=== PATIENT | female | born 1965 | race Caucasian/White ===

== ENCOUNTER 2016-11-04 09:56 | Emergency (ER) | payer OTHER ==
[~2016-11-04] VITALS: Ht 165.1 cm; Wt 68.2 kg
[~2016-11-04 09:56] MED LIST: Acetaminophen PO; DOCU-41 PO; HYDROcodone-APAP 5-325 PO; NICO1PAT6 TOPICAL; SERT20OR PO
[2016-11-04 10:01] VITALS: BP 137/84; PULSE 100; RESP 16; O2SAT 100
--- NOTE | 2016-11-04 10:54 | ED.REPORT ---
HPI-Extremity Problem Lower Date of Service Nov 04, 2016 ED Provider: Joe Castillo MD Pt is a 50 y/o female w/ a hx of MS, chronic lower extremity edema, psoriasis, presenting to the ED from Urgent Care due to left leg wound. 6 months ago, the patient scraped the back of her left leg on a step stool which caused an abrasion that never seemed to heal. 2 weeks ago, the abrasion began to expand towards her ankle. She is able to bear weight on the leg without pain. She decided to be seen today because of white torres appearing and increased weeping. She c/o associated left leg weakness which she states is attributed to her MS. She denies fever, chills, extremity pain, numbness of the leg, nausea, vomiting. She has no recent antibiotic use and her psoriasis is untreated. She has no diagnosis of diabetes although she has a family history of diabetes. Nursing Notes Stated Complaint: LEFT LEG WOUND/ SENT FROM URGENT CARE Chief Complaint: Extremity Trauma Nursing Notes Reviewed: Yes Allergies: Coded Allergies: sulfamethoxazole (Verified Allergy, Severe, Rash, 10/22/15) trimethoprim (Verified Allergy, Severe, 10/22/15) Scheduled Docusate Sodium (Colace) 100 Mg Capsule 200 MG PO DAILY Nicotine 21 mg/24 hr Patch (Nicotine 21 mg/24 hr Patch) 1 Patch Patch 1 PATCH TOPICAL DAILY Sertraline HCl (Zoloft) 20 Mg/1 Ml Oral.conc 50 MG PO DAILY Scheduled PRN ([Acetaminophen]) 325 MG TABLET 650 MG PO Q4H PRN PRN For Pain ([HYDROcodone-APAP 5-325]) 1 TABLET TABLET 1 TABLET PO Q6H PRN PRN For Moderate Pain General Time Seen by MD: 10:09 Chief Complaint Other (leg wound left) Hx Obtained From: Patient Arrived By: Walk-in, Wheelchair Onset Occurred: More than a week ago... (2 weeks) Symptom Duration: Since onset Severity: Current: No pain currently Severity: Maximum: No pain Recent Healthcare: Previous diagnosis Similar Sx Previous: Yes Past Medical History Past Medical History Notes: Followed by Dr. Alvarado, Neurologist Past Medical History Multiple Sclerosis Chronic LLE wound Degenerative Disc Disease Psoriasis Past Surgical History none reported Smoking History Current Every Day Smoker, Unknown if Ever Smoker Social History Alcohol Use: "Social" Other Social History: Good social support, , Local resident Ambulatory Status Independent Review of Systems Constitutional: Denies: Chills, Fever Musculoskeletal: Reports: Extremity swelling, Denies: Extremity pain Skin: Reports Rash, Reports Swelling Neurologic: Reports: Weakness, Denies: Numbness Complete sys rev & neg: except as marked. GI: Denies: Nausea, Vomiting Hematologic: Denies Bleeding Physical Exam Initial Vital Signs Vital Signs (First) Date Time Temp Pulse Resp B/P Pulse Ox O2 Delivery O2 Flow Rate FiO2 11/04/16 10:01 36.3 100 16 137/84 100 Room Air Initial VS: Reviewed Head / Eyes: Atraumatic, Normocephalic, PERRL ENT: Mucous membranes moist, Conjunctiva normal, No scleral icterus Neck: Supple, Full range of motion Respiratory: Breath sounds normal, Clear to auscultation, No respiratory distress Cardiovascular: Regular rate & rhythm, Heart sounds normal, Intact distal pulses Abdomen / GI: Soft, No distention Neurologic: Alert, Oriented, Nonfocal Psychiatric: Mood/affect normal, Behavior normal, Normal thought content Lower Extremity / Pelvis / MS: Atraumatic, Full range of motion, No deformity, Neurologic intact, Vascular intact, No compartment syndrome Bilateral lower extremity pitting edema to the knees. Pretibial erythema bilaterally. Large psoriatic plaques about the LLE with weeping clear fluid present. No induration or signs of infection. No purulence. Ankle / Foot: No deformity, Neurologic intact, Vascular intact Skin: Atraumatic Color / Condition: Positive: Rash present Re-Eval/Medical Decision Med Decision/Clinical Course In summary, the patient is a 50-year-old female with a history of multiple sclerosis, chronic lower extremity edema/stasis dermatitis as well as psoriasis who presents to the emergency department from urgent care due to swelling and weeping of clear fluid from her left lower extremity. Upon arrival she is borderline tachycardic with a heart rate of 100 though otherwise afebrile with stable vital signs in no apparent distress. Examination of her leg is consistent with stasis dermatitis and overlying psoriatic plaques with associated cracking and weeping of clear fluid. There is no evidence of cellulitis, abscess in the drainage is not purulent. Moreover, she is afebrile. The lower extremity swelling is bilateral and chronic my suspicion given the overall clinical picture is very low for DVT. I do not feel that workup for DVT is indicated. I do not feel that antibiotics are indicated. Without any respiratory complaints suggestive of PE or cardiogenic etiology of her lower extremity swelling. I feel that at this time she requires wound care and lower extremity elevation. Due to the extent of her psoriasis she has not tolerated compression stockings in the past. Therefore I applied a nonadherent dressings and petroleum jelly. I applied an Ozzy bandage and advised her to elevate her legs daily basis. She was provided with follow-up and return precautions and verbalized understanding and agreement with the plan. She was discharged in good condition. Re-Evaluation/Progress : Time of Eval: 11:21 Patient Status: Condition improved Re-Evaluation/Progress Note: Pt rechecked. Informed pt of plan for treatment. Pt understands and agrees with plan for treatment. F/U instructions and RTER warnings given. All questions addressed. Counseled Regarding: Diagnosis, Need for follow-up, When/why to return to ED Discharge & Departure Impression: Primary Impression: Stasis dermatitis Laterality: bilateral Qualified Code: I83.11 - Varicose veins of right lower extremity with inflammation Additional Impressions: Psoriasis History of multiple sclerosis Disposition: Home Discharge Condition All VS Reviewed: Yes Condition: Stable Patient Instructions: Psoriasis (ED), Stasis Dermatitis (ED), Acute Wound Care (ED) Additional Instructions: Thank you for seeking care at emergency room. It is difficult for us to make definitive diagnoses in the ED but we believe that you are experiencing stasis dermatitis and psoriasis. Our primary goal today in the ED was to evaluate you for any life-threatening conditions. Your evaluation was reassuring. Generously apply petroleum jelly followed by a nonadhering dressing to your legs by gentle pressure with ozzy bandages. Perform this daily. Elevate your legs above your body multiple times per day. You should follow-up with your primary doctor in the next week. You should return to the ED immediately if you develop drastic spreading of the rash, discolored discharge from the wound, fevers, vomiting, cough, shortness of breath, chest pain, lightheadedness, weakness or any other concerning signs or symptoms. Thank you for letting us partake in your care today. Referrals: [facility] Res[facility] (PCP) Scribe Attestation Portions of this note were transcribed by Michael Stringer. I, Dr. Castillo personally performed the history, physical exam and medical decision-making; I reviewed and confirmed the accuracy of the information in the transcribed note. Signed by Yana Trammell, 11/04/16 - 2300 copies to: [facility] Joe Castillo MD Nov 04, 2016 10:54 MICHAEL STRINGER Nov 04, 2016 11:05
[2017-03-12] MEDS ORDERED: TRAM-14 PO (07:57)
[2017-03-12] MEDS ORDERED: GABA100C PO (07:57)
[2017-03-12] MEDS ORDERED: METR500T PO (07:57)
== END 2016-11-04 12:06 | disposition home or self-care (01) ==
LOC: SED 09:56
DX: I83.12 Varicose veins of left lower extremity with inflammation (principal); L40.0 Psoriasis vulgaris; G35 Multiple sclerosis; S80.812A Abrasion, left lower leg, initial encounter; X58.XXXA Exposure to other specified factors, initial encounter; Y92.9 Unspecified place or not applicable; Y93.89 Activity, other specified; Y99.8 Other external cause status; F17.200 Nicotine dependence, unspecified, uncomplicated; Z88.2 Allergy status to sulfonamides; Z88.1 Allergy status to other antibiotic agents
CPT/HCPCS: 99283; G0463

== ENCOUNTER 2016-11-09 23:41 | Inpatient (IN) | payer OTHER, MEDICAID ==
[~2016-11-09] VITALS: Ht 165.1 cm; Wt 65.9 kg
[2016-11-09 23:52] VITALS: BP 134/83; PULSE 111; RESP 20; O2SAT 98
[2016-11-10] VITALS (9 sets, daily range): BP systolic 99–124; BP diastolic 48–78; PULSE 102–118; RESP 18–22; O2SAT 92–100
--- NOTE | 2016-11-10 00:36 | ED.REPORT ---
HPI-Extremity Problem Lower Date of Service Nov 10, 2016 ED Provider: Dr. Orlando Engel D.O. A 50 year old female with a history of multiple sclerosis, psoriasis, chronic lymphedema, and a chronic left leg wound presents to the ED with left leg pain onset today. The leg is red and swollen, with foul-smelling discharge. Associated symptoms include fever and chills. The patient was seen in the ED five days ago with similar symptoms, which have worsened since then. Nursing Notes Stated Complaint: LEFT LEG PAIN Chief Complaint: General Complaint Nursing Notes Reviewed: Yes Allergies: Coded Allergies: sulfamethoxazole (Verified Allergy, Severe, Rash, 11/09/16) trimethoprim (Verified Allergy, Severe, 11/09/16) Scheduled Aspirin (Aspirin) 81 Mg Tablet 81 MG PO DAILY Scheduled PRN Ibuprofen (Ibuprofen) 100 Mg Tablet 100 MG PO QID PRN PRN For Pain General Time Seen by MD: 00:36 Chief Complaint Other (Left leg pain) Hx Obtained From: Patient Arrived By: Walk-in Onset Occurred: 5 - 8 hours ago Symptom Duration: Since onset Location: : Leg left Quality: Painful Severity: Current: Moderate Severity: Maximum: Moderate Associated with: Reports: Fever (Subjective), Swelling (Left leg) Pertinent Negative: Relieved by nothing Immunizations: Unknown Recent Healthcare: Recent doctor visit Similar Sx Previous: Yes Past Medical History Past Medical History Notes: Followed by Dr. Alvarado, Neurologist Past Medical History Multiple Sclerosis Chronic LLE wound Degenerative Disc Disease Psoriasis Stasis Dermatitis Past Surgical History none reported Smoking History Current Every Day Smoker, Unknown if Ever Smoker Social History Alcohol Use: "Social" Other Social History: Good social support, , Local resident Ambulatory Status Independent Review of Systems Review of Systems Note: + left leg redness, foul-smelling discharge Constitutional: Reports: Chills, Fever (Subjective) Musculoskeletal: Reports: Extremity pain (Left leg), Extremity swelling (Left leg) Complete sys rev & neg: except as marked. Respiratory: Denies: Non-productive cough, Shortness of breath GI: Denies: Vomiting Physical Exam Initial Vital Signs Vital Signs (First) Date Time Temp Pulse Resp B/P Pulse Ox O2 Delivery O2 Flow Rate FiO2 11/09/16 23:52 36.8 111 20 134/83 98 Room Air Initial VS: Reviewed Head / Eyes: Atraumatic, Normocephalic Respiratory: Breath sounds normal, Clear to auscultation, No respiratory distress Abdomen / GI: Soft, Non-tender Neurologic: Alert, Oriented, Nonfocal Psychiatric: Mood/affect normal, Behavior normal, Normal thought content Lower Extremity / Pelvis / MS: Vascular intact Right Leg / Calf: Positive: Swelling present... Left Leg / Calf: Positive: Erythema present, Swelling present... Scrapes present on left leg Foul-smelling discharge from left leg General/Constitutional: Awake, Alert Distress / Hydration: Positive: Distress moderate (writhing in pain) Cardiovascular: Regular rhythm, Heart sounds NL, Cap refill not delayed Heart Rate / Rhythm: Positive: Tachycardia ENT: Airway patent Mouth: Positive: Mucous membranes dry Interpretation & Diagnostics Lab Results Interpretation Result Diagram: 11/11/16 0555 11/11/16 0555 Test 11/10/16 01:40 Hold Purple Top Tube Received (Received) D-Dimer 0.7mg/L (<0.50) Lactic Acid Level 1.3mmol/L (0.4-2.0) Hold Red Top Tube Received (Received) Hold [place] Top Tube Received (Received) Hold Becerra Top Tube Received (Received) Re-Eval/Medical Decision Med Decision/Clinical Course 50-year-old female presents complaining of severe left leg pain and redness. This was a very difficult historian. Most the time she seemed to writhe about in pain. She would come around with prompting answers questions. Her family was present for a while as well. Evidently they were recently seen in the emergency department. They are not exactly sure when but I can certainly check these records. She was told that she has some sort of dermatitis and discharged home with dressings. I do not believe that the dressings have been changed. Either way she presents now complaining of fever and increasing pain and foul smell from the dressings. The actual chronicity of her symptomatology is uncertain to me. It would seem to get different answers from family members. On examination she was somnolent but at times she will wake up and talk to me. Initially when she came in she was far more conversant. She then received some IV opiates it was very difficult to get a accurate history after that. She does have poor dentition without evidence of an oral pharyngeal infection. Her neck was supple without evidence of meningitis. Her lungs were clear. She was tachycardic about 120 initially. Her belly was soft without tenderness. She has edema of both legs but there certainly is some erythema of the left leg. We took the dressings off and there was some sort of dressing material/ointment on her legs. It all had a foul smell to it. Her feet were dirty. We washed all of this up and I was able to compare her legs [id number]. Her left leg is definitely brighter red than her right leg. She does have Doppler pulses. Laboratory work showed a 16,000 white blood cell count. Due to her waxing and waning mental status a CT was performed. This showed changes consistent with MS. She also had pain with range of motion of her left shoulders were x-rayed this. I do not see anything beyond arthritic changes. It is difficult to say exactly what is going on with her. She certainly could have a sepsis syndrome from cellulitis and this could be leading to encephalopathy. No signs of meningitis. I doubt highly she has pneumonia. Urine is pending at time of this dictation. I am going to start her on anti- staph and strep antibiotics. We will admit her to the hospitalist service. Hopefully her mental status clears after the opiates have run their course and that she is adequately fluid resuscitated. Consider ultrasound if the swelling persists and her d-dimer is elevated. Re-Evaluation/Progress : Time of Eval: 02:40 Patient Status: Condition improved Re-Evaluation/Progress Note: Discussed with patient lab results, diagnosis, and plan for admit. Patient agrees with plan for care and all questions were addressed. Consultation : Referral / Consult Name: Wilton Cabrera MD Consulted With: Hospitalist Call Returned at: 02:48 Pr Manager: Agrees with eval, Agrees with plan, Accepts admit Counseled Regarding: Diagnosis, Lab results, Need for admission Discharge & Departure Impression: Primary Impression: Cellulitis Site of cellulitis: extremity Site of cellulitis of extremity: lower extremity Laterality: left Qualified Code: L03.116 - Cellulitis of left lower limb Additional Impression: Lymphedema of both lower extremities Disposition: ADMITTED TO HOSPITAL Discharge Condition All VS Reviewed: Yes Condition: Improved Referrals: [facility] Residency Clinic (PCP) Scribe Attestation Portions of this note were transcribed by Valeria Alegria. I, Dr. Engel, personally performed the history, physical exam, and medical decision-making; I reviewed and confirmed the accuracy of the information in the transcribed note. Signed by: Yana Campos, 11/10/2016, 02:50 copies to: [facility] Orlando Engel DO Nov 10, 2016 00:36 VALERIA ALEGRIA Nov 10, 2016 02:20 Alkaline Phosphatase 92U/L (25-150) C-Reactive Protein 0.8mg/dL (0.0-0.5) Total Protein 7.8g/dL (6.4-8.4) Albumin 3.6g/dL (3.4-5.0) Procalcitonin 0.05ng/mL (0.00-0.08) Hold Red Top Tube Received (Received) Hold [place] Top Tube Received (Received) Hold Becerra Top Tube Received (Received) Re-Eval/Medical Decision Re-Evaluation/Progress : Time of Eval: 02:40 Patient Status: Condition improved Re-Evaluation/Progress Note: Discussed with patient lab results, diagnosis, and plan for admit. Patient agrees with plan for care and all questions were addressed. Consultation : Referral / Consult Name: Wilton Cabrera MD Consulted With: Hospitalist Call Returned at: 02:48 Pr Manager: Agrees with eval, Agrees with plan, Accepts admit Counseled Regarding: Diagnosis, Lab results, Need for admission Discharge & Departure Impression: Primary Impression: Cellulitis Site of cellulitis: extremity Site of cellulitis of extremity: lower extremity Laterality: left Qualified Code: L03.116 - Cellulitis of left lower limb Additional Impression: Lymphedema of both lower extremities Disposition: ADMITTED TO HOSPITAL Discharge Condition All VS Reviewed: Yes Condition: Improved Referrals: [facility] Res[facility] (PCP) Yana Attestation Portions of this note were transcribed by Valeria Alegria. I, Dr. Engel, personally performed the history, physical exam, and medical decision-making; I reviewed and confirmed the accuracy of the information in the transcribed note. Signed by: Yana Campos, 11/10/2016, 02:50 copies to: [facility] Orlando Engel DO Nov 10, 2016 00:36 VALERIA ALEGRIA Nov 10, 2016 02:20
[2016-11-10] MEDS ORDERED: Piperacillin-Tazo 3.375 Gm Inj 3.375 GM in Dextrose 5% Minibag Plus 50 ML IV ONE (01:05)
[2016-11-10] MEDS: HYDROmorphone 0.5 mg/0.5 mL iSecure Syringe IVPUSH PRN ×4 (01:39→05:55)
[2016-11-10 02:28] LABS: BASOPHILS % (AUTO) 0.1 % (0-3); EOSINOPHILS % (AUTO) 2.1 % (0-5); MONOCYTES % (AUTO) 6.5 % (4-12); Mean Corpuscular Hemoglobin 27.7 pg (27.0-35.0); Mean Corpuscular Volume 89.1 fL (81-100); NEUTROPHILS % (AUTO) 84.6 % (40-74); Platelet Count 476 bil/L (150-400)
[2016-11-10] MEDS: 0.9% Sodium Chloride 1,000 ML IV SCH ×3 (02:48→21:56)
[2016-11-10] MEDS ORDERED: Polyethylene Glycol (PEG) 17 Gm Powder PO PRN (02:50)
[2016-11-10] MEDS ORDERED: Ondansetron 2 mg/mL 2 mL Inj IVPUSH PRN (02:50)
[2016-11-10] MEDS ORDERED: Alum-Mag Hydrox-Simeth 30 mL Suspension PO PRN (02:50)
[2016-11-10] MEDS ORDERED: 0.9% Sodium Chloride 1,000 ML IV SCH (04:00)
--- NOTE | 2016-11-10 04:15 | PCM.CONPHA ---
Assessment/Plan Assessment/Plan Pharmacy Kinetic Dosing Vancomycin Indication: CELLULITIS Vanc goal trough: 10-15 mcg/mL Pt wt: 65.9 kg Other ABX: ZOSYN Cultures: Blood PENDING SCr: 0.60 mg/dL Assessment/Plan: - Loading dose of Vancomycin 1250 mg given in ED for (20 mg/kg dosing) -Will continue Vancomycin 1000 mg Q12H (15 mg/kg dosing) with trough scheduled prior to 4th dose on -NOV @1500 Pharmacy appreciates consult and will continue to monitor. Renetta Garcia PharmD Nov 10, 2016 04:15
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
--- NOTE | 2016-11-10 06:27 | NUR ---
ADMIT/PAIN Pt arrived to [facility] @ 0530, non-verbal and groaning with movement and repositioning. Pt vitals stable, 0.5mg Diladid given, with good results. Pt has a 20 gauge left AC with NS @ 100. Pt has LLE wrapped and tender to touch. Left hip has wound/burn covered, CDI, with wound consult. Pt on tele, SR. Admit limited on information due to patient being non-verbal at the time of arrival. No other issues noted at this time. Addendum: 11/10/16 at 0707 by ALANNA FOWLER RN LEFT HIP WOUND Pt had left hip wound covered on arrival, but dressing removed for assessment. Dressing left off for shift repot. Wound/burn shown to oncoming RN with wound evaluation ordered. Wound tender to touch, slight drainage after dressing removal. Center of wound is dark in color with redness surrounding. Wound covers large portion of the trochanter area.
[2016-11-10] MEDS ORDERED: Vancomycin Dose per Pharmacist XX SCH (08:30)
[2016-11-10] MEDS: Piperacillin-Tazo 3.375 Gm Inj 3.375 GM in Dextrose 5% Minibag Plus 50 ML IV SCH ×2 (09:25→18:51)
[2016-11-10] MEDS: Heparin 5,000 Unit/mL Inj SUBQ SCH ×2 (09:26→16:48)
--- NOTE | 2016-11-10 09:50 | DRSVH ---
PROCEDURE: CT BRAIN WITHOUT CONTRAST ([id number]) INDICATIONS: Altered mental status. Additional history obtained from chart review reveals history of multiple sclerosis. TECHNIQUE: Noncontrast 4.5 mm thick angled axial sections acquired from the foramen magnum to the vertex, with c oronal reformats. COMPARISON: [facility], MR, BRAIN W&W/O CONTRAST, 03/22/2013, 14:44. FINDINGS: Image quality: Excellent. CSF spaces: Basal cisterns are patent. No extra-axial fluid collections. Ventricles are normal in size and shape. Brain: No midline shift. Low density foci are seen within the bilateral periventricular and subcorti [place] white matter, as before, largest of which is in the right parietal periventricular white matter m easuring 14 mm, consistent with the patient's history of multiple sclerosis. No intracranial masses o r hemorrhage. Cade-white matter interface is normal. Skull and face: Calvarium and visualized facial bones are intact, without suspicious lesions. Sinuses: Visualized sinuses and mastoids are clear. IMPRESSION: 1. No acute intracranial abnormality. 2. Low density white matter lesions bilaterally, consistent with multiple sclerosis. Dictated by: Noble Ramires M.D. on 11/10/2016 at 9:45 Approved by: Noble Ramires M.D. on 11/10/2016 at 9:48
--- NOTE | 2016-11-10 09:57 | DRSVH ---
PROCEDURE: X-RAY LEFT SHOULDER, MINIMUM TWO VIEWS ([id number]) INDICATIONS: left shoulder pain TECHNIQUE: 3 views of the shoulder were acquired. COMPARISON: None. FINDINGS: Bones: No fractures or dislocations. No suspicious bony lesions. Visualized ribs appear intact. M ild joint narrowing with periarticular osteophyte formation. Superior migration of the humeral head. Soft tissues: No suspicious soft tissue calcifications. IMPRESSION: Mild acromioclavicular and glenohumeral joint degeneration. Superior migration of the humeral head consistent with rotator cuff pathology and/or muscle atrophy. If indicated MRI could be performed to further evaluate the soft tissues. Dictated by: Hao CUENCA Interpreted: Caryn Galindo MD on 11/10/2016 at 9:56 Transcribed by: MOHAN on 11/10/2016 at 9:57 Approved by: Caryn Galindo MD, PhD on 11/10/2016 at 15:50
[2016-11-10] MEDS ORDERED: HYDROmorphone 1 mg/mL Inj IVPUSH ONE (10:05)
--- NOTE | 2016-11-10 10:30 | NUR ---
Wound Care Wound evaluation order received, pt seen at bedside for assessment of left hip ulcer and left leg ulcer. Dunia Jerez is a 50 year old female with Multiple sclerosis, psoriasis, chronic lymphedema, and a chronic left leg wound presents to [facility] emergency department with left leg pain. Reportedly her left thigh wound is secondary to falling on a heater vent in her RV. This could be plausible, the other cause would be possible pressure injury phenomena, unsure of patients baseline mobility at this time. At any rate there is a 6 cm L x 3.5 cm W ulcer at her left hip that is covered with a leathery chawla eschar, this was removed to assess underlying tissue which appears to be necrotic fat, wound is not infected at this time. Wound does not tunnel either. After debriding this wound it was cleaned with hydrogen peroxide and betadine then redressed with hydrogel and a adhesive foam dressing. Attention was then turned to her left lower leg which has all the markings of venous hypertension and lymphedema with chawla staining and edema, the lower leg is circumferentially covered with a stasis dermatitis and the skin is excoriated, this area too was treated with hydrogen peroxide and betadine and was then covered with a Xeroform dressing and abd pad and kerlix wrapped. Pt will be best served treating the left hip wound as if it is a pressure injury so will need positioning off of the wound and a low airloss mattress. Wound care will reassess these wounds in 24 hours. Addendum: 11/17/16 at 1117 by CYNTHIA ALEX NonExcisional debridement of necrotic tissue using a #10 blade down to subcutaneous tissue. Left hip wound measures 6 cm L x 3.5 cm W x 0.2 cm D after debridement.
[2016-11-10 11:52] LABS: APPEARANCE,URINE HAZY (CLEAR,HAZY); COLOR,URINE YELLOW (YELLOW); OCCULT BLOOD,URINE TRACE (NEGATIVE); UROBILINOGEN,URINE NORMAL (NORMAL)
--- NOTE | 2016-11-10 12:04 | CONS ---
[address] [address] CONSULTATION REPORT PATIENT: DARLENE DIAZ : 1965 MR#: [id number] ADMIT: 11/10/2016 JOB ID: [id number] DATE OF SERVICE: 11/10/2016 INFECTIOUS DISEASE CONSULTATION: I thank Dr. Tucker for this consultation. REASON FOR CONSULT: Possible left lower extremity infection. HISTORY OF THE PRESENT ILLNESS: The patient is a woman who lives in an in the [place] area with her . She has a 15-year history of multiple sclerosis with progressive difficulties apparently with speech locomotion and especially left lower extremity weakness. She has been followed intermittently by Dr. Alvarado of neurology and states she has not seen a primary care doctor for a while. She was brought to the emergency department last night and admitted. It was stated at that time that the patient is basically unresponsive at her normal baseline and that she had progressive swelling and tenderness of the left lower extremity. This had apparently been going on for some weeks. It may been exacerbated by a fall and striking her chronically weak and swollen left lower extremity on a part of the RV which may have made all of this worse over a week or two. This history was largely obtained apparently in the ED from her , who also stated that at baseline she is almost unresponsive. This morning when I initially started to examine the patient, she did not really appear to be able to answer any questions as the history provided in the ED might suggest. However, with some coaxing we actually were able to get the patient completely awake. Though a bit lethargic, she was able to tell us her exact location, as well as the year, and answer many of the questions related to her current presentation. This is at variance with what was provided in the ED and that, in and of itself, is quite odd. The patient tells us this morning that for three months or so her left lower extremity has been bothering her. She states it has been injured multiple times by falls, and it has been red, swollen and, to some degree, weeping lately. She also tells us that her ambulation is very poor because of her multiple sclerosis and she needs help to get around. She notes that she is incontinent of urine and that the chart notes from 2014, when she was last admitted, confirmed that she has urinary incontinence, so it sounds like she has been sitting with wet diapers or in her own urine for a considerable period. Despite this worsening of the left lower leg pain and swelling, she denies significant fevers or chills. She notes that she has a chronic lesion on her left hip but has not been especially problematic lately. PAST MEDICAL HISTORY: 1. Multiple sclerosis. 2. Chronic venous stasis changes of both lower extremities. 3. Urinary incontinence. Presumably due to multiple sclerosis. 4. Inability to safely ambulate. The patient tells us she uses a wheelchair to get around. SOCIAL HISTORY: The patient is a 50-year-old woman who lives with her in an . She states her is retired and usually with her, and he will have people check in on her when he is not available. That said, she does have a lot of trouble getting up and with toileting and other functions. She states she is a cigarette smoker, though it is unclear how much of that has been recent. She also tells us she does not drink alcohol, and she does smoke marijuana. She does not use heroin or amphetamines by her report. She tells us a recent accident with her daughter's dog left her with a severe injury to her teeth. She also tells us she has three children. FAMILY HISTORY: The patient states no one in her immediate family including parents, children, or siblings have had tuberculosis. REVIEW OF SYSTEMS: Done to the extent it was possible given the patient's weakness and lethargy. She tells us today she has no headache, no acute visual change, no double vision. No sore throat. She does note her teeth are in poor repair. She states no cough. No shortness of breath. No chest pain. No nausea, no vomiting and no diarrhea. She states she is able to eat and has a fair appetite. She says she is usually or always, it is hard to tell, incontinent of urine but not stool. She notes she has chronic left lower extremity pain and cannot ambulate without a great deal of assistance. She notes that she has had a chronic lesion on her left hip and three months of increasing pain around her left lower extremity. Remainder of the review of systems is negative. PHYSICAL EXAMINATION: Reveals a chronically ill woman lying on her side in a hospital bed. We examined her with the wound rn disease management, as well as with the Nursing team and the Primary Hospitalist team as well. The patient initially appeared to be unresponsive and was just occasionally moaning as her left hip wound was being debrided but with some effort, it became clear that she is actually oriented x3 and has some insight into her condition. She does appear to be emotionally labile, however. Her current temperature is 37 degrees, and she has been afebrile during her brief hospital stay. Her pulse is 100, respiratory rate 20, blood pressure 124/78, saturating 97% on room air. Her eyes have conjugate gaze. There is no conjunctival change or scleral icterus. The nose is normal appearing. The teeth are largely chipped or broken, and they appear almost desiccated and in very poor maintenance. The throat is without pharyngitis. Neck is supple this morning, without adenopathy. Lungs quite clear posteriorly. Cardiac tones: Regular rate and rhythm without murmurs. No notable abnormalities of the breasts. The patient's abdomen is soft and nontender, without organomegaly or ascites. She does not have a Cordero catheter. She does not have suprapubic fullness. Her upper extremities appear essentially benign. Her lower extremities, both have some venous stasis type change and mild edema. The left leg is much worse, however, below the knee in that there are areas of confluent bright erythema with some shallow bullae present over the top which has the appearance of a cellulitis. This area is warm and somewhat tender and was cultured today. The patient's hips were examined, and the left hip had a 6 x 3 cm eschar over the trochanteric area. This was sharply debrided by the wound rn disease management while we were in the room and underneath was of fairly unimpressive stage 3 ulcer, which did not appear to be infected. There was also a confluent erythroderma around her buttocks and genitals which could be due to just irritation from urine or conceivably could be fungal. The feet are without evidence of skin breakdown or infection bilaterally. The patient's neurologic status is difficult to evaluate. She is oriented x3 and she can clearly move her upper extremities but we saw little evidence of motion of the lower extremities, which appear to be suffering from some degree of disuse, though a formal neuro exam could not be done due to the patient's discomfort and positioning. It would be worthwhile to have Physical Therapy formally evaluate her motor functions. Remainder of the physical exam was noncontributory. LABORATORIES: Include white count 16,000, hematocrit 36, platelet count 476,000. Creatinine 0.62. LFT basically normal. CRP 0.8, very slightly increased. Procalcitonin 0. Blood cultures are pending. DIAGNOSTIC STUDIES: Venous study of the left lower extremity has been done but not read. A brain CT shows multiple sclerosis type lesions bilaterally with low density white matter lesions. An x-ray of her shoulder shows AC and glenohumeral degeneration on the left shoulder which she has been complaining about intermittently. IMPRESSION: This is a very unfortunate woman with multiple sclerosis for 15 years. It would appear that she is not getting out of bed or out of a chair very often and spending a great deal of time sitting giving the hip lesion, which I failed to mention in my physical but which measures 6 x 3 cm and has an eschar over it on the left hip, as well as the generalized erythroderma around her buttocks and the venous stasis in both legs with superimposed cellulitis on the left side, the combination of urinary incontinence and immobility, which seem to be contributing to a great deal of her current issues. With respect to infection, the only really impressive thing here is her white count of 16,000 with minimal left shift. Her procalcitonin, CRP and other studies argue against a life-threatening infection, certainly. At this point, I think we will need to cover the patient for common skin type organisms such as staphylococcus, streptococcus and perhaps even anaerobes briefly. I see no particular reason to think this patient would have methicillin-resistant Staphylococcus aureus and absolutely would not give her a methicillin-resistant Staphylococcus aureus drug such as vancomycin. RECOMMENDATIONS: 1. MRSA screen of the nares has been ordered. 2. We cultured the left lower extremity. 3. ASO titer was added to her labs. 4. We await the cultures which have been sent. 5. She is currently on vancomycin and Zosyn, and I think at a minimum we could stop the vancomycin immediately and will reconsider the Zosyn tomorrow. 6. This patient should be evaluated both by Social Work for her home situation, as well as by Physical Therapy to see how much she can do. 7. The duration and type of the antibiotic she should receive will depend on our studies. 8. This patient may be candidate for a SNF, at least for a brief period to recover.
[2016-11-10] MEDS ORDERED: ASPI-973 PO (12:12)
[2016-11-10] MEDS ORDERED: IBUP100T7 PO (12:13)
--- NOTE | 2016-11-10 12:30 | NUR ---
Evaluation completed. Please go to "Notes" then click on "Assessments and Notes" (bottom left corner of screen). Then select appropriate discipline tab on top of screen.
--- NOTE | 2016-11-10 12:40 | DRSVH ---
PROCEDURE: US VEINOUS LEG DUPLEX UNILATERAL, LEFT INDICATIONS: swelling pain r/o dvt TECHNIQUE: Real-time imaging, as well as color and pulse Doppler interrogation, were performed of the lower extr emity deep veins from the inguinal ligament to the popliteal fossa. COMPARISON: None. FINDINGS: The deep veins are normally compressible, and free of intraluminal thrombus. Color and pu lse Doppler demonstrate normal phasic intraluminal flow. There is normal augmentation response to di stal compression maneuver. A large multiple groin lymph nodes. IMPRESSION: 1. No deep venous thrombosis identified within the left lower extremity. 2. Enlarged morphologically normal appearing groin lymph nodes measuring up to 1.2 cm. Recommend cli nical management and followup. Dictated by: Hao Rene [facility] Interpreted: Caryn Galindo MD on 11/10/2016 at 12:39 Transcribed by: MOHAN on 11/10/2016 at 12:39 Approved by: Caryn Galindo MD, PhD on 11/10/2016 at 16:29
--- NOTE | 2016-11-10 13:29 | PCM.PNMED ---
Subjective Date of Service Nov 10, 2016 Subjective Dunia Jerez is a 50 year old female with Multiple sclerosis, psoriasis, chronic lymphedema, and a chronic left leg wound presents to [facility] emergency department with left leg pain. Admitted for cellulitis. Hospital day 1. Overnight: Patient was admitted and started on emperic antibiotics including vancomycin and zosyn. Today: Patient is lethargic but able to answer questions appropriately. She is alert and oriented 3. She states that she is being treated by Dr. Alvarado for her multiple sclerosis. She said she is able to walk with a walker and assistance. Otherwise uses her wheelchair. She states her left lower extremity is painful and has been for greater than 3 months. She denies any pain associated with left hip pressure ulcer. She denies any fever, chills, night sweats, chest pain, shortness of breath, nausea, vomiting, diarrhea. She is an every day smoker but denies any alcohol or illicit drug use. Remaining review of systems negative. Exam Vital Signs Vital Sign - Last Date Time Temp Pulse Resp B/P Pulse Ox O2 Delivery O2 Flow Rate FiO2 11/10/16 07:06 102 11/10/16 05:30 37.0 20 124/78 97 Room Air Intake and Output 11/09/16 11/09/16 11/10/16 Cumulative From/Thru 15:00 23:00 07:00 11/09/16 23:52 - 11/10/16 06:25 Intake Total 1100 ml 1100 ml Balance 1100 ml 1100 ml Intake IV Total 1100 ml 1100 ml Exam General: Alert, Oriented X3, Cooperative, No acute distress Eyes: PERRLA, Scleral Anicteric Mouth: Poor dentition, mucous membranes dry. Neck: Supple, no Thyromegaly, trachea central. Chest & Lungs: Clear to auscultation & percussion, No adventitious breath sounds, no crackles, no wheeze Cardiovascular: Normal S1, Normal S2, No Murmurs/Rubs/Gallops, Regular Rate/ Rhythm Pulses: Radial (present and equal), Dorsalis Pedi (present and equal) Abdomen: Soft, Non-tender, Non-distended, Normoactive bowel tones. Musculoskeletal: Unremarkable. Normal range of motion, no swollen or erythematous joints. Tenderness with range of motion of left shoulder. Extremities: Chronic venous stasis of bilateral lower extremities. Left lower extremity below the knee was warm and erythematous with shallow bullae present. Skin: Left hip pressure ulcer measuring 6 x 3 cm with eschar over top that was removed by wound care today. Confluent erythematous region on her buttocks likely due to irritation from urine. Neurological: Grossly neurologically intact. Weakness of upper extremities. Lab and Diagnostics Result Diagram: 11/10/1613911/10/16139 X-Rays, CTs and MRIs CT BRAIN WITHOUT CONTRAST IMPRESSION: 1. No acute intracranial abnormality. 2. Low density white matter lesions bilaterally, consistent with multiple sclerosis. Dictated by: Noble Ramires M.D. on 11/10/2016 at 9:45 Approved by: Noble Ramires M.D. on 11/10/2016 at 9:48 Assessment & Plan Dunia Jerez is a 50 year old female with Multiple sclerosis, psoriasis, chronic lymphedema, and a chronic left leg wound presents to [facility] emergency department with left leg pain. Admitted for cellulitis. Hospital day 1. 1. Acute left leg cellulitis. Present on admission. Active. - Patient has psoriasis and dermatitis which may cause break in the skin to allow portal of entry. Patient may also be immunocompromised. It is unclear if there are any underlying abscess at this time - Vancomycin and Zosyn IV for empiric antibiotics initially started. Vancomycin discontinued 11/10. - Wound cultured and sent. Results pending. - ASO and MRSA sent. Results pending. - Ultrasound of the left lower extremity completed awaiting results. - Wound care consulted. Appreciate time and expertise. - Infectious disease consulted. Appreciate time and expertise. 2. Leukocytosis. Present on admission. Active. - secondary to cellulitis. - Antibiotics as above. - Procalcitonin pending. - Repeat labs in the morning. 3. Acute Encephalopathy. Present on admission. Improving. - Unknown baseline. Patient alert and oriented this morning and able to answer questions appropriately. She does appear lethargic. - Have not been able to contact family at this time. We will continue to try. - CT head without contrast negative for any acute process. - Urine tox screen sent. Awaiting results. - IV Dilaudid stops switched to Percocet when necessary. 4. Unstageable pressure ulcer of left hip. Present on admission. Active. - Patient is unsure of when she developed ulcer. - Eschar removed this morning and new dressing applied. - Wound care consulted. Appreciate time and expertise. 5. Multiple Sclerosis. Present on admission. Chronic. - Patient states she is not currently on any treatment and has failed multiple in the past. Dr. Alvarado is her neurologist. - Patient lives in an and states it is difficult to get around with her walker. Living situation not ideal possibly contributing to her wounds. - Continue Baclofen for spasticity. - tnt powder worker consulted to address any needs at home. 6. Psoriasis. Present on admission. Chronic. - Consider dermatology and rheumatology as outpatient. 7. Likely yeast infection of buttock and groin. Present on admission. Active. - Likely secondary to bowel and bladder incontinence. - Cordero catheter placed to help decrease irritation. - Fluconazole started /. - Acetaminophen as needed for mild pain/fever/headache - Bowel regimen as needed - Antiemetic as needed Disposition: The patient currently being treated for cellulitis with attempts being made to ascertain her mental baseline. Patient admitted under inpatient status with expected length of stay > 2 midnights for severity of present symptoms, complexities of treatment plan and risk for adverse event. Pain Evaluation: Adequate Pain Control VTE Prophylaxis: Sub-Q Heparin (Unfractionated) Resuscitation Status: CPR: Attempt Resuscitation Attending Statement patient seen and examined with Dr Lua ,I agree with history,exam ,assessment and plan as outlined above . ARPITA LUA DO Nov 10, 2016 07:51 David Spears MD Nov 10, 2016 16:48
--- NOTE | 2016-11-10 14:10 | NUR ---
Social Work: Screen D: Per EMR review, pt is a 50 year old female admitted for cellulitis L Leg. Pt is [employer] with [facility] supplement. PCP is through [facility]. NOK is Aguilar Massey, significant other. Readmit score is not entered at this time. Pt discussed in am rounds. Pt continues to have AMS and is a poor historian. Family has not been present and is unreachable. SPINNING MACHINE TENDER, bedside RN and admit RN have reviewed all of pt's admissions and attempted contact with pt's s/o at all of the listed numbers- none of which are working. SPINNING MACHINE TENDER wrote case management contact information on pt's white board and requested call from family. t/c to [facility] to inquire if pt has any [facility] caregiving; pt is not open for BRIANA services and only receives financial assistance through [facility]. Per H&P pt reports that she lives with her spouse in an RV. Pt has very significant wounds on her Left Leg. Wound care and ID are following and making recommendations. A: Pt who's history is relatively unknown. P: SPINNING MACHINE TENDER to continue to follow closely and continue attempts to contact family; ASHELY Cyr
[2016-11-10] MEDS ORDERED: Vancomycin Inj 1,000 MG in IV Premix 1 EACH IV SCH (15:30)
[2016-11-10] MEDS ORDERED: Acetaminophen IV 1,000 MG in IV Premix 1 EACH IV PRN (16:50)
--- NOTE | 2016-11-10 17:49 | NUR ---
Transfer to 3019 Patient somnolent most of the day, responds to repeated touch/verbal stimuli. Moans in pain with care, gives one word answer to questions. Seen by aba tutor for LLL cellulitis and L hip sore. Dressings C/D/I. Cordero catheter placed by this RN for incontinence/skin breakdown. VSS. Report given to SHRUTI Cruz
--- NOTE | 2016-11-10 17:53 | NUR ---
Transfer Patient arrived to [facility] floor from [facility]. Report recieved from Osvaldo Rondon RN. Patient not responding to questions. Does moan and open eyes occasionally. Not following commands verbally. Dressing C/D/I to L hip as well as LLE. IVF running as ordered. Per nuclear monitoring technician HR low 100's tachy. Bed alarm on for safety. Continue frequent rounding.
[2016-11-11] VITALS (10 sets, daily range): BP systolic 101–130; BP diastolic 63–75; PULSE 88–120; RESP 16–20; O2SAT 91–96
[2016-11-11] MEDS: Heparin 5,000 Unit/mL Inj SUBQ SCH ×3 (00:36→16:17)
[2016-11-11] MEDS: Piperacillin-Tazo 3.375 Gm Inj 3.375 GM in Dextrose 5% Minibag Plus 50 ML IV SCH ×3 (01:41→17:43)
--- NOTE | 2016-11-11 03:01 | NUR ---
Fever/Mucus Pt was very lethargic at beginning of shift and would only wake briefly before falling back to sleep. Pt woke suddenly and began calling out and crying out. This RN found Pt writhing in bed with mucus covering mouth and Pt gasping for air. Mucus plug was removed from pts mouths, HOB raised, and Pt was encouraged to spit out any excess mucus as well as cough. Pts vitals were taken and found to be WNL. Pt was placed on CPOx and Md notified of incident. Sputum and Viral PCR sent at this time per MD order. Pt presented with a fever and received IV APAP as well as periodic cool wash cloth bathing. Pts temperature has returned to normal limits.
[2016-11-11 07:07] LABS: BASOPHILS % (AUTO) 0.4 % (0-3); EOSINOPHILS % (AUTO) 2.2 % (0-5); MONOCYTES % (AUTO) 8.3 % (4-12); Mean Corpuscular Hemoglobin 28.1 pg (27.0-35.0); Mean Corpuscular Volume 89.4 fL (81-100); NEUTROPHILS % (AUTO) 73.9 % (40-74); Platelet Count 335 bil/L (150-400)
[2016-11-11] MEDS: oxyCODONE-Acetamin 5-325 mg Tablet PO PRN ×2 (11:06→22:30)
[2016-11-11] MEDS: 0.9% Sodium Chloride 1,000 ML IV SCH ×2 (11:15→19:49)
--- NOTE | 2016-11-11 14:19 | PROG NOTE ---
[address] [address] PROGRESS NOTE PATIENT: DARLENE DIAZ : 1965 MR#: [id number] ADMIT: 11/10/2016 JOB ID: [id number] DATE: 11/11/2016 INFECTIOUS DISEASE FOLLOWUP NOTE: REASON FOR FOLLOWUP: Streptococcal cellulitis left lower extremity. INTERVAL HISTORY: The patient tells us today that she is feeling okay. She denies fevers, chills, or cough. No chest pain. No GI symptoms. She says she has absolutely no dysuria. She notes that her left lower extremity pain continues but perhaps is better though it is difficult to quantitate. PHYSICAL EXAMINATION: Reveals an afebrile woman. Recall that she was febrile to 38.9 on admission. She is currently 37.1 degrees, pulse about 110, respiratory rate 20, blood pressure 115/68. She is saturating well on room air. She still has slow speech, but she clearly is oriented and able, if given enough time, to tell a history. The lungs are relatively clear. Cardiac tones without murmur, though she is tachycardic. Abdomen is soft and nontender. The patient's left hip wound was sharply debrided yesterday and has a dressing applied today I did not remove. The erythematous exanthem over her buttocks and flank has subsided quite a bed, and recall this was an area that was chronically wet with urine, which maybe had a candidal infection yesterday, which we provided some fluconazole for. The left lower extremity, which was the main site of potential infection, continues to be erythematous but there is now some wrinkling and improvement. LABORATORIES: Include a white count which has dropped from 16,000 to 8000. Procalcitonin basically zero. Creatinine 0.66. LFTs are normal. CRP is 8.6, a bit elevated. Urinalysis without any white cells. Urine tox screen interestingly positive for amphetamines and cannabinoids. Streptozyme grossly elevated at 763 which confirms recent or current group A strep infection. Nasopharyngeal respiratory viral PCR panel negative. MRSA screen is pending. Culture of the leg is growing a light growth of Pseudomonas, but that was not seen on the Gram stain, and I do not think that is the primary pathogen. Culture of the urine is growing Pseudomonas greater than 10 to 5th but the urinalysis itself had no white cells and the patient has no urinary symptoms. The sputum Gram stain and culture has moderate normal jennifer. IMAGING: No new imaging has been done. IMPRESSION: This is an unfortunate 50-year-old woman with multiple sclerosis who may also be using cannabinoids. She presented with a significant left lower extremity cellulitis as well as a diffuse erythematous rash around her buttocks and genital area which appeared to be a diaper type rash due to being wet and perhaps some candidal superinfection. It did not seem yesterday, nor does it seem today, that she has much of urinary tract infection. We have cultures growing Pseudomonas from the skin, which is likely just a colonizer, and from the urine which is probably not a pathogen as she does not have pyuria or symptoms. On the other hand, we have a umu high ASO titer which strongly indicates group A strep as the cause of her left lower extremity cellulitis. RECOMMENDATIONS: 1. I would continue with Zosyn through the weekend to treat both the group A strep infection of the leg, which we have proven, as well as the less likely contribution of Pseudomonas to the skin infection on the leg and the urinary tract. 2. I would continue with the fluconazole for three days or so and then stop. 3. The patient can probably discharge on Monday or so, assuming things continue to progress on oral amoxicillin as her sole antibiotic to treat the group A strep for a bit longer.u
--- NOTE | 2016-11-11 14:48 | PCM.PNMED ---
Subjective Date of Service Nov 11, 2016 Subjective Dunia Jerez is a 50 year old female with Multiple sclerosis, psoriasis, chronic lymphedema, and a chronic left leg wound who presents to [facility] emergency department with left leg pain. Admitted for cellulitis. Overnight: Vancomycin was discontinued. Streptozyme returned positive Today: This morning patient was still somewhat somnolent but appropriately answering questions. She reports she has not had medical care in the last few years. She has not been taking any medications either. Discussed with patient the positive Amphetamine blood test and she reports she used Meth in the past, but not recently. She denies any other drug usage except occasional marijuana. She currently only reports some mild left leg pain and shoulder pain, but denies any CP or SOB. She also reports some abdominal pain and reports she hasn' t had a BM in a few days. Exam Vital Signs Vital Sign - Last Date Time Temp Pulse Resp B/P Pulse Ox O2 Delivery O2 Flow Rate FiO2 11/11/16 04:49 94 11/11/16 04:31 36.6 16 115/75 96 Room Air Intake and Output 11/10/16 11/10/16 11/11/16 Cumulative From/Thru 15:00 23:00 07:00 11/09/16 23:52 - 11/11/16 06:08 Intake Total 0 ml 2123 ml 3223 ml Output Total 800 ml 550 ml 1350 ml Balance -800 ml 1573 ml 1873 ml Intake Oral 0 ml 0 ml 0 ml IV Total 2123 ml 3223 ml Output Urine Total 800 ml 550 ml 1350 ml # Bowel Movements 0 0 Exam General: Alert but mildly somnolent, Oriented X3, Cooperative, No acute distress Eyes: PERRLA, Scleral Anicteric Mouth: Poor dentition, mucous membranes dry. Neck: Supple, mildly tender to palpation on right side Chest & Lungs: Clear to auscultation & percussion, No adventitious breath sounds, no crackles, no wheeze Cardiovascular: Normal S1, Normal S2, No Murmurs/Rubs/Gallops, Regular Rate/ Rhythm Pulses: Radial (present and equal), Dorsalis Pedi (present and equal) Abdomen: Soft, Non-tender, Non-distended, Normoactive bowel tones. Musculoskeletal: Unremarkable. Normal range of motion, no swollen or erythematous joints. Tenderness with range of motion of left shoulder. Extremities: Chronic venous stasis of bilateral lower extremities. Left lower extremity below the knee was warm and erythematous with shallow bullae present. Skin: Left hip pressure ulcer covered in dressing. Confluent erythematous region on her buttocks likely due to irritation from urine. Neurological: Grossly neurologically intact. Weakness of upper extremities. IVs and Medications Medications Reviewed: Medications were reviewed in detail Lab and Diagnostics Result Diagram: 11/10/1613911/10/16139 X-Rays, CTs and MRIs CT BRAIN WITHOUT CONTRAST IMPRESSION: 1. No acute intracranial abnormality. 2. Low density white matter lesions bilaterally, consistent with multiple sclerosis. Dictated by: Noble Ramires M.D. on 11/10/2016 at 9:45 Approved by: Noble Ramires M.D. on 11/10/2016 at 9:48 Assessment & Plan Dunia Jerez is a 50 year old female with Multiple sclerosis, psoriasis, chronic lymphedema, and a chronic left leg wound presents to [facility] emergency department with left leg pain. Admitted for cellulitis. Hospital day 1. 1. Acute left leg cellulitis. Present on admission. Active. - Patient has psoriasis and dermatitis which may cause break in the skin to allow portal of entry. Patient may also be immunocompromised. It is unclear if there are any underlying abscess at this time - Vancomycin and Zosyn IV for empiric antibiotics initially started. Vancomycin discontinued 11/10. - Wound cultured and sent. Results pending. - Streptozyme positive - 763 - Ultrasound of the left lower extremity - no DVT, although enlarged groin lymph node noted - Wound care consulted. Appreciate time and expertise. - Infectious disease consulted. Appreciate time and expertise. - ID recommends IV Zosyn until Monday then d/c on Amoxicillin. Continue oral Fluzonazole for 3 days total 2. Leukocytosis. Present on admission. Active. - secondary to cellulitis. - Antibiotics as above. - Procalcitonin 0.06 but crp is 8.6 3. Acute Encephalopathy. Present on admission. Resolving - Unknown baseline. Patient alert and oriented this morning and able to answer questions appropriately. She does appear lethargic still - Have not been able to contact family at this time. We will continue to try. - CT head without contrast negative for any acute process. - Urine tox screen positive for amphetamine and patient reports history of Meth usage. - PO Percocet for pain control. 4. Pressure ulcer of left hip. Present on admission. Active. - Patient is unsure of when she developed ulcer. - Eschar removed and new dressing applied. - Wound care consulted. Appreciate time and expertise. 5. Multiple Sclerosis. Present on admission. Chronic. - Patient states she is not currently on any treatment and has failed multiple in the past. Dr. Alvarado is her neurologist. - Patient lives in an and states it is difficult to get around with her walker. Living situation not ideal possibly contributing to her wounds. - Continue Baclofen for spasticity. - bin worker consulted to address any needs at home. Patient denies any conflicts at home and reports she feels safe. - Dr. Calvert's office called and note patient has not been seen in 2 years and is not on any DMARDs currently. 6. Psoriasis. Present on admission. Chronic. - Continue to monitor. 7. Likely yeast infection of buttock and groin. Present on admission. Active. - Likely secondary to bowel and bladder incontinence. - Cordero catheter placed to help decrease irritation 2/ - Fluconazole started 11/10. - Acetaminophen as needed for mild pain/fever/headache - Bowel regimen as needed - Antiemetic as needed Disposition: Plan for discharge on Monday if medically stable. Pain Evaluation: Adequate Pain Control VTE Prophylaxis: Sub-Q Heparin (Unfractionated) VTE Mechanical Devices: Intermittant Pneumatic CD Resuscitation Status: CPR: Attempt Resuscitation Time spent 30 minutes Attending Statement I have seen and evaluated patient at bedside, in addition to directly supervising care provided by resident physician. I agree with above documentation. Eligio Matthews DO Nov 11, 2016 06:51 Andrew Soto DO Nov 11, 2016 15:28
[2016-11-11] MEDS ORDERED: Vancomycin Serum Trough XX ONE (15:00)
--- NOTE | 2016-11-11 19:15 | NUR ---
Wound Seen at bedside, debridement of left hip wound, redressed with hydrogel and adhesive foam dressing, nursing to change daily. leg leg, improved, redressed with mepilex foam, kerlix and fallon wrap, nursing to change q 48 hrs. Addendum: 11/17/16 at 1118 by CYNTHIA ALCAZAR NonExcisional debridement of devitalized tissue using a #10 blade down to subcutaneous tissue. Left hip wound measures 6 cm L x 3.5 cm W x 0.3 cm D after debridement.
[2016-11-12] VITALS (7 sets, daily range): BP systolic 122–144; BP diastolic 70–88; PULSE 88–119; RESP 16–20; O2SAT 90–94
[2016-11-12] MEDS: Heparin 5,000 Unit/mL Inj SUBQ SCH ×3 (00:56→16:52)
[2016-11-12] MEDS: Piperacillin-Tazo 3.375 Gm Inj 3.375 GM in Dextrose 5% Minibag Plus 50 ML IV SCH ×3 (00:56→17:06)
--- NOTE | 2016-11-12 02:17 | NUR ---
turn and reposition patient turned and repositioned every two hours for optimal healing of left hip wound and optimal skin care. patient prefers her right side and back only. does not tolerate left side. patient medicated for pain as documented with tylenol and percocet. resting comfortably. plan to cont. repositioning every 2 hours. p500 Low air loss bed ordered and received. plan to transferr patient to bed early this am.
[2016-11-12] MEDS: oxyCODONE-Acetamin 5-325 mg Tablet PO PRN ×4 (04:14→20:41)
[2016-11-12] MEDS: 0.9% Sodium Chloride 1,000 ML IV SCH ×2 (04:19→22:20)
[2016-11-12 07:49] LABS: BASOPHILS % (AUTO) 0.1 % (0-3); MONOCYTES % (AUTO) 7.1 % (4-12); Mean Corpuscular Hemoglobin 27.7 pg (27.0-35.0); Mean Corpuscular Volume 87.8 fL (81-100); NEUTROPHILS % (AUTO) 71.5 % (40-74); Platelet Count 369 bil/L (150-400)
--- NOTE | 2016-11-12 09:51 | NUR ---
Evaluation completed. Please go to "Notes" then click on "Assessments and Notes" (bottom left corner of screen). Then select appropriate discipline tab on top of screen.
[2016-11-12] MEDS ORDERED: LORazepam 0.5 mg Tablet PO PRN (11:40)
--- NOTE | 2016-11-12 11:49 | PCM.PNMED ---
Subjective Date of Service Nov 12, 2016 Subjective Overnight she had a fever Tmax of 38.2 again. She continues to be mildly tachycardic. This morning, she reports she feels about the same. Her leg and hip is still somewhat painful, but well controlled with Percocets. She has been tolerating some PO intake last night. Denies any CP, SOB, or diarrhea. She relays that she hasn't had a BM in a few days. I have not seen her significant other or any visitors yet. Exam Vital Signs Vital Sign - Last Date Time Temp Pulse Resp B/P Pulse Ox O2 Delivery O2 Flow Rate FiO2 11/12/16 10:41 36.5 101 18 144/88 94 Room Air Intake and Output 11/11/16 11/11/16 11/12/16 Cumulative From/Thru 15:00 23:00 07:00 11/09/16 23:52 - 11/12/16 06:18 Intake Total 708 ml 0 ml 3931 ml Output Total 640 ml 850 ml 2840 ml Balance 68 ml -850 ml 1091 ml Intake Oral 708 ml 0 ml 708 ml IV Total 3223 ml Output Urine Total 640 ml 850 ml 2840 ml # Bowel Movements 0 0 0 Exam General: Alert but mildly somnolent, Oriented X3, Cooperative, No acute distress Eyes: PERRLA, Scleral Anicteric Mouth: Poor dentition, mucous membranes dry. Neck: Supple, mildly tender to palpation on right side Chest & Lungs: Clear to auscultation & percussion, No adventitious breath sounds, no crackles, no wheeze Cardiovascular: Normal S1, Normal S2, No Murmurs/Rubs/Gallops, Regular Rate/ Rhythm Pulses: Radial (present and equal), Dorsalis Pedi (present and equal) Abdomen: Soft, Non-tender, Non-distended, Normoactive bowel tones. Musculoskeletal: Unremarkable. Normal range of motion, no swollen or erythematous joints. Tenderness with range of motion of left shoulder. Mild tenderness of right neck. Extremities: Chronic venous stasis changes of bilateral lower extremities. Left lower extremity below the knee warm and erythematous, covered in compressive bandaging. Skin: Left hip pressure ulcer covered in dressing. Confluent erythematous region on her buttocks likely due to irritation from urine - improving. Neurological: Grossly neurologically intact. No focal weakness IVs and Medications IV Fluids 50 mls/hr NS Medications Reviewed: Medications were reviewed in detail Lab and Diagnostics Result Diagram: 11/12/16 0734 11/12/16 0734 X-Rays, CTs and MRIs CT BRAIN WITHOUT CONTRAST IMPRESSION: 1. No acute intracranial abnormality. 2. Low density white matter lesions bilaterally, consistent with multiple sclerosis. Dictated by: Noble Ramires M.D. on 11/10/2016 at 9:45 Approved by: Noble Ramires M.D. on 11/10/2016 at 9:48 Assessment & Plan Dunia Jerez is a 50 year old female with Multiple sclerosis, psoriasis, chronic lymphedema, and a chronic left leg wound presents to [facility] emergency department with left leg pain. Admitted for cellulitis. 1. Acute left leg Strep cellulitis. Present on admission. Active. - Patient has psoriasis and dermatitis which may cause break in the skin to allow portal of entry. Patient may also be immunocompromised. It is unclear if there are any underlying abscess at this time - Vancomycin and Zosyn IV for empiric antibiotics initially started. Vancomycin discontinued 11/10. - Wound cultured positive on 11/12 for Pseudomonas and MRSA. This is likely a polymicrobial cellulitis. IV Zosyn effective. - Streptozyme positive - 763 - Ultrasound of the left lower extremity - no DVT, although enlarged groin lymph node noted - Wound care consulted. Appreciate time and expertise. - Infectious disease consulted. Appreciate time and expertise. - ID recommends IV Zosyn until Monday then d/c on Amoxicillin. Continue oral Fluzonazole for 3 days total, plan to d/c it on 11/13 - PO Percocet for pain control. -CRP improving -IVF decreased to 50mls/hr due to some PO intake tolerated. D/c when adequate PO intake. 2. Acute Pseudomonas UTI, poa -As demonstrated on UA culture -Luckily sensitive to IV zosyn also. 3. Acute Encephalopathy. Present on admission. Resolving - Unknown baseline. Patient alert and oriented this morning and able to answer questions appropriately. She does appear lethargic still - Have not been able to contact family at this time. We will continue to try. - CT head without contrast negative for any acute process. - Urine tox screen positive for amphetamine and patient reports history of Meth usage. - PT recommends SNF placement. 4. Pressure ulcer of left hip. Present on admission. Active. - Patient is unsure of when she developed ulcer. - Eschar removed and new dressing applied. - Wound care consulted. Appreciate time and expertise. 5. Multiple Sclerosis. Present on admission. Chronic. - Patient states she is not currently on any treatment and has failed multiple in the past. Dr. Alvarado is her neurologist. - Patient lives in an and states it is difficult to get around with her walker. Living situation not ideal possibly contributing to her wounds. - Continue Baclofen for spasticity. - meat counter worker consulted to address any needs at home. Patient denies any conflicts at home and reports she feels safe. - Dr. Calvert's office called and note patient has not been seen in 2 years and is not on any DMARDs currently. - PO Ativan prn anxiety or muscle spasms. 6. Psoriasis. Present on admission. Chronic. - Continue to monitor. 7. Likely yeast infection of buttock and groin. Present on admission. Active. - Likely secondary to bowel and bladder incontinence. - Cordero catheter placed to help decrease irritation 2/ - Fluconazole started 11/10. - Acetaminophen as needed for mild pain/fever/headache - Bowel regimen as needed - Antiemetic as needed Disposition: Plan for discharge on Monday if medically stable. Pain Evaluation: Adequate Pain Control VTE Prophylaxis: Sub-Q Heparin (Unfractionated) VTE Mechanical Devices: Intermittant Pneumatic CD Resuscitation Status: CPR: Attempt Resuscitation Attending Statement I have seen and evaluated Mrs. Jerez at her bedside, in addition to directly supervising the care provided by the resident physician. I agree with the above documentation which matches my exam findings, plans and assessment. Eligio Camilo M.D., DO Nov 12, 2016 11:49 Brenda Huitron MD Nov 12, 2016 12:02
--- NOTE | 2016-11-12 12:23 | NUR ---
NUTRITION ASSESSMENT: ASSESS:50 YO female admitted with left leg pain related to acute on chronic left leg cellulitis. Per Senior Specialist, there is a 6 cm L x 3.5 cm W ulcer at her left hip that is covered with a leathery chawla eschar, removed to assess underlying tissue which appears to be necrotic fat, not infected at this time and does not tunnel. Wound debrided 11/10 and 11/11. left lower leg appears related to venous hypertension and lymphedema with chawla staining and edema, circumferentially covered with a stasis dermatitis and excoriation. Speech Therapy has downgraded her diet to pureed with thin liquids, related to lethargy and weakness. There has been no recent weight loss, per admit history. PMHx:Psoriasis, multiple sclerosis diagnosed in 2003, followed by Dr Calvert at [facility] clinic, lymphedema, chronic wounds, nicotine dependency. DIET:Pureed, thin liquids. PO intake 100% trays. LABS: Reviewed. Cr 0.56, Glu 103, A1c 6.0, ca 7.8, CRP 6.8, Alb 2.4. MEDICATIONS: Reviewed. NUTRITION FOCUSED PHYSICAL ASSESSMENT: GI symptoms / stool: No stool reported.John: 16. Skin Integrity: See assessment above. ANTHROPOMETRICS: Current Wt: 65.91 kgBMI: 24.0 kg/m2.Admit weight: 65.91 kg. IBW: 56.8 kg (116.0% IBW) ESTIMATED NEEDS (CHRONIC WOUNDS): Calories: 1977 - 2307 kcal (30 - 35 kcal / kg BW) Protein: 119 - 132 g protein (1.8 - 2.0 g/ kg BW) NUTRITION DIAGNOSIS: 1)Increased nutrient needs related to acute on chronic wound issues, as evidenced by regular follow-up at the [facility] on an outpatient basis. INTERVENTION: 1) Will add Ensure breakfast and lunch trays, Magic Cup at dinner. MONITOR/EVALUATE: Diet / supplement tolerance, PO intake, labs, GI/nutrition status. Follow up per moderate nutrition risk guidelines.
[2016-11-12] MEDS: Senna-Docusate 8.6-50 mg Tablet PO SCH ×2 (12:30→20:44)
--- NOTE | 2016-11-12 15:50 | NUR ---
Disregard AD intervention. Documented on wrong person. ASHELY Toro Addendum: 11/12/16 at 1551 by DERREK SANCHEZ Amended: Links added.
--- NOTE | 2016-11-12 16:26 | NUR ---
Social Work: Continued d/c planning Data: ENROLLMENT NURSE met with pt and discussed d/c planning. Pt was very tearful when talking about going to a SNF but states she will talk with her about their choice and ENROLLMENT NURSE will check in tomorrow regarding decision. ENROLLMENT NURSE Will continue to follow. ASHELY Toro
--- NOTE | 2016-11-12 17:40 | PROG NOTE ---
[address] [address] PROGRESS NOTE PATIENT: DARLENE DIAZ : 1965 MR#: [id number] ADMIT: 11/10/2016 JOB ID: [id number] DATE: 11/12/2016 INFECTIOUS DISEASE FOLLOWUP NOTE: REASON FOR FOLLOWUP: Severe left lower extremity cellulitis which is primarily streptococcal. INTERVAL HISTORY: The patient reports there has been some slow improvement in the left lower extremity swelling redness and pain. She denies additional fevers or chills. She states she is in no discomfort at this afternoon and denies cough, shortness of breath, or abdominal pain. PHYSICAL EXAMINATION: The patient is afebrile now, though she was febrile to 38.2 around midnight; temp now 36.5. Pulse 101, respiratory rate 18, blood pressure 144/88, saturating 94% on room air. Examination of the oral cavity is unremarkable. Lungs fairly clear bilaterally. Abdomen soft and nontender. The patient's left lower extremity was unwrapped from the extensive dressing that was present. There is some skin loss along the posterior medial and lateral calf with some denuded skin, but the extremely cellulitic area around that left lower extremity is much improved. There is no significant warmth and no additional bullae or skin breakdown have developed. LABORATORIES: Include white count which has dropped from 16,000 to 9000, normal diff. Creatinine 0.56. LFTs normal. CRP has dropped to 6.8 from 8.6. Procalcitonin is 0.6. Streptozyme strongly positive 763. Additional micro data includes the leg now growing a light growth of Pseudomonas and a light growth of Staph aureus. Urine also grew this Pseudomonas. The sensitivities on the staph are not available yet, but the Pseudomonas was quite sensitive to all standard agents. IMPRESSION: This is a woman admitted with severe left lower extremity cellulitis which is primarily group a strep as indicated by the very high streptozyme level. It may, in fact, be entirely a streptococcal infection but a swab taken is growing a light growth of both Staph aureus and Pseudomonas. Urine also grew Pseudomonas but the patient had no urinary symptoms and no pyuria, so I doubt that is of much significance. RECOMMENDATIONS: 1. I would continue with Zosyn on through the weekend, as it is actually a pretty good drug for the group A strep which we know is in the leg, though will also cover what is probably an MSSA in the leg as well as the Pseudomonas. Whether the Staph aureus and Pseudomonas are colonizers or infecting organisms is difficult to tell but we are seeing improvement. 2. I would continue with the fluconazole for a few days to treat what was a very severe candidal processes involving the buttocks and groin. This rash is seen to be improving. 3. Will continue to watch closely, but it is likely the patient can go home in a day or two on oral antibiotics if this good progress continues.
[2016-11-13] MEDS: Piperacillin-Tazo 3.375 Gm Inj 3.375 GM in Dextrose 5% Minibag Plus 50 ML IV SCH ×3 (00:59→18:26)
[2016-11-13] MEDS: Heparin 5,000 Unit/mL Inj SUBQ SCH ×3 (01:00→18:24)
[2016-11-13] MEDS: oxyCODONE-Acetamin 5-325 mg Tablet PO PRN ×5 (01:02→22:50)
[2016-11-13 05:10] VITALS: BP 113/64; PULSE 113; RESP 20; O2SAT 94
[2016-11-13 06:33] LABS: BASOPHILS % (AUTO) 0.2 % (0-3); EOSINOPHILS % (AUTO) 3.2 % (0-5); Mean Corpuscular Hemoglobin 27.5 pg (27.0-35.0); Mean Corpuscular Volume 86.4 fL (81-100); NEUTROPHILS % (AUTO) 74.3 % (40-74); Platelet Count 369 bil/L (150-400)
--- NOTE | 2016-11-13 06:35 | NUR ---
O2/Pain Patient getting q4 Percocet 2 tabs for back/left shoulder pain. Takes meds whole with applesauce well. She had c/o pain 04/17 this shift. Patient running temp around 101 this shift. She was desaturating to mid 80's - low 90's on RA so placed her on 1L NC to maintain oxygen sats.
[2016-11-13 06:58] LABS: Magnesium 1.8 mg/dL (1.6-2.6)
[2016-11-13] MEDS: Senna-Docusate 8.6-50 mg Tablet PO SCH ×2 (08:29→22:49)
--- NOTE | 2016-11-13 14:32 | NUR ---
GI No BM noted since prior to admit, pt confirmed that she would like to have a BM today. Stool softeners and prune juice admin. Activity limited to turning Q2. PO intake adequate. Bowel regemine in place at this time and awaiting BM at this time. Addendum: 11/13/16 at 1935 by YUSUF WHYTE RN No BM produced this shift despite oral attempts. Small amount of pink mucus expelled from rectum. Provider notified.
[2016-11-13 18:07] VITALS: BP 144/79; PULSE 105; RESP 18; O2SAT 93
[2016-11-13] MEDS: 0.9% Sodium Chloride 1,000 ML IV SCH (18:18)
--- NOTE | 2016-11-13 19:47 | PCM.PNMED ---
Subjective Date of Service Nov 13, 2016 Subjective Overnight, patient mild fever, continues to be tachycardic Patient with teary eyes today, in pain. Note patient has not received pain medication for over 7 hour. Patient states that "it hurts everywhere" Exam Vital Signs Vital Sign - Last Date Time Temp Pulse Resp B/P Pulse Ox O2 Delivery O2 Flow Rate FiO2 11/13/16 18:07 37.2 105 18 144/79 93 Room Air Intake and Output 11/12/16 11/12/16 11/13/16 Cumulative From/Thru 15:00 23:00 07:00 11/09/16 23:52 - 11/12/16 18:58 Intake Total 708 ml 4639 ml Output Total 850 ml 3690 ml Balance -142 ml 949 ml Intake Oral 708 ml 1416 ml IV Total 3223 ml Output Urine Total 850 ml 3690 ml # Bowel Movements 0 0 Exam General: Alert but mildly somnolent, Oriented X3, Cooperative, No acute distress Eyes: PERRLA, Scleral Anicteric Mouth: Poor dentition, mucous membranes dry. Neck: Supple, mildly tender to palpation on right side Chest & Lungs: Clear to auscultation & percussion, No adventitious breath sounds, no crackles, no wheeze Cardiovascular: Normal S1, Normal S2, No Murmurs/Rubs/Gallops, Regular Rate/ Rhythm Pulses: Radial (present and equal), Dorsalis Pedi (present and equal) Abdomen: Soft, Non-tender, Non-distended, Normoactive bowel tones. Musculoskeletal: Unremarkable. Normal range of motion, no swollen or erythematous joints. Tenderness with range of motion of left shoulder. Mild tenderness of right neck. Extremities: Bilateral Hemosiderin deposited of the lower leg, left lower leg with wounds, however nonerythematous, no pus expression. Normal temperature Skin: Left hip pressure ulcer covered in dressing. Confluent erythematous region on her buttocks likely due to irritation from urine - improving. Neurological: Grossly neurologically intact. No focal weakness Lab and Diagnostics Result Diagram: 11/13/1615 11/13/16614 X-Rays, CTs and MRIs CT BRAIN WITHOUT CONTRAST IMPRESSION: 1. No acute intracranial abnormality. 2. Low density white matter lesions bilaterally, consistent with multiple sclerosis. Dictated by: Noble Ramires M.D. on 11/10/2016 at 9:45 Approved by: Noble Ramires M.D. on 11/10/2016 at 9:48 Assessment & Plan Dunia Jerez is a 50 year old female with Multiple sclerosis, psoriasis, chronic lymphedema, and a chronic left leg wound presents to [facility] emergency department with left leg pain. Admitted for cellulitis. 1. Acute left leg Strep cellulitis. Present on admission. Active. - Patient has psoriasis and dermatitis which may cause break in the skin to allow portal of entry. Patient may also be immunocompromised. It is unclear if there are any underlying abscess at this time - Vancomycin and Zosyn IV for empiric antibiotics initially started. Vancomycin discontinued 11/10. - Wound cultured positive on 11/12 for Pseudomonas and MRSA. This is likely a polymicrobial cellulitis. IV Zosyn effective. - Streptozyme positive - 763 - Ultrasound of the left lower extremity - no DVT, although enlarged groin lymph node noted - Wound care consulted. Appreciate time and expertise. - Infectious disease consulted. Appreciate time and expertise. - ID recommends IV Zosyn until Monday then d/c on Amoxicillin. Continue oral Fluzonazole for 3 days total, plan to d/c it on 11/13 - PO Percocet for pain control. -CRP improving -IVF decreased to 50mls/hr due to some PO intake tolerated. D/c when adequate PO intake. 2. Acute Pseudomonas UTI, poa -As demonstrated on UA culture -Luckily sensitive to IV zosyn also. 3. Acute Encephalopathy. Present on admission. Resolving - Unknown baseline. Patient alert and oriented this morning and able to answer questions appropriately. She does appear lethargic still - Have not been able to contact family at this time. We will continue to try. - CT head without contrast negative for any acute process. - Urine tox screen positive for amphetamine and patient reports history of Meth usage. - PT recommends SNF placement. 4. Pressure ulcer of left hip. Present on admission. Active. - Patient is unsure of when she developed ulcer. - Eschar removed and new dressing applied. - Wound care consulted. Appreciate time and expertise. 5. Multiple Sclerosis. Present on admission. Chronic. - Patient states she is not currently on any treatment and has failed multiple in the past. Dr. Alvarado is her neurologist. - Patient lives in an RV and states it is difficult to get around with her walker. Living situation not ideal possibly contributing to her wounds. - Continue Baclofen for spasticity. - ostrich farm worker consulted to address any needs at home. Patient denies any conflicts at home and reports she feels safe. - Dr. Calvert's office called and note patient has not been seen in 2 years and is not on any DMARDs currently. - PO Ativan prn anxiety or muscle spasms. 6. Psoriasis. Present on admission. Chronic. - Continue to monitor. 7. Likely yeast infection of buttock and groin. Present on admission. Active. - Likely secondary to bowel and bladder incontinence. - Cordero catheter placed to help decrease irritation 11/10 - Fluconazole started 11/10. - Acetaminophen as needed for mild pain/fever/headache - Bowel regimen as needed - Antiemetic as needed Disposition: Plan for discharge on Monday if medically stable. VTE Prophylaxis: Sub-Q Heparin (Unfractionated) VTE Mechanical Devices: Intermittant Pneumatic CD Resuscitation Status: CPR: Attempt Resuscitation Attending Statement I saw and examined Mrs. Jerez with Dr. Hernandez. My exam and plans are as described above. Sebastián Huitron MD [place],Miguel H DO Nov 13, 2016 19:47 Brenda Huitron MD Nov 13, 2016 20:49
[2016-11-13 21:56] VITALS: BP 129/75; PULSE 116; RESP 18; O2SAT 94
[2016-11-14] MEDS: Heparin 5,000 Unit/mL Inj SUBQ SCH ×3 (01:37→18:08)
[2016-11-14] MEDS: Piperacillin-Tazo 3.375 Gm Inj 3.375 GM in Dextrose 5% Minibag Plus 50 ML IV SCH ×3 (01:38→18:08)
[2016-11-14] MEDS: oxyCODONE-Acetamin 5-325 mg Tablet PO PRN ×4 (05:44→20:04)
[2016-11-14 06:09] VITALS: BP 145/91; PULSE 108; RESP 18; O2SAT 93
[2016-11-14 07:15] LABS: BASOPHILS % (AUTO) 0.3 % (0-3); EOSINOPHILS % (AUTO) 4.8 % (0-5); MONOCYTES % (AUTO) 10.2 % (4-12); Mean Corpuscular Hemoglobin 27.8 pg (27.0-35.0); Mean Corpuscular Volume 86.2 fL (81-100); NEUTROPHILS % (AUTO) 67.5 % (40-74); Platelet Count 340 bil/L (150-400)
[2016-11-14 07:33] LABS: Magnesium 1.9 mg/dL (1.6-2.6)
[2016-11-14] MEDS: Senna-Docusate 8.6-50 mg Tablet PO SCH ×2 (10:22→20:05)
[2016-11-14 11:16] VITALS: BP 119/73; PULSE 99; RESP 18; O2SAT 95
[2016-11-14] MEDS: 0.9% Sodium Chloride 1,000 ML IV SCH (12:50)
--- NOTE | 2016-11-14 16:08 | NUR ---
Wound Patient seen for wound care at bed side with nursing and MD present. Ulceration at left hip is unchanged dimensionally but continues to improve in terms of granulation tissue formation, this was redressed with hydrogel and adhesive foam dressing. Attention was then turned to patients left leg which continues to be erythematous and excoriated at the posterior calf region, decision made to apply Unna wrap to this leg today to help with edema control, adaptic over sensitive skin then abd pad and then unna wrap followed by fallon wrap loosely. Will recheck on this patient in 48 hours, will need wound center follow up on discharge from hospital.
--- NOTE | 2016-11-14 16:30 | NUR ---
Social Work-continued d/c planning: Data:EMR Reviewed. Pt is on day 4 of hospitalization for cellulitis per H&P. Pt is not medically stable. PT continues to recommend SNF, pt mod-max assist and recommending SNF. SW followed up with pt to discuss. Pt states she and her SO discussed and are agreeable. SW explained that due to pt's insurance, SNF placement may be challenging and if she progresses pt will have to return home. SW also explained SNF's in [place] will have to be explored, pt is agreeable. SW attempted to contact SO, no answer. SW asked UR specialist to send out referrals. SW will continue to follow. Assessment:PT who will need SNF> Plan:SNF's in [place] have been faxed. Due to pt's insurance, SNF placement may be challenging and pt may progress to return home. SW will continue to follow. ASHELY Ordonez
--- NOTE | 2016-11-14 17:05 | PROG NOTE ---
[address] [address] PROGRESS NOTE PATIENT: DARLENE DIAZ : 1965 MR#: [id number] ADMIT: 11/10/2016 JOB ID: [id number] DATE: 11/14/2016 REASON FOR FOLLOWUP: Left lower extremity streptococcal cellulitis with possible superinfection from MSSA and Pseudomonas aeruginosa as well as bacteriuria with Pseudomonas aeruginosa. INTERVAL HISTORY: Over the weekend, the patient's mood and affect have brightened considerably. This afternoon, she is laughing and joking. She tells me she is scarfing down all the food that is available. She denies fevers, chills, cough, shortness of breath, nausea, vomiting, or diarrhea. She notes that her left leg is steadily improving and that the rash around her bottom and genitals has also improved. PHYSICAL EXAMINATION: Reveals an afebrile woman who has had temperatures as high as 37.7 in last 24 hours, now 36.8. Her pulse is 99, respiratory rate 18, blood pressure 119/73, she is saturating well on room air. Patient's mental status is much improved. She is now bright and alert, oriented x3. Oral cavity negative. Lungs clear bilaterally. Cardiac tones regular rate and rhythm. Abdomen is soft, nontender. Her left hip wound that was sharply debrided by Wound Management has a dressing over it. The erythematous diffuse rash over her buttocks and her thighs and genitals has resolved with good hygiene and a short course of fluconazole. The left lower extremity cellulitis below the below the knee is also much improved. LABORATORIES: Include a white count which has dropped to 8700 with a normal diff, creatinine 0.59. LFTs normal. CRP is still high at 9.6, albumin 2.4. Urinalysis without white cells. Urine tox screen came back positive for amphetamines. ASO titer was extremely high at 763. The cultures of the blood turned out to be negative. The urine grew Pseudomonas aeruginosa which was sensitive to Cipro along with all other agents, but it is worth noting that the urinalysis itself had no white cells. A swab of the leg wound grew MSSA as well as the same Pseudomonas as was seen in the urine. No new imaging has been performed. IMPRESSION: This is an unfortunate woman with advanced multitude sclerosis who was admitted with severe left lower extremity cellulitis which I believe to be primarily due to group A strep as evidenced by its appearance as well as her very high ASO titer. There also may be some degree of superficial infection with Pseudomonas and/or MSSA but these could represent colonization as well. The urine had Pseudomonas in it, but the diagnosis here would be asymptomatic bacteriuria rather than urinary tract infection. She denies having any symptoms before admission and had no pyuria. RECOMMENDATIONS: 1. I would continue with Zosyn as long as she is here which will probably be a day or so. This drug has excellent coverage for group A strep, MSSA and Pseudomonas. 2. Once the patient is ready to go, which could be as early as tomorrow, I would switch her to oral amoxicillin in a dose of 1 g p.o. t.i.d. to be taken for about one more week for treatment of the severe left lower extremity cellulitis. 3. I would continue the fluconazole as long as she is here in the hospital, but I think it could be stopped at that time. 4. The patient's Cordero will probably need to be removed at some point, but there will have to be good mechanisms in place for her to be able to urinate without wetting herself and causing a recurrence of the rash that was so extensive around her buttocks and thighs when she came in.
[2016-11-14 17:38] VITALS: BP 124/77; PULSE 96; RESP 19; O2SAT 95
--- NOTE | 2016-11-14 18:38 | NUR ---
Activity Using 1-2 PA to BSC. Up to chair for meals, diet updated for assistive devices in AM. Used shower chair and provided full shower for pt. Pain is drastically reduced visibly with movement this shift compared to yesterday and pt reports the same. Dressings changed at that time prior to visit by wound care. Pt making needs know using soft touch call light and is anticipating a return to home at discharge.
--- NOTE | 2016-11-14 19:36 | PCM.PNMED ---
Subjective Date of Service Nov 14, 2016 Subjective 50-year-old female with multiple sclerosis psoriasis chronic lymphedema and chronic left leg venous stasis wound is being treated for cellulitis today is day 5 of Zosyn day 3 of fluconazole. She reports having joint pain this morning and is due for her pain medicine. She has no headache, fever, chills, abdominal pain. Exam Vital Signs Vital Sign - Last Date Time Temp Pulse Resp B/P Pulse Ox O2 Delivery O2 Flow Rate FiO2 11/14/16 06:09 37.7 108 18 145/91 93 Room Air Intake and Output 11/13/16 11/13/16 11/14/16 Cumulative From/Thru 15:00 23:00 07:00 11/09/16 23:52 - 11/14/16 05:52 Intake Total 1683 ml 1437 ml 983 ml 8742 ml Output Total 1750 ml 2700 ml 2100 ml 64792 ml Balance -67 ml -1263 ml -1117 ml -1498 ml Intake Oral 0 ml 820 ml 300 ml 2536 ml IV Total 1683 ml 617 ml 683 ml 6206 ml Output Urine Total 1750 ml 2700 ml 2100 ml 52160 ml # Bowel Movements 0 1 0 1 Exam General: No acute distress, well-developed, well-nourished HEENT: Normocephalic, atraumatic. External ears without defect. Pupils equal, round, and reactive to light and accommodation. Anicteric sclerae, moist conjunctivae, and no lid lag. Oropharynx with mildly dry mucosa. Neck: Supple with full range of motion. No jugular venous distension. Cardiovascular: Regular rate and rhythm with no murmurs, rubs, or gallops appreciated Pulmonary: Clear to auscultation bilaterally with no crackles, wheezes, or rhonchi. Normal respiratory effort with no use of accessory muscles. Abdomen: Bowel tones present, nontender. No hepatosplenomegaly or masses appreciated. Extremities: Left leg wrapped, right leg with scaling on distal half of lower leg. No clubbing, cyanosis, edema, or lymphadenopathy appreciated. Left leg was unwrapped with wound care, venous stasis primarily on posterior and lateral aspects of the left lower extremity, ample flaking of dried exudate over foot and ankle. Left hip wound covered with Mepilex dressing upon removal of dressing there is ulceration with hydrogel in wound bed surrounded by granulation tissue. Skin: Normal temperature, turgor, no ulcers or subcutaneous nodules appreciated on upper extremities and torso. Neurological: Cranial nerves grossly intact. Normal muscle strength, tone, and bulk. Psychiatric: Alert and oriented to person, place, and time. Lab and Diagnostics Result Diagram: 11/14/16 0618 11/13/16 0615 X-Rays, CTs and MRIs CT BRAIN WITHOUT CONTRAST IMPRESSION: 1. No acute intracranial abnormality. 2. Low density white matter lesions bilaterally, consistent with multiple sclerosis. Dictated by: Noble Ramires M.D. on 11/10/2016 at 9:45 Approved by: Noble Ramires M.D. on 11/10/2016 at 9:48 Assessment & Plan Dunia Jerez is a 50 year old female with Multiple sclerosis, psoriasis, chronic lymphedema, and a chronic left leg wound presents to [facility] emergency department with left leg pain. Admitted for cellulitis. 1. Acute left leg Strep cellulitis. Present on admission. Active. - Patient has psoriasis and dermatitis which may cause break in the skin to allow portal of entry. Patient may also be immunocompromised. - Vancomycin and Zosyn IV for empiric antibiotics initially started, continue Zosyn while inpatient. Vancomycin discontinued 11/10. - Wound cultured positive on 11/12 for Pseudomonas and MRSA. This is likely a polymicrobial cellulitis. IV Zosyn effective. - Streptozyme positive - 763 - Ultrasound of the left lower extremity - no DVT, although enlarged groin lymph node noted - Wound care consulted. Appreciate time and expertise. - Infectious disease consulted. Appreciate time and expertise. - ID recommends IV Zosyn while inpatient then d/c on Amoxicillin. Continue oral Fluzonazole while inpatient and discontinue upon discharge - PO Percocet for pain control. - CRP improving - IVF decreased to 50mls/hr due to some PO intake tolerated. D/c when adequate PO intake. 2. Acute Pseudomonas UTI, POA -As demonstrated on UA culture -Luckily sensitive to IV zosyn also. 3. Acute Encephalopathy. Present on admission. Resolving - Unknown baseline. Patient alert and oriented this morning and able to answer questions appropriately. She does appear slow to react however more reactive in afternoon - Have not been able to contact family at this time. Pt stated would come in this afternoon however he was not present upon revisit. - CT head without contrast negative for any acute process. - Urine tox screen positive for amphetamine and patient reports history of Meth usage. - PT recommends SNF placement. 4. Pressure ulcer of left hip. Present on admission. Active. - Patient is unsure of when she developed ulcer. - Eschar removed and new dressing applied. - Wound care consulted. Appreciate time and expertise. 5. Multiple Sclerosis. Present on admission. Chronic. - Patient states she is not currently on any treatment and has failed multiple in the past. Dr. Alvarado is her neurologist. - Patient lives in an and states it is difficult to get around with her walker. Living situation not ideal possibly contributing to her wounds. - Continue Baclofen for spasticity. - blade worker consulted to address any needs at home. Patient denies any conflicts at home and reports she feels safe. - Dr. Calvert's office called and note patient has not been seen in 2 years and is not on any DMARDs currently. - PO Ativan prn anxiety or muscle spasms. 6. Psoriasis. Present on admission. Chronic. - Continue to monitor. 7. Likely yeast infection of buttock and groin. Present on admission. Active. - Likely secondary to bowel and bladder incontinence. - Cordero catheter placed to help decrease irritation 2/2 - Fluconazole started 2/2. - Acetaminophen as needed for mild pain/fever/headache - Bowel regimen as needed - Antiemetic as needed Disposition: Plan for discharge tomorrow if medically stable. Pain Evaluation: Adequate Pain Control VTE Prophylaxis: Sub-Q Heparin (Unfractionated) VTE Mechanical Devices: Intermittant Pneumatic CD Resuscitation Status: CPR: Attempt Resuscitation Time spent 25 minutes Attending Statement I have seen and evaluated patient at bedside in addition to directly supervising care provided by resident physician. I agree with above documentation. PT medical condition is improving, but she remains significantly impaired in regard to physical mobility. Pt finally warming it idea of SNF, which seems ideal disposition DC pending placement. TONY JOSHI DO Nov 14, 2016 07:38 Andrew Soto DO Nov 14, 2016 22:33
[2016-11-14 20:25] VITALS: BP 120/75; PULSE 97; RESP 18; O2SAT 97
--- NOTE | 2016-11-15 | NUR ---
No BM: Pt did sit up on the BSC for quite a while at bedtime, no results. Did pass a lot of flatus. Has had prune juice, miralax and senna.
[2016-11-15] MEDS: Heparin 5,000 Unit/mL Inj SUBQ SCH ×3 (01:52→17:22)
[2016-11-15] MEDS: Piperacillin-Tazo 3.375 Gm Inj 3.375 GM in Dextrose 5% Minibag Plus 50 ML IV SCH ×3 (01:57→17:22)
[2016-11-15] MEDS: oxyCODONE-Acetamin 5-325 mg Tablet PO PRN ×2 (03:22→22:30)
--- NOTE | 2016-11-15 04:00 | NUR ---
Transfer: Pt transferred to [facility] room 1030. Belongings sent with pt. Prior to transfer, pt was able to sleep for a good portion of the night. Report given to [facility] RN.
--- NOTE | 2016-11-15 04:55 | NUR ---
[place] [facility] [place] phone report from Georgina BAHENA at 0313, pt arrived to floor at 0336 am via hosp.bed, accompanied by 2 RN's, drowsy easily arousable to verbal stimulation, vitals taken, stable, oriented pt inclusion internship light use, noted IV on L arm running IVF and IV ABO, patent, skin check done with Rosemarie BAHENA, noted mepilex dressing on L outer buttocks, L Leg with bandage wrap wound dressings by wound care team per hand off report, noted F16 sands draining copious amounts of nuha urine, pt on special p500 bed, q2 turns, will continue to monitor. Addendum: 11/15/16 at 0640 by AYDIN IGNACIO RN Transfer from [facility] received phone report from Georgina BAHENA at 0313, pt arrived to floor at 0336 am via hosp.bed, accompanied by 2 RN's, drowsy easily arousable to verbal stimulation, vitals taken, stable, oriented pt inclusion internship light use, noted IV on L arm running IVF and IV ABO, patent, skin check done with Paulina BAHENA, noted mepilex dressing on L outer buttocks, L Leg with bandage wrap wound dressings by wound care team per hand off report, noted F16 sands draining copious amounts of nuha urine, pt on special p500 bed, q2 turns, will continue to monitor.
[2016-11-15 05:29] VITALS: BP 122/72; PULSE 67; RESP 18; O2SAT 94
[2016-11-15 05:51] VITALS: BP 139/74; PULSE 107; RESP 15; O2SAT 98
[2016-11-15 09:06] LABS: BASOPHILS % (AUTO) 0.3 % (0-3); EOSINOPHILS % (AUTO) 5.2 % (0-5); MONOCYTES % (AUTO) 9.6 % (4-12); Mean Corpuscular Hemoglobin 27.7 pg (27.0-35.0); Mean Corpuscular Volume 86.6 fL (81-100); NEUTROPHILS % (AUTO) 67.4 % (40-74); Platelet Count 385 bil/L (150-400)
[2016-11-15] MEDS: Senna-Docusate 8.6-50 mg Tablet PO SCH ×2 (09:17→21:43)
--- NOTE | 2016-11-15 11:38 | NUR ---
Faxed referral to [facility], [facility], [facility], [facility] all of these are listed on the contract sheet from [email or web address]. Updated [employer] Addendum: 11/15/16 at 1603 by JOSSIE TANNER All facilities have declined patient or have no bed/ no contract. Patient is slowly progressing per PT and patient is [place]. Also patient does have for 01/05 care at base as well. Updated [employer] and recommended expedited [facility]ANA referral along with Home Health services. Also discussed this case with [employer] supervisor assembly room. Updated [employer]
[2016-11-15] MEDS: 0.9% Sodium Chloride 1,000 ML IV SCH (12:23)
--- NOTE | 2016-11-15 12:56 | NUR ---
Social Work readiness for Discharge: Plan is SNF placement pending accepting facility and insurance auth. [facility] and [facility]. [facility] who states that he to review referral to determine if insurance accepted. SW to follow. PLAN: SNF, pending acceptance Harjit LUND
[2016-11-15 14:37] VITALS: BP 126/78; PULSE 100; RESP 18; O2SAT 99
--- NOTE | 2016-11-15 15:19 | PROG NOTE ---
[address] [address] PROGRESS NOTE PATIENT: DARLENE DIAZ : 1965 MR#: [id number] ADMIT: 11/10/2016 JOB ID: [id number] DATE: 11/15/2016 INFECTIOUS DISEASE FOLLOWUP NOTE: REASON FOR FOLLOWUP: Severe left lower extremity cellulitis. INTERVAL HISTORY: Overnight the patient reports she has been fairly stable. She denies fevers or chills. No shortness of breath or GI symptoms. She notes that her leg is gradually improving and less painful. OBJECTIVE: Temperature max the past 24 hours 37.7, pulse 100, respiratory rate 18, blood pressure 126/70. She is saturating well on room air. Examination of the mental status reveals she is mentally clear today and oriented x3. Oral cavity negative. Lungs clear. Abdomen soft and nontender. The erythematous rash around the buttocks and genitals has almost completely resolved at this point with the fluconazole and keeping the area dry through the use of a Cordero catheter. The left lower extremity was carefully unwrapped and examined with the aid of the nurse. The circumferential cellulitis and erythema around the left lower extremity below the knee has improved considerably and it is not nearly as angry as well, though there is still clearly a great deal of involved soft tissue there. The area is much less tender and there is no weeping, bullae, purulence, or smell. LABORATORIES: Include white blood count of 10,300, platelet count 385, creatinine 0.54. ALT has bumped from 15 to 39 and alk phos has bumped in the past few ays. From 71 to 174. CRP was last done two days ago and was 9.6. Streptozyme was strongly positive at over 700. Culture of the leg from a superficial swab grew Pseudomonas aeruginosa and MSSA, both of which were likely primarily colonizing organisms. IMAGING: None new has been done. IMPRESSION: This patient is much improved over when she was admitted with severe left lower extremity cellulitis. I believe that cellulitis was primarily group A strep based on the very high ASO titer and the classic streptococcal appearance. There may also be some superficial infection with either Pseudomonas or MSSA, but I think these are likely colonizers. Urine had some Pseudomonas in it but the patient was asymptomatic and did not have significant pyuria. RECOMMENDATIONS: 1. Continue with Zosyn while the patient is here in the hospital. 2. Upon discharge, I would switch to amoxicillin 1 g t.i.d. for about one more week. 3. The fluconazole she is receiving here in the hospital will be an adequate course and can be stopped when she goes home. 4. The Cordero will need to come out at some point, but there needs to be a plan to keep the patient dry after she urinates, either with frequent changes of diapers or some other plan, but will need to keep her buttock and genital area dry or she will develop more of the painful erythema, diaper rash, and lesions which we saw earlier.
[2016-11-15] MEDS ORDERED: Magnesium Hydroxide 355 mL Oral Suspension PO PRN (17:05)
--- NOTE | 2016-11-15 18:38 | PCM.PNMED ---
Subjective Date of Service Nov 15, 2016 Subjective Patient denied any complaints of chest pain, dyspnea, nausea or vomiting to me. However nursing staff tell me that she has serious issues with Very hard stools that essentially need to be dug out, and that this is causing her a great deal of discomfort. Exam Vital Signs Vital Sign - Last Date Time Temp Pulse Resp B/P Pulse Ox O2 Delivery O2 Flow Rate FiO2 11/15/16 14:37 36.7 100 18 126/78 99 Room Air Intake and Output 11/14/16 11/14/16 11/15/16 Cumulative From/Thru 15:00 23:00 07:00 11/09/16 23:52 - 11/15/16 05:51 Intake Total 2270 ml 0 ml 52887 ml Output Total 2850 ml 2350 ml 11036 ml Balance -580 ml -2350 ml -4428 ml Intake Oral 1970 ml 0 ml 4506 ml IV Total 300 ml 6506 ml Output Urine Total 2850 ml 2350 ml 83933 ml # Bowel Movements 0 1 Exam Gen.- A+ O 3 no apparent distress. Eyes- open conjunctiva clear, pupils equal nonicteric Mouth- oral mucosa moist, no exudate ENT- ears normal, nose normal Neck- supple/trach midline CVS-normal rate Lungs-normal rate no evidence of respiratory distress GI-generous Musc- moving 4 no obvious deformity Neuro- cranial nerves II through XII intact to gross examination, nonfocal Skin- warm and dry, Psych- pleasant and appropriate, Both patient's legs have circumferential stasis dermatitis and there is also erythema is much worse on the left than the right. This is reportedly improved over the last couple days. It is up to at least the mid calf. And there is edema. Lab and Diagnostics Result Diagram: 11/15/16 0855 11/15/16 0855 X-Rays, CTs and MRIs CT BRAIN 1. No acute intracranial abnormality. 2. Low density white matter lesions bilaterally, consistent with multiple sclerosis. Approved by: Noble Ramires M.D. on 11/10/2016 at 9:48 Assessment & Plan Dunia Jerez is a 50 year old female admit 11/10 for cellulitis. [place] [facility] [place] 5 days in the hospital. She has pretty much stable for discharge back to her living environment which is probably suboptimal for her. Recommendation from ID/Dr. Cuevas (thank you) amoxicillin 1 g TID -11/25. 11/15 patie nt being discharged 11/16. Constipation-patient receiving mineral oil enemas and Dulcolax suppositories will try to disimpact her prior to discharge 11/16. Acute left leg Strep cellulitis. Present on admission. Active. - Patient has psoriasis and dermatitis which may cause break in the skin to allow portal of entry. Patient may also be immunocompromised. - Vancomycin and Zosyn IV for empiric antibiotics initially started, continue Zosyn while inpatient. Vancomycin discontinued 11/10. - Wound cultured positive on 11/12 for Pseudomonas and MRSA. This is likely a polymicrobial cellulitis. IV Zosyn effective. - Streptozyme positive - 763 - Ultrasound of the left lower extremity - no DVT, although enlarged groin lymph node noted - Wound care consulted. Appreciate time and expertise. - Infectious disease consulted. Appreciate time and expertise. - ID recommends IV Zosyn while inpatient then d/c on Amoxicillin. Continue oral Fluzonazole while inpatient and discontinue upon discharge - PO Percocet for pain control. - CRP improving - IVF decreased to 50mls/hr due to some PO intake tolerated. D/c when adequate PO intake. Acute Pseudomonas UTI, POA -As demonstrated on UA culture -Luckily sensitive to IV zosyn also. Acute Encephalopathy. Present on admission. Resolving - Unknown baseline. Patient alert and oriented this morning and able to answer questions appropriately. She does appear slow to react however more reactive in afternoon - Have not been able to contact family at this time. Pt stated would come in this afternoon however he was not present upon revisit. - CT head without contrast negative for any acute process. - Urine tox screen positive for amphetamine and patient reports history of Meth usage. - PT recommends SNF placement. Pressure ulcer of left hip. Present on admission. Active. - Patient is unsure of when she developed ulcer. - Eschar removed and new dressing applied. - Wound care consulted. Appreciate time and expertise. Multiple Sclerosis. Present on admission. Chronic. - Patient states she is not currently on any treatment and has failed multiple in the past. Dr. Alvarado is her neurologist. - Patient lives in an and states it is difficult to get around with her walker. Living situation not ideal possibly contributing to her wounds. - Continue Baclofen for spasticity. - clothing worker consulted to address any needs at home. Patient denies any conflicts at home and reports she feels safe. - Dr. Calvert's office called and note patient has not been seen in 2 years and is not on any DMARDs currently. - PO Ativan prn anxiety or muscle spasms. Psoriasis. Present on admission. Chronic. - Continue to monitor. Likely yeast infection of buttock and groin. Present on admission. Active. - Likely secondary to bowel and bladder incontinence. - Cordero catheter placed to help decrease irritation / - Fluconazole started 11/10. Acetaminophen as needed for mild pain/fever/headache - Bowel regimen as needed - Antiemetic as needed Disposition: Plan for discharge tomorrow if medically stable. First time meeting medically complex patient. 11/15. VTE Prophylaxis: Sub-Q Heparin (Unfractionated) VTE Mechanical Devices: Intermittant Pneumatic CD Resuscitation Status: CPR: Attempt Resuscitation Dez Moreno MD Nov 15, 2016 18:38
--- NOTE | 2016-11-15 19:30 | NUR ---
BM Patient had BM this shift. BM compacted. Suppository given. Mineral enema may be given to help relive compaction. Call light and tray table within reach. Will continue to monitor patient hourly.
[2016-11-15 20:37] VITALS: BP 117/66; PULSE 107; RESP 16; O2SAT 93
[2016-11-16] MEDS: Piperacillin-Tazo 3.375 Gm Inj 3.375 GM in Dextrose 5% Minibag Plus 50 ML IV SCH ×2 (01:03→08:52)
[2016-11-16] MEDS: Heparin 5,000 Unit/mL Inj SUBQ SCH ×2 (01:03→08:53)
--- NOTE | 2016-11-16 04:29 | NUR ---
Dressing/BM New dressing applied with ABD, kerlix and fallon wrap to left leg, as it was open to air upon assessment. Pt complaining of pain to legs, given 2 tab of Percocet, no further complaints from pt. Pt incontinent of medium, hard stool x1. Repositioning pt q2 hrs, pt very resistant to turns. Pt using soft call light. Continue to monitor.
[2016-11-16 05:54] VITALS: BP 118/66; PULSE 96; RESP 18; O2SAT 95
[2016-11-16] MEDS: Senna-Docusate 8.6-50 mg Tablet PO SCH (08:52)
[2016-11-16] MEDS: 0.9% Sodium Chloride 1,000 ML IV SCH (09:09)
--- NOTE | 2016-11-16 09:30 | PCM.DIMED ---
Discharge Instructions Date of Service Nov 16, 2016 Dates of Hospitalization Nov 10, 2016 at 03:08 Discharge Diagnosis Discharge Diagnosis Strep cellulitis Diet No restrictions Activity No restrictions Call your provider Fever or Chills, Excessive diarrhea Patient Instructions Follow-up Provider: [facility] Follow-up with PCP in: Other (need follow-up for wound care staying dry she might need a Cordero catheter however feeling compliance is an issue) Attending's Statement You need to take better care of her skin around your private parts so that does not break down. You cannot be wet like you are. You also need to have regular bowel movements this will also help with urinary issues. Dez Moreno MD Nov 16, 2016 09:30
--- NOTE | 2016-11-16 10:23 | NUR ---
Social Work Discharge: YUMIKO conducted discharge planning update. SW attempted to obtain SNF placement under payer source, but no accepting facility obtained at this time. Plan at this time is home with support and care and [facility] services. SW discussed discharge options with patient Kartik, . Per patient , patient accepted he care and assist with patient needs. Patient states being in agreement to [facility] services via any HHC provider. [facility]. SW completed face to face and provided to [facility] rep Hunter. Access provided. Patient aware of [facility] referral initiated on patient behalf. SW faxed referral to [facility]. Patient uses wheelchair at baseline. Patient states having no other identified discharge needs at this time and states that being able to care and manage patient needs PLAN: Home with and [facility] and new [facility] referral. No other anticipated discharge needs identified at this time. Harjit LUND
[2016-11-16] MEDS ORDERED: MINE133E RECTAL (10:30)
[2016-11-16] MEDS ORDERED: Bisacodyl RECTAL (10:30)
[2016-11-16] MEDS ORDERED: OXYC1TAB24 PO (10:30)
[2016-11-16] MEDS ORDERED: POLY17PO6 PO (10:30)
[2016-11-16] MEDS ORDERED: SENN-133 PO (10:30)
[2016-11-16] MEDS: oxyCODONE-Acetamin 5-325 mg Tablet PO PRN (11:54)
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
--- NOTE | 2016-11-16 14:53 | NUR ---
Faxed [facility] transport sheet to [facility] requested a 1530 sisal picker for patient to return home. Updated [employer] Addendum: 11/16/16 at 1504 by JOSSIE TANNER Canceled this transport due to no EMS transport into the ED and patient has not updated her address with [facility] and they will not transport her to the address we have here in our chart. Updated [employer]
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
--- NOTE | 2016-11-16 17:34 | NUR ---
Discharge Patient discharged home. IV DC'd and intact. Dressing CDI. Discharge instruction given to patient and patient's with no question. Oxycodone w/acetaminophen, Senna, MiraLAX, suppository RX sent with patient. gathered up all belongings. Patient has a Wound therapy appointment on Monday, November 23 at 1330. TRUCK GREASER escorted patient out via W/C.
[2017-03-12] MEDS ORDERED: METR500T PO (07:57)
[2017-03-12] MEDS ORDERED: GABA100C PO (07:57)
[2017-03-12] MEDS ORDERED: TRAM-14 PO (07:57)
== END 2016-11-16 17:30 | disposition home health service (06) | DRG 871 ==
LOC: SED 23:41 → MPC 11-10 03:08 → PCC 11-10 04:18 → MPC 11-10 16:56 → OSC 11-15 03:53
PROVIDERS: ADMIT Hospitalist; ATTEND Hospitalist
PROC: 0HDJXZZ Extraction of Left Upper Leg Skin, External Approach (ICD-10-PCS; principal; 2016-11-10)
DX: A41.9 Sepsis, unspecified organism (principal); G93.40 Encephalopathy, unspecified; B37.89 Other sites of candidiasis; L89.223 Pressure ulcer of left hip, stage 3; L03.116 Cellulitis of left lower limb; N39.0 Urinary tract infection, site not specified; L03.317 Cellulitis of buttock; B96.5 Pseudomonas (aeruginosa) (mallei) (pseudomallei) as the cause of diseases classified elsewhere; G35 Multiple sclerosis; F17.200 Nicotine dependence, unspecified, uncomplicated; L40.9 Psoriasis, unspecified; L22 Diaper dermatitis; K59.00 Constipation, unspecified; R32 Unspecified urinary incontinence; Z99.3 Dependence on wheelchair; Z79.82 Long term (current) use of aspirin

== ENCOUNTER 2016-12-07 21:55 | Emergency (ER) | payer OTHER ==
[~2016-12-07 21:55] MED LIST changes: +ASPI-973 PO; -Acetaminophen PO; +Bisacodyl RECTAL; -DOCU-41 PO; -HYDROcodone-APAP 5-325 PO; +IBUP100T7 PO; +MINE133E RECTAL; -NICO1PAT6 TOPICAL; +OXYC1TAB24 PO; +POLY17PO6 PO; +SENN-133 PO; -SERT20OR PO
[2016-12-07 22:07] VITALS: BP 113/73; PULSE 116; RESP 16; O2SAT 99
--- NOTE | 2016-12-07 22:38 | ED.REPORT ---
HPI-Rash / Abscess Date of Service Dec 07, 2016 ED Provider: Dr. Orlando Engel D.O. A 51 year old female with a medical history including MS, chronic left lower extremity wounds, degenerative disc disease, psoriasis, stasis dermatitis, and chronic lymphedema presents to the ED with bilateral leg pain onset four months ago, worsening three days ago. The patient also reports an ulcer to her left thigh, right eye discharge, and sore throat. She denies nausea, vomiting, fever , cough, or other symptoms. The patient was admitted to the hospital for six days on 11/10/16 for lower extremity Strep cellulitis. Her skin condition has improved since then. Nursing Notes Stated Complaint: PAIN IN JOINTS/LEGS Chief Complaint: General Complaint Nursing Notes Reviewed: Yes Allergies: Coded Allergies: sulfamethoxazole (Verified Allergy, Severe, Rash, 11/09/16) trimethoprim (Verified Allergy, Severe, 11/09/16) Scheduled Aspirin (Aspirin) 81 Mg Tablet 81 MG PO DAILY Scheduled PRN ([Bisacodyl]) 10 MG SUPP 10 MG RECTAL DAILY PRN PRN For Constipation Ibuprofen (Ibuprofen) 100 Mg Tablet 100 MG PO QID PRN PRN For Pain Mineral Oil (Mineral Oil Enema) 133 Ml Enema 133 ML RECTAL DAILY PRN PRN For Constipation Polyethylene Glycol 3350 (Miralax) 17 Gm Powd.pack 17-34 GM PO DAILY PRN PRN For Constipation Sennosides (Senna) 8.6 Mg Tablet 17.2-34.4 MG PO BID PRN PRN For Constipation oxyCODONE-Acetaminophen 5-325 mg (oxyCODONE-Acetaminophen 5-325 mg) 1 Each Tablet 1-2 TAB PO Q4H PRN PRN For Pain General Time Seen by MD: 22:37 Chief Complaint Other (Bilateral Leg pain ) Hx Obtained From: Patient Arrived By: Walk-in Onset Occurred: More than a week ago... (4 months) Symptom Duration: Since onset Location: : Lower extremity (Bilateral) Quality: Painful Severity: Current: Moderate Severity: Maximum: Moderate Associated with: Denies Fever, Denies Vomiting Pertinent Negative: Relieved by nothing Recent Healthcare: Recent doctor visit, Recent hospitalization Similar Sx Previous: Yes Past Medical History Past Medical History Notes: Followed by Dr. Alvarado, Neurologist Past Medical History Multiple Sclerosis diagnosed in 2003 Chronic LLE wound Degenerative Disc Disease Psoriasis Stasis Dermatitis Chronic lymphedema Past Surgical History Tubal ligation Family History Father had Pancreatic cancer, Diabetes Mother had Stroke, Lupus Smoking History Current Every Day Smoker, Unknown if Ever Smoker Social History Alcohol Use: "Social" Other Social History: Good social support, , Local resident Ambulatory Status Independent Review of Systems Review of Systems Note: + Left thigh ulcer Constitutional: Denies: Fever Eyes: Reports: Discharge right Ears / Nose / Throat: Reports: Sore throat Respiratory: Denies: Non-productive cough, Shortness of breath GI: Denies: Nausea, Vomiting Musculoskeletal: Reports: Extremity pain (Bilateral lower extremities) Complete sys rev & neg: except as marked. Physical Exam Initial Vital Signs Vital Signs (First) Date Time Temp Pulse Resp B/P Pulse Ox O2 Delivery O2 Flow Rate FiO2 12/07/16 22:07 37. 116 16 113/73 99 Room Air Initial VS: Reviewed Head / Eyes: Atraumatic, Normocephalic ENT: Conjunctiva normal, No scleral icterus Neck: Supple, Full range of motion Respiratory: Breath sounds normal, Clear to auscultation, No respiratory distress Cardiovascular: Regular rate & rhythm, Heart sounds normal Neurologic: Alert, Oriented, Nonfocal Psychiatric: Mood/affect normal, Behavior normal, Normal thought content General/Constitutional: Awake, Alert Skin: Warm, Dry Stage 1 ulcer with yellow exudate over left greater trochanter with surrounding erythema Erythema and skin breakdown across posterior lower extremities, bilaterally Interpretation & Diagnostics Lab Results Interpretation Result Diagram: 12/07/16230612/07/162306 Test 12/07/16 23:07 White Blood Count 11.1th/mm3 (3.8-10.1) Red Blood Count 3.72mil/mm3 (3.90-5.20) Hemoglobin 9.9g/dL (12.0-15.6) Hematocrit 31.7% (35.0-46.0) Mean Corpuscular Volume 85.2fL (81-100) Mean Corpuscular Hemoglobin 26.6pg (27.0-35.0) Mean Corpuscular Hemoglobin Concent 31.2% (32.0-37.0) Red Cell Distribution Width 15.7% (12.3-15.4) Platelet Count 426bil/L (150-400) Neutrophils (%) (Auto) 72.6% (40-74) Lymphocytes (%) (Auto) 16.3% (14-46) Monocytes (%) (Auto) 8.7% (4-12) Eosinophils (%) (Auto) 1.9% (0-5) Basophils (%) (Auto) 0.3% (0-3) D-Dimer 0.6mg/L (<0.50) Sodium Level 139mEq/L (134-144) Potassium Level 4.0mEq/L (3.5-5.2) Chloride Level 104mEq/L (97-108) Carbon Dioxide Level 24mmol/L (18-29) Blood Urea Nitrogen 15mg/dL (6-24) Creatinine 0.50mg/dL (0.57-1.00) Estimat Glomerular Filtration Rate 186mL/min (>59) Glucose Level 113mg/dL (60-99) Calcium Level 8.7mg/dL (8.5-10.1) Total Bilirubin 0.2mg/dL (0.0-1.2) Aspartate Amino Transf (AST/SGOT) 7U/L (0-50) Alanine Aminotransferase (ALT/SGPT) 13U/L (0-32) Alkaline Phosphatase 84U/L (25-150) C-Reactive Protein 0.9mg/dL (0.0-0.5) Total Protein 7.1g/dL (6.4-8.4) Albumin 3.3g/dL (3.4-5.0) Procalcitonin 0.02ng/mL (0.00-0.08) Hold Becerra Top Tube Received (Received) Re-Eval/Medical Decision Med Decision/Clinical Course It is very difficult for me to see if these wounds are infected or not. According to her the wound looks better than it did when she was discharged. She does not think it is infected however there is now little more erythema than there was yesterday. Overall she improves with wound care. She would like something for pain. I see she been prescribed oxycodone in the past. I will go ahead and do that. Her d-dimer has come down from her hospitalization and she had a negative ultrasound then. No signs of DVT now on with the d-dimer trending down DVT seems very unlikely. She agrees with this. I offered her hospital admission basically for her social care. She refuses. She feels comfortable with her . She feels comfortably living in the . She admits that she enjoys using methamphetamines. She plans on doing this. She does not wish to be in the hospital. She is awake alert oriented 4. She is sober and lucid. She shows no signs of hypoxia or sepsis. We had this discussion before she was medicated with any opiates. I will place her on a course of amoxicillin until she is seen at the wound care center in 2 days. Short course of oxycodone provided for pain. I did ask her to come back any time she changes her mind about being admitted. Source of Hx: Old records Re-Evaluation/Progress : Time of Eval: 02:00 Patient Status: Condition improved Re-Evaluation/Progress Note: Discussed with patient lab results, diagnosis, and plan for discharge. Follow-up and return to the ER instructions given. Patient agrees with plan for care and all questions were addressed. Counseled Regarding: Diagnosis, Lab results, Need for follow-up, When/why to return to ED Discharge & Departure Impression: Primary Impression: Cellulitis Site of cellulitis: buttock Qualified Code: L03.317 - Cellulitis of buttock Additional Impression: Psoriasis Disposition: Home Discharge Condition All VS Reviewed: Yes Condition: Improved Patient Instructions: Cellulitis (ED) Additional Instructions: Amoxicillin 3 times daily for 7 days. 1-2 Percocet every 6 hours as needed for pain. Keep her wound care evaluation on Monday. If she develops a fever her as any worsening symptoms or if the redness increases in size then come right back to the emergency department. No alcohol or acetaminophen use or driving while taking the Percocet. Also set up a follow-up with her primary care for recheck as well. Referrals: Artur López DO (PCP) Yana Attestation Portions of this note were transcribed by Valeria Alegria. I, Dr. Engel, personally performed the history, physical exam, and medical decision-making; I reviewed and confirmed the accuracy of the information in the transcribed note. Signed by: Yana Campos, 12/08/2016, 03:10 copies to: Artur López DO Beia, Todd P DO Dec 07, 2016 22:38 VALERIA ALEGRIA Dec 07, 2016 23:00
[2016-12-07] MEDS ORDERED: HYDROmorphone 0.5 mg/0.5 mL iSecure Syringe IVPUSH PRN (23:05)
[2016-12-07] MEDS ORDERED: Ondansetron 2 mg/mL 2 mL Inj IVPUSH PRN (23:05)
[2016-12-07 23:14] LABS: BASOPHILS % (AUTO) 0.3 % (0-3); EOSINOPHILS % (AUTO) 1.9 % (0-5); MONOCYTES % (AUTO) 8.7 % (4-12); Mean Corpuscular Hemoglobin 26.6 pg (27.0-35.0); Mean Corpuscular Volume 85.2 fL (81-100); NEUTROPHILS % (AUTO) 72.6 % (40-74); Platelet Count 426 bil/L (150-400)
[2016-12-08] MEDS ORDERED: cefTRIAXone Inj 2,000 MG in Dextrose 5% Minibag Plus 50 ML IV ONE (01:20)
[2016-12-08] MEDS ORDERED: _oxyCODONE/APAP 5-325 mg Tablet PO PRN (01:20)
[2016-12-08 02:32] VITALS: PULSE 102; RESP 18; O2SAT 97
[2017-03-12] MEDS ORDERED: TRAM-14 PO (07:57)
[2017-03-12] MEDS ORDERED: GABA100C PO (07:57)
[2017-03-12] MEDS ORDERED: METR500T PO (07:57)
== END 2016-12-08 02:33 | disposition home or self-care (01) ==
LOC: SED 21:55
DX: L03.317 Cellulitis of buttock (principal); L40.9 Psoriasis, unspecified; L97.111 Non-pressure chronic ulcer of right thigh limited to breakdown of skin; L97.121 Non-pressure chronic ulcer of left thigh limited to breakdown of skin; H57.8 Other specified disorders of eye and adnexa; J02.9 Acute pharyngitis, unspecified; G35 Multiple sclerosis; F17.200 Nicotine dependence, unspecified, uncomplicated; Z79.82 Long term (current) use of aspirin; Z88.1 Allergy status to other antibiotic agents
CPT/HCPCS: 36415; 80053; 82308; 85025; 85379; 86140; 96365; 96375; 99284; J0696; J1170; J2405

== ENCOUNTER 2017-01-20 14:05 | Inpatient (IN) | payer OTHER, MEDICAID ==
[~2017-01-20] VITALS: Ht 165.1 cm; Wt 62.9 kg
[2017-01-20] MEDS ORDERED: 0.9% Sodium Chloride 1,000 ML IV ONE (14:41)
[2017-01-20] MEDS ORDERED: Ondansetron 2 mg/mL 2 mL Inj IVPUSH PRN ×2 (14:45→21:35)
[2017-01-20] MEDS ORDERED: Ondansetron 2 mg/mL 2 mL Inj IVPUSH ONE (14:45)
[2017-01-20] MEDS ORDERED: HYDROmorphone 1 mg/mL Inj IVPUSH PRN (14:45)
[2017-01-20] MEDS ORDERED: Clindamycin Inj 900 MG in IV Premix 1 EACH IV ONE (14:45)
[2017-01-20] MEDS ORDERED: Meropenem Inj 2,000 MG in 0.9% Sodium Chloride 100 ML IV ONE (14:45)
[2017-01-20] MEDS ORDERED: Vancomycin Dose per Pharmacist XX ONE (14:45)
[2017-01-20] MEDS ORDERED: Vancomycin Inj 1,250 MG in 0.9% Sodium Chloride 250 ML IV ONE (14:55)
[2017-01-20 15:07] VITALS: BP 120/72; PULSE 104; RESP 18; O2SAT 99
--- NOTE | 2017-01-20 15:10 | ED.REPORT ---
HPI-General Illness Date of Service Jan 20, 2017 ED Provider: Javier Ha MD Pt is a 51 y/o female w/ a hx of MS, chronic wounds, psoriasis, stasis dermatitis, chronic lymphedema, presenting to the ED via EMS with her due to extensive wounds and lethargy. The patient was apparently hospitalized at [facility] and was discharged on January 10 or and was meant to start up appointments with wound care. Her was also hospitalized while she was hospitalized and the patient was apparently discharged before him and at home alone for a few days until he was discharged. He noticed skin breakdown that were significantly increased compared to before she left the hospital. Her back was apparently completely clear 3-4 days ago. She has also been experiencing decreased appetite and decreased level of consciousness. He reports no illicit drug use. An ambulance was called to their house yesterday but she refused transport. EMS finally convinced her to be taken to the ED today. Nurses noted her depends to be filled with diarrhea. She is alert, oriented, and afebrile upon arrival to the ED. History is limited due to patient condition. Inpatient H 12/26-. Wound culture grew psuedomonas and MRSA. Was encephalopathic and utox showed meth. Also had psudomonas UTI. Treated with Vanco and zosyn. It appears they had planned for her to go to a SNF, unclear why this did not happen. Nursing Notes Chief Complaint: General Complaint Nursing Notes Reviewed: Yes Allergies: Coded Allergies: sulfamethoxazole (Verified Allergy, Severe, Rash, 01/20/17) trimethoprim (Verified Allergy, Severe, 01/20/17) Scheduled Aspirin (Aspirin) 81 Mg Tablet 81 MG PO DAILY Scheduled PRN ([Bisacodyl]) 10 MG SUPP 10 MG RECTAL DAILY PRN PRN For Constipation Ibuprofen (Ibuprofen) 100 Mg Tablet 100 MG PO QID PRN PRN For Pain Mineral Oil (Mineral Oil Enema) 133 Ml Enema 133 ML RECTAL DAILY PRN PRN For Constipation Polyethylene Glycol 3350 (Miralax) 17 Gm Powd.pack 17-34 GM PO DAILY PRN PRN For Constipation Sennosides (Senna) 8.6 Mg Tablet 17.2-34.4 MG PO BID PRN PRN For Constipation oxyCODONE-Acetaminophen 5-325 mg (oxyCODONE-Acetaminophen 5-325 mg) 1 Each Tablet 1-2 TAB PO Q4H PRN PRN For Pain General Time Seen by MD: 15:04 Chief Complaint Other (wounds) Hx Obtained From: Patient, Spouse, EMS Unable to Obtain Hx: Patient condition Arrived By: Ambulance Sudden in Onset?: No Onset Occurred: Onset unknown Past Medical History Past Medical History Notes: Followed by Dr. Alvarado, Neurologist Past Medical History Multiple Sclerosis diagnosed in 2003 Chronic LLE wound Degenerative Disc Disease Psoriasis Stasis Dermatitis Chronic lymphedema Past Surgical History Tubal ligation Family History Father had Pancreatic cancer, Diabetes Mother had Stroke, Lupus Smoking History Current Every Day Smoker, Unknown if Ever Smoker Social History Alcohol Use: "Social" Drug Use: THC Other Social History: Good social support, , Local resident Ambulatory Status Independent Review of Systems +Multiple wounds Unable to Obtain ROS Patient condition Full Review of Systems Constitutional: Reports: Lethargy Physical Exam Vital Signs Vital Signs Date Time Temp Pulse Resp B/P Pulse Ox O2 Delivery O2 Flow Rate FiO2 01/20/17 18:58 111 23 127/70 95 Room Air 01/20/17 16:17 101 18 125/70 96 Room Air 01/20/17 15:07 36.8 104 18 120/72 99 Room Air Initial VS: Reviewed, Vital signs abnormal Head / Eyes: Atraumatic, Normocephalic, PERRL ENT: Mucous membranes moist, Conjunctiva normal, No scleral icterus Neck: Supple, Full range of motion Abdomen / GI: Soft, Non-tender General/Constitutional: Awake, Alert Lethargic Intermittently opens eyes to commands Respiratory / Chest: Atraumatic, Breath sounds NL, Breath sounds = bilat, No respiratory distress, No rales, No rhonchi, No wheezing, No retractions Cardiovascular: Regular rhythm, Heart sounds NL, No gallop, No murmurs, No rubs Heart Rate / Rhythm: Positive: Tachycardia Skin: Atraumatic Left lower leg wrapped in bandages. Images indicate venous stasis changes. Unstageable skin breakdown from sacrum perineum down to mid posterior thigh bilaterally. Neurologic: No motor deficits, No sensory deficits Lethargic Intermittently opens eyes to commands Interpretation & Diagnostics Lab Results Interpretation Result Diagram: 01/20/17 1520 01/20/17 1520 Test 01/20/17 15:20 01/20/17 15:37 White Blood Count 14.7th/mm3 (3.8-10.1) Red Blood Count 3.72mil/mm3 (3.90-5.20) Hemoglobin 9.8g/dL (12.0-15.6) Hematocrit 31.3% (35.0-46.0) Mean Corpuscular Volume 84.1fL (81-100) Mean Corpuscular Hemoglobin 26.3pg (27.0-35.0) Mean Corpuscular Hemoglobin Concent 31.3% (32.0-37.0) Red Cell Distribution Width 17.8% (12.3-15.4) Platelet Count 490bil/L (150-400) Neutrophils (%) (Auto) 82.2% (40-74) Lymphocytes (%) (Auto) 8.5% (14-46) Monocytes (%) (Auto) 7.6% (4-12) Eosinophils (%) (Auto) 1.4% (0-5) Basophils (%) (Auto) 0.1% (0-3) Sodium Level 140mEq/L (134-144) Potassium Level 4.6mEq/L (3.5-5.2) Chloride Level 107mEq/L (97-108) Carbon Dioxide Level 20mmol/L (18-29) Blood Urea Nitrogen 19mg/dL (6-24) Creatinine 0.43mg/dL (0.57-1.00) Estimat Glomerular Filtration Rate 221mL/min (>59) Glucose Level 104mg/dL (60-99) Lactic Acid Level 1.6mmol/L (0.4-2.0) Calcium Level 8.7mg/dL (8.5-10.1) Total Bilirubin 0.3mg/dL (0.0-1.2) Aspartate Amino Transf (AST/SGOT) 9U/L (0-50) Alanine Aminotransferase (ALT/SGPT) 20U/L (0-32) Alkaline Phosphatase 93U/L (25-150) Total Creatine Kinase 92U/L (21-215) Troponin T 0.043ug/L (0.0-0.011) Pro-B-Type Natriuretic Peptide 86.13pg/mL (0-249) Total Protein 6.6g/dL (6.4-8.4) Albumin 3.3g/dL (3.4-5.0) Procalcitonin 0.07ng/mL (0.00-0.08) Urine Color Dark yellow (YELLOW) Urine Appearance Clear (CLEAR,HAZY) Urine pH 6.0 (5.0-8.0) Urine Specific [place] 1.025 (1.003-1.035) Urine Protein Negativemg/dL (NEG,TRACE) Urine Glucose (UA) Negativemg/dL (NEGATIVE) Urine Ketones Negativemg/dL (NEGATIVE) Urine Occult Blood Negative (NEGATIVE) Urine Nitrite Negative (NEGATIVE) Urine Bilirubin Negative (NEGATIVE) Urine Urobilinogen Normalmg/dL (NORMAL) Urine Leukocyte Esterase Negative (NEGATIVE) Urine RBC 0-2/hpf (0-2) Urine WBC 0-5/hpf (0-5) Urine Epithelial Cells Occasional/hpf (NONE-MOD) Urine Crystals None seen (NONE SEEN) Urine Bacteria None/hpf (NONE-FEW) Urine Hyaline Casts None/lpf (NONE) Urine Granular Casts None seen (NONE SEEN) Urine Waxy Casts None seen (NONE SEEN) Urine Red Blood Cell Casts None seen (NONE SEEN) Urine White Blood Cell Casts None seen (NONE SEEN) Urine Mucus None seen (None Seen) Urine Trichomonas None seen (NONE SEEN) Urine Yeast None (NONE SEEN) Urinalysis Comment None Urine Culture Reflexed Not indicated ECG Interpretation Time: 16:00 Interpreted by: ED physician Normal ECG Interpretation: Normal ECG w/ rate of... (95), Normal rate, Normal sinus rhythm, No acute ischemic changes, Normal QRS, Normal axis, Normal intervals, Adequate tracing X-Ray Chest Interpretation Chest Xray Interpretation: IMPRESSION: Negative chest. No acute cardiopulmonary process is suspected. Dictated by: Alexey Babin M.D. on 01/20/2017 at 15:27 Approved by: Alexey Babin M.D. on 01/20/2017 at 15:29 View: Portable, 1 view Interpretation / Wet Read by: Interpret - Radiologist Re-Eval/Medical Decision Med Decision/Clinical Course Very unfortunate 51-year-old female with extensive sacral perineal and lower extremity decubiti secondary to prolonged exposure to stool and immobility. She also has venous stasis changes in the left lower extremity skin breakdown. The patient is experiencing recurrent hospitalizations related to this, it looks as though during her last admission nursing facility placement was felt appropriate, is unclear what changed with respect to this. She is also actively abusing drugs with methamphetamine in her urine. She had an elevated troponin but no chest pain no EKG changes. Fluid resuscitation broad-spectrum antibiotics were initiated in the emergency department. She was seen in the department by the wound care service, we also discussed the case and reviewed images with the burn service at [facility]. It was not felt that she needed to be transferred down there, the recommendations were essentially for supportive care and wound care with Silvadene diapers. She was admitted to the hospitalist service. Source of Hx: Old records Time of Eval: 17:13 Re-Evaluation/Progress Note: Informed pt and of possible need for transport for higher level of surgical care and management. Consultation #1: Referral / Consult Name: Dominique Barajas MD Consulted With: Surgeon Call Returned at: 17:19 Site Damage Prevention Technician: Agrees with eval, Agrees with plan Note: Agrees with plan transfer for higher level of care. Consultation #2: Call Returned at: 15:30 Site Damage Prevention Technician: Agrees with eval, Agrees with plan Note: protein specialist came and evaluated the patient, their note is below: Wound Care Wound care contacted by emergency department to see patient in room 4 for extensive skin issues. 51 yo female with MS and psoriasis presents with stasis dermatitis edema of the left lower leg and weeping left lower leg/ankle with skin excoriation. Patient also presents with skin excoriation and moisture associated skin breakdown of her sacrum,right buttocks and left buttocks. All of these areas were treated in emergency room with a mixture of betadine, hydrogen peroxide and saline applied with wash cloths, once areas were cleaned shield wipes were used to protect excoriated skin from any further incontinence issues, a Cordero catheter was placed while in the emergency room and left leg was wrapped after cleaning in the same fashion using xeroform, kerlix and surgilast, this can be changed by nursing daily. A P500 bed was ordered for the patient, I would recommend no brief on this patient to allow air flow to this skin and treat skin in the meantime with shield wipes daily after pericare. May be useful to have dermatology consult on this patient to ensure she is medicated appropriately for this condition. Wound care will recheck on this patient on Monday. Consultation #3: Call Returned at: 20:45 Note: Dr. [facility] recommends Silvadene diapers and wound care consult. Does not believe burn center transfer is necessary after seeing pictures of the patient. Recommends admit to [facility] Consultation #4: Referral / Consult Name: Wilton Cabrera MD Consulted With: Hospitalist Call Returned at: 21:07 Site Damage Prevention Technician: Will see patient, Agrees with eval, Agrees with plan, Accepts admit Counseled Regarding: Diagnosis, Lab results, Need for admission Discharge & Departure Primary Impression: Decubitus ulcer of sacral area Pressure ulcer stage: unstageable Qualified Code: L89.150 - Pressure ulcer of sacral region, unstageable Disposition: ADMITTED TO HOSPITAL Transfer Requested at: 17:36 Call returned time (2044) Receiving Hospital: [facility] Transfer Accepted: No Transfer Reason: Higher level of care Spoke with: Specialty physician Discharge Condition All VS Reviewed: Yes Condition: Stable Referrals: Artur López DO (PCP) Yana Attestation Portions of this note were transcribed by Michael Stringer. I, Dr. Ha, personally performed the history, physical exam and medical decision-making; I reviewed and confirmed the accuracy of the information in the transcribed note. Signed by Yana Trammell, 01/20/17 - 1600 copies to: Artur López DO Slack, Donald L MD Jan 20, 2017 15:10 MICHAEL STRINGER Jan 20, 2017 15:16
[2017-01-20 15:46] LABS: BASOPHILS % (AUTO) 0.1 % (0-3)
[2017-01-20 15:51] LABS: EOSINOPHILS % (AUTO) 1.4 % (0-5); MONOCYTES % (AUTO) 7.6 % (4-12); Mean Corpuscular Hemoglobin 26.3 pg (27.0-35.0); Mean Corpuscular Volume 84.1 fL (81-100); NEUTROPHILS % (AUTO) 82.2 % (40-74); Platelet Count 490 bil/L (150-400)
[2017-01-20 16:17] VITALS: BP 125/70; PULSE 101; RESP 18; O2SAT 96
[2017-01-20 16:20] LABS: APPEARANCE,URINE CLEAR (CLEAR,HAZY); COLOR,URINE DARK YELLOW (YELLOW); OCCULT BLOOD,URINE NEGATIVE (NEGATIVE); UROBILINOGEN,URINE NORMAL (NORMAL)
[2017-01-20 16:30] LABS: TROPONIN T 0.043 ug/L (0.0-0.011)
--- NOTE | 2017-01-20 16:30 | DRSVH ---
PROCEDURE: X-RAY CHEST ONE VIEW, PORTABLE ([id number]) INDICATIONS: fever TECHNIQUE: One view of the chest was acquired. COMPARISON: None. FINDINGS: Surgical changes and devices: None. Lungs and pleura: No pleural effusions or pneumothorax. Lungs are clear. Mediastinum: Mediastinal contours appear normal. Heart size is normal. Bones and chest wall: No suspicious bony lesions. Overlying soft tissues appear unremarkable. IMPRESSION: Negative chest. No acute cardiopulmonary process is suspected. Dictated by: Alexey Babin M.D. on 01/20/2017 at 15:27 Approved by: Alexey Babin M.D. on 01/20/2017 at 15:29
--- NOTE | 2017-01-20 16:33 | NUR ---
Wound Care Wound care contacted by emergency department to see patient in room 4 for extensive skin issues. 51 yo female with MS and psoriasis presents with stasis dermatitis edema of the left lower leg and weeping left lower leg/ankle with skin excoriation. Patient also presents with skin excoriation and moisture associated skin breakdown of her sacrum,right buttocks and left buttocks. All of these areas were treated in emergency room with a mixture of betadine, hydrogen peroxide and saline applied with wash cloths, once areas were cleaned shield wipes were used to protect excoriated skin from any further incontinence issues, a Cordero catheter was placed while in the emergency room and left leg was wrapped after cleaning in the same fashion using xeroform, kerlix and surgilast, this can be changed by nursing daily. A P500 bed was ordered for the patient, I would recommend no brief on this patient to allow air flow to this skin and treat skin in the meantime with shield wipes daily after pericare. May be useful to have dermatology consult on this patient to ensure she is medicated appropriately for this condition. Wound care will recheck on this patient on Monday.
[2017-01-20 18:58] VITALS: BP 127/70; PULSE 111; RESP 23; O2SAT 95
[2017-01-20] MEDS: HYDROmorphone 0.5 mg/0.5 mL iSecure Syringe IVPUSH PRN ×2 (19:16→20:30)
[2017-01-20] MEDS ORDERED: Polyethylene Glycol (PEG) 17 Gm Powder PO PRN (21:35)
[2017-01-20] MEDS ORDERED: Alum-Mag Hydrox-Simeth 30 mL Suspension PO PRN (21:35)
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
[2017-01-20 22:02] VITALS: BP 105/61; PULSE 107; RESP 17; O2SAT 95
[2017-01-20 22:45] VITALS: BP 120/96; PULSE 109; RESP 17; O2SAT 95
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
[2017-01-20] MEDS: 0.9% Sodium Chloride 1,000 ML IV SCH (23:05)
[2017-01-20] MEDS ORDERED: IBUP200C PO (23:17)
[2017-01-20] MEDS ORDERED: ASPI81TA3 PO (23:17)
[2017-01-20] MEDS ORDERED: CHOL200025 PO (23:20)
[2017-01-20] MEDS ORDERED: CYAN500 PO (23:20)
[2017-01-20] MEDS ORDERED: BACL10TA PO (23:21)
[2017-01-20] MEDS ORDERED: METH750T3 PO (23:21)
[2017-01-20] MEDS: Heparin 5,000 Unit/mL Inj SUBQ SCH (23:37)
[2017-01-21] VITALS (7 sets, daily range): BP systolic 93–135; BP diastolic 51–86; PULSE 100–112; RESP 14–17; O2SAT 92–97
[2017-01-21] MEDS: Clindamycin Inj 900 MG in IV Premix 1 EACH IV SCH ×3 (01:05→16:50)
[2017-01-21] MEDS: HYDROmorphone 1 mg/mL Inj IVPUSH PRN ×8 (01:08→21:59)
[2017-01-21] MEDS: Meropenem Inj 2,000 MG in 0.9% Sodium Chloride 100 ML IV SCH ×3 (01:52→18:37)
[2017-01-21 03:28] LABS: BASOPHILS % (AUTO) 0.3 % (0-3); EOSINOPHILS % (AUTO) 2.5 % (0-5); MONOCYTES % (AUTO) 10.5 % (4-12); Mean Corpuscular Hemoglobin 26.1 pg (27.0-35.0); Mean Corpuscular Volume 84.4 fL (81-100); NEUTROPHILS % (AUTO) 66.5 % (40-74); Platelet Count 384 bil/L (150-400)
--- NOTE | 2017-01-21 05:41 | NUR ---
Pain: Pt. crying/moaning in pain intermittently between episodes of sleep. PRN pain medication administered with varied effectiveness on pain. Physician notified of findings, awaiting orders.
[2017-01-21] MEDS: Pantoprazole 40 mg ER24 Tablet PO SCH (06:14)
--- NOTE | 2017-01-21 06:29 | PCM.CONPHA ---
Subjective Date of Service: Jan 21, 2017 Requesting Provider: Andrew Lu DO Multiple wounds, cellulitis, History of Present Illness worsening of cellulitis with recent history of MRSA and pseudomonas UTI Reason for Pharmacy Consult: Vancomycin Dosing Objective Vital Signs Date Time Temp Pulse Resp B/P Pulse Ox O2 Delivery O2 Flow Rate FiO2 01/21/17 05:29 110 01/21/17 03:22 36.8 109 16 94/51 95 Room Air 01/20/17 22:45 109 17 120/96 95 Room Air 01/20/17 22:02 107 17 105/61 95 Room Air 01/20/17 18:58 111 23 127/70 95 Room Air 01/20/17 16:17 101 18 125/70 96 Room Air 01/20/17 15:07 36.8 104 18 120/72 99 Room Air Intake and Output 01/19/17 01/20/17 01/21/17 00:00 00:00 00:00 Intake Total 1000 ml Balance 1000 ml Weight (Kilograms): 70.500 Height (Feet): 5 Height (Inches): 5.00 Test 01/20/17 15:20 01/20/17 15:37 01/21/17 03:20 Lactic Acid Level 1.6mmol/L (0.4-2.0) Magnesium Level 2.0mg/dL (1.6-2.6) Total Creatine Kinase 92U/L (21-215) Troponin T 0.043ug/L (0.0-0.011) Pro-B-Type Natriuretic Peptide 86.13pg/mL (0-249) Procalcitonin 0.07ng/mL (0.00-0.08) Urine Color Dark yellow (YELLOW) Urine Appearance Clear (CLEAR,HAZY) Urine pH 6.0 (5.0-8.0) Urine Specific [place] 1.025 (1.003-1.035) Urine Protein Negativemg/dL (NEG,TRACE) Urine Glucose (UA) Negativemg/dL (NEGATIVE) Urine Ketones Negativemg/dL (NEGATIVE) Urine Occult Blood Negative (NEGATIVE) Urine Nitrite Negative (NEGATIVE) Urine Bilirubin Negative (NEGATIVE) Urine Urobilinogen Normalmg/dL (NORMAL) Urine Leukocyte Esterase Negative (NEGATIVE) Urine RBC 0-2/hpf (0-2) Urine WBC 0-5/hpf (0-5) Urine Epithelial Cells Occasional/hpf (NONE-MOD) Urine Crystals None seen (NONE SEEN) Urine Bacteria None/hpf (NONE-FEW) Urine Hyaline Casts None/lpf (NONE) Urine Granular Casts None seen (NONE SEEN) Urine Waxy Casts None seen (NONE SEEN) Urine Red Blood Cell Casts None seen (NONE SEEN) Urine White Blood Cell Casts None seen (NONE SEEN) Urine Mucus None seen (None Seen) Urine Trichomonas None seen (NONE SEEN) Urine Yeast None (NONE SEEN) Urinalysis Comment None Urine Culture Reflexed Not indicated White Blood Count 9.8th/mm3 (3.8-10.1) Red Blood Count 3.07mil/mm3 (3.90-5.20) Hemoglobin 8.0g/dL (12.0-15.6) Hematocrit 25.9% (35.0-46.0) Mean Corpuscular Volume 84.4fL (81-100) Mean Corpuscular Hemoglobin 26.1pg (27.0-35.0) Mean Corpuscular Hemoglobin Concent 30.9% (32.0-37.0) Red Cell Distribution Width 17.1% (12.3-15.4) Platelet Count 384bil/L (150-400) Neutrophils (%) (Auto) 66.5% (40-74) Lymphocytes (%) (Auto) 20.0% (14-46) Monocytes (%) (Auto) 10.5% (4-12) Eosinophils (%) (Auto) 2.5% (0-5) Basophils (%) (Auto) 0.3% (0-3) Sodium Level 141mEq/L (134-144) Potassium Level 4.0mEq/L (3.5-5.2) Chloride Level 110mEq/L (97-108) Carbon Dioxide Level 19mmol/L (18-29) Blood Urea Nitrogen 12mg/dL (6-24) Creatinine 0.47mg/dL (0.57-1.00) Estimat Glomerular Filtration Rate 199mL/min (>59) Glucose Level 89mg/dL (60-99) Calcium Level 8.2mg/dL (8.5-10.1) Total Bilirubin 0.4mg/dL (0.0-1.2) Aspartate Amino Transf (AST/SGOT) 7U/L (0-50) Alanine Aminotransferase (ALT/SGPT) 14U/L (0-32) Alkaline Phosphatase 72U/L (25-150) Total Protein 5.2g/dL (6.4-8.4) Albumin 2.4g/dL (3.4-5.0) Prealbumin 10mg/dL (20-40) Assessment/Plan Assessment/Plan A/ - 51 y/o female patient brought in ED on 01/20 for worsening of multiple wounds infection. Patient was discharged from [facility] end of December for MRSA wounds and pseudomonas UTI, and completed amoxicillin 10 days therapy 4 days ago. Vancomycin ordered to treat extensive sacral decubitus - Afebrile, WBC: 14.7@admission, 9.8 (after received abx), blood cultures x2 : pending - In ED, received one time dose of Vancomycin 1.25G @1645 01/20, Meropenem, and Clindamycin; all three are continued - Wt: 65.9 kg, ht: 165 cm, SCr: 0.43 mg/dL, est. clearance ~125 ml/min, BSA : 26 kg/m2, Vd: 46 L, t1/2 ~ 6 hrs P/ - Give one more dose of Vancomycin 1250mg iv @0330 (11 hrs from the loading dose), then Vancomycin 1G iv q8h. Trough level ordered prior to 4th dose @ 1900. This regimen would yield a trough around 17 Pharmacy will continue to follow and make necessary adjustment Thank you for consulting clinical pharmacy in the care of this patient Vipin Lee PharmD, [facility] Saira Lee Jan 21, 2017 06:29
[2017-01-21] MEDS: Vancomycin Dose per Pharmacist XX SCH (08:30)
[2017-01-21] MEDS: Heparin 5,000 Unit/mL Inj SUBQ SCH ×2 (09:18→16:48)
[2017-01-21] MEDS: 0.9% Sodium Chloride 1,000 ML IV SCH ×2 (09:18→22:01)
--- NOTE | 2017-01-21 11:24 | NUR ---
NUTRITION ASSESSMENT: ASSESS:51 YO female with history of MS, severe diffuse psoriasis, stasis dermatitis with chronic lymphedema, presented to ED with acute sepsis, encephalopathy, elevated troponin, as well as extensive sacral perineal and lower extremity decubiti secondary to prolonged exposure to stool and inability to reposition herself. She also has venous stasis changes in the left lower extremity skin, with breakdown involving the left posterior calf and dorsal foot. [facility] burn center was consulted by the ED and they recommended Silvadene diapers. Sign Painter Helper recommending dermatology consult to ensure she is medicated appropriately for this condition. Case Management will be following closely. PMHx:MS diagnosed in 2003, chronic LLE wounds, degenerative disk disease, psoriasis, stasis dermatitis, chronic lymphedema, substance abuse (meth, opiates). DIET:NPO, pending surgery consult. LABS: Chloride 110, Cr 0.47, Ca 8.2, PAB 10. MEDICATIONS: Reviewed. NUTRITION FOCUSED PHYSICAL ASSESSMENT: GI symptoms / stool: BM x 1 today. John: 9 Skin Integrity: Sign Painter Helper noting stasis dermatitis edema of the left lower leg and weeping left lower leg/ankle with skin excoriation. Patient also presents with skin excoriation and moisture associated skin breakdown of her sacrum, right buttocks and left buttocks. Surgery consult pending. ANTHROPOMETRICS: Current Wt: 70.5 kgBMI: 25.0 kg/m2. IBW: 61.81 kg (114% IBW) ESTIMATED NEEDS (WOUNDS): Calories: 2115 - 2468 kcal (30 - 35 kcal / kg BW) Protein: 106 - 127 g protein (1.5 - 1.8 g / kg BW) Fluid: Approx. 2468 mL (35 mL / kg BW) NUTRITION DIAGNOSIS: 1)Increased nutrient needs related to multiple skin issues, as evidenced by requirement for wound management and surgical consult. INTERVENTION: 1) Will add supplements to trays. 2) Once encephalopathy clears, will discuss initiation of Stevo supplement that contains glutamine and arginine for advanced wound healing. MONITOR/EVALUATE: Diet advance / tolerance, PO intake, labs, GI/nutrition status. Follow up per high nutrition risk guidelines.
[2017-01-21] MEDS: VANCOMYCIN IV SCH ×2 (11:46→22:00)
[2017-01-21] MEDS: DEXTROSE 5% IV SCH ×2 (11:46→22:00)
[2017-01-21] MEDS: MATE IV SCH ×2 (11:46→22:00)
--- NOTE | 2017-01-21 15:12 | PCM.PNMED ---
Subjective Date of Service Jan 21, 2017 Subjective Patient is laying in bed, very uncomfortable, in lots of pain due to multiple decubitus ulcers and venous stasis with multiple skin breakdowns. She complained of severe 10/10 pain secondary to her skin wounds. Patient's speech is incoherent at times, but she is alert and oriented and tries to answer the questions to her best ability. is by bedside. Exam Vital Signs Vital Sign - Last Date Time Temp Pulse Resp B/P Pulse Ox O2 Delivery O2 Flow Rate FiO2 01/21/17 12:53 37.1 100 16 93/51 92 Room Air Intake and Output 01/20/17 01/20/17 01/21/17 Cumulative From/Thru 15:00 23:00 07:00 01/20/17 15:07 - 01/21/17 06:46 Intake Total 1000 ml 1193 ml 2193 ml Output Total 500 ml 500 ml Balance 1000 ml 693 ml 1693 ml Intake Oral 0 ml 0 ml IV Total 1000 ml 1193 ml 2193 ml Output Urine Total 500 ml 500 ml # Bowel Movements 1 1 Exam General: Patient is alert and oriented to person to place and month and year however doses off episodically during the interview. Patient appearing in distress, lying in bed moaning, and mumbling responses to questioning. HEENT: NC/AT, eyes noninjected, pupils equally round, neck tender to palpation, patient has difficulty placing chin to chest without pain. Neck feels soft supple, no adenopathy, no JVD, no masses, no thyromegaly, throat mucous membranes pink and very dry, very poor dentition, poor oral care. Plaques present on the tongue. Lungs: CTAB anteriorly, no wheezes, no rhonchi, no crackles, no adventitious lung sounds, no use of accessory muscles of respiration, good air movement, poor respiratory effort Heart: Regular rate and rhythm, no murmur, no rub, no click, no distant heart sounds, Abdomen: Soft, nontender, nondistended, bowel sounds not heard, no rebound, no guarding, Genitourinary: no suprapubic tenderness, Cordero catheter in place and draining clear yellow-colored urine. Extremities: Muscle strength, 5 out of 5 upper extremity and the right, and 1-2 out of 5 on the left upper extremity. Pulses equal and symmetric upper/lower extremity including radial and dorsalis pedis, bilateral lower extremity edema present. Left lower extremity is bandaged with new clean dry bandage. Neurologic: Difficult given patient's cooperation with exam testing. no no facial droop, speech is slurred, cranial nerves II through XII grossly intact bilaterally Skin: Diffuse psoriatic plaques too numerous to count extending up the back, present on the arms and legs and chest and face. Bilateral buttock decubitus with eschar present on the right, severe erythema of the perineum appears to be chemical burn likely from patient's loose stools and incontinence. Lower extremity foot appears erythematous, lower extremity leg bandaged to just distal to the knee on the left. Bilateral onychomycoses, severely dry skin, bilateral lower extremity edema and erythema of the legs. IVs and Medications Medications Reviewed: Medications were reviewed in detail Lab and Diagnostics Result Diagram: 01/21/17 0320 01/21/17 0320 X-Rays, CTs and MRIs X-RAY CHEST IMPRESSION: Negative chest. No acute cardiopulmonary process is suspected. Dictated and approved by: Alexey Babin M.D. on 01/20/2017 at 15:27 12-lead ECG Sinus rhythm with a rate of 95, normal axis, P waves before each QRS, normal R wave progression, slight ST segment depression in leads V4-5 Assessment & Plan Dunia Jerez is a very unfortunate 51 y/o F with history of MS, and severe psoriasis, who presented to ED with extensive sacral perineal and lower extremity decubitus secondary to prolonged exposure to stool and inability to reposition herself, she also has venous stasis changes in the left lower extremity skin, with breakdown involving the left posterior calf and dorsal foot. She was recently treated at [facility] pseudomonal urinary tract infection and MRSA wound infection. Patient was discharged on 10 days of amoxicillin which she completed [address] [facility] Patient was found to have elevated troponin, was tachycardic, and somnolent frequently dozing off and failing to respond to questioning. She complained of severe 10/10 pain secondary to her skin wounds. [facility] burn [facility] was consulted by the ED and they recommended Silvadene diapers. Wound care was consulted, made recommendations and dressed wounds. Patient was admitted to the hospital for severe pain, worsening bedsores, and cellulitis. 1. Acute sepsis, present on admission. Active - Vital signs in the ED: Temperature 36.8, pulse 104, blood pressure 120/72, respiratory rate 18, 99% on room air. - Patient was diagnosed on 12/26/2016 with a Pseudomonas UTI at [facility]. Patient has chronic open wounds. - Vital signs in the ED: Temperature 36.8, pulse 104, blood pressure 120/72, respiratory rate 18, 99% on room air. - WBC 14.7, PMNs 82.2% - UA: negative UA., normal lactic acid, normal procalcitonin - Blood cultures ordered and pending 2 - Continuous cardiac monitoring - Continue antibiotics Vancomycin 1250 mg, Meropenem 2000 mg and Clindamycin 900 mg - Continue IV normal saline maintenance dose at 100 mL per hour - We will consult infectious disease, Dr. Cuevas, after surgery does surgical wound debridement scheduled on Monday, 9 am. 2.Decubitus Ulcers, chronic, present on admission. Active - Extensive involvement of the perineal area which appears red and raw and reminiscent of a burn injury. Bilateral buttock pressure ulcers, with prominent eschar of the right buttock. Left lower extremity calf and dorsal foot decubiti. - Per [facility] note patient's wounds and "Urine mina" were present during that admission. - Was recently hospitalized in [facility] between 12/26/16 and 01/03/17. At [facility] patient had wound culture which grew Pseudomonas and MRSA. Patient was treated with Vanco and Zosyn. - Per patient's 's reports patients skin wounds have worsened since being discharged from your [facility]. - Patient is a history of multiple sclerosis with multiple chronic bedsores. - Patient's daughter is a DIRECTOR CREDIT RISK and has adequate home environment to care for the patient, and may be taking patient and her to live with her after discharge. - Wound care is following patient on outpatient status. Thank you for your recommendations. - In the ED Cordero catheter was placed - Surgery Dr. Toledo consulted - We will continue antibiotics Vancomycin 1250 mg, Meropenem 2000 mg and Gentamicin 100 mg once - We will continue IV normal saline maintenance dose at 100 mL per hour - We will consult infectious disease, Dr. Cuevas, in the morning regarding this patient. - Social work consult as patient likely the in need of SNF placement on discharge patient's daughter is unable to care for her. - A P500 bed was ordered for the patient - Silvadene diapers per [facility] burn center recommendation. We will wait on this as wound recommends no barrier to [place] area at this time. - left leg ulcer: wrapped using xeroform, kerlix and surgilast, this can be changed by nursing daily. - I would recommend no brief on this patient to allow air flow to this skin and treat skin in the meantime with shield wipes daily after pericare. - Surgical debridement tomorrow morning at 9 am 3. Bilateral Leg Cellulitis, present on admission. Active - Patient is skin breakdown of left lower extremity, with associated erythema extending to the distal toes. Left lower extremity was bandaged so assessment was difficult however right lower extremity showed moderate degree of erythema as well. The bilateral involvement brings into question as to whether or not cellulitis truly is the correct diagnosis. However per [facility] note patient had received Ancef and showed significant 30-40% improvement overnight of her cellulitis while at their facility. - Differential diagnosis occludes worsening stasis dermatitis, versus other inflammatory process such as her worsening psoriasis. - Of note patient does have history of stasis dermatitis. - Left lower extremity was bandaged so assessment was difficult however right lower extremity showed moderate degree of erythema. - Antibiotics and wound care as above. 4. Elevated troponin, present on admission. Active - Most likely due to demand ischemia from sepsis - Denies chest pain, heart palpitations, shortness of breath, diaphoresis - EKG showed sinus rhythm with a rate of 95, normal axis, P waves before each QRS, normal R-wave progression, slight [address] segment depression leads V4-5. -surgeon evaluated and she needs debridement.ACS unlikely.likely demand ischemia from sepsis.benefit of source control of infection with debridement overweighs risk of ACS. - Continue to monitor 5. Acute encephalopathy, present on admission. Active. - Patient is alert and oriented to person place and month and year however she has diminished from her normal baseline mentation over the past 3-4 days. Patient does become somnolent at times and doses off in interview. - Etiologies include infectious, severe pain, dehydration, illicit drug abuse to include methamphetamine, THC, and opiates. 6. Methamphetamine abuse, present on admission. Active - Urine tox returned positive for methamphetamine. 7. Multiple Sclerosis diagnosed in 2003, present on admission. Active - Followed by Dr. Alvarado, Neurologist, was last seen 1 year ago 8. Anemia, normocytic hypochromic ,present on admission. Active - H/H 9.8/31.3, MCV 84.1, MCH 26.3, MCHC 31.3 Chronic issues: # Degenerative Disc Disease - We will hold patient's outpatient Percocet 02/08/2025 milligrams tablets - Will start IV Dilaudid 0.5-1 mg every 4 hours when necessary # Psoriasis, severe, diffuse, present on admission, active - She would likely benefit from follow-up with dermatology as an outpatient. # Stasis Dermatitis # Chronic lymphedema - We will hold off on giving Lasix as patient appears dry - We will defer to wound care for recommendations for bandaging over wrapping the lower extremities. Disposition: Admitted to in patient service with expected length of stay greater than 2 days, secondary to severity of presenting symptoms, treatment plan, complexity of clinical work up, and risk of adverse events. PCP: Dr. Artur López Contact: [place] patient's Pain Evaluation: Adequate Pain Control GI Prophylaxis: Proton Pump Inhibitor VTE Prophylaxis: Sub-Q Heparin (Unfractionated) Resuscitation Status: CPR: Attempt Resuscitation Attending Statement The patient was seen and examined together with Dr. Tang on 01/21/17 and I agree with the history, exam and plan as outlined in the note above. Katty Tang DO Jan 21, 2017 15:12 David Spears MD Jan 21, 2017 22:04
--- NOTE | 2017-01-21 16:18 | NUR ---
Social Work- Brief Note Data: EMR reviewed. Pt is a 51 year old female admitted for sacral decubitis, general weakness per H&P. Wound Care is following pt. ID is consulting. Surgery is consulting. Pt's payor is [facility] [place] [facility] and [facility]. Pt's PCP is Artur López DO. Per chart review, pt lives with . Pt is [place] a wheelchair at base, per MD in rounds pt is bedbound at base. Pt's urine tox screen at admissions was (+) for methamphetamine, opiates, THC. SW to follow up regarding this. Pt's daughter is reportedly a SUPPLIER DIVERSITY DIRECTOR, it is unclear if pt's daughter is able or willing to care for pt after admission. Pt has no DPOA on file. Pt has a history of Rosey ROCHA RN after last admission. Pt may be skillable for SNF, though placement at SNF with pt's payor can be difficult. SW to follow up with pt and spouse regarding discharge plan. Assessment: Pt who is bedbound at base. Plan: Pt who may benefit from SNF placement, which may prove difficult through pt's payor source. SW to speak with pt regarding tox screen. SW to follow up with pt and spouse regarding discharge plan. ASHELY Huerta
[2017-01-21] MEDS ORDERED: Vancomycin Serum Trough XX ONE (19:00)
[2017-01-21 19:23] LABS: Vancomycin, Trough 15.1 mcg/mL
--- NOTE | 2017-01-21 19:23 | NUR ---
Pain/Skin Pt cries intermittently while sleeping. Cries and verbal complains with any movement. Pt administered 1mg Dilaudid IV push q2 hrs prior to turns. Pt experiences some relief. Pt skin excoriated from approximately midriff to mid thigh, with eschar on buttocks. Diligent 2Q turns have been implemented, linen and chucks changes with turns due to moderate amounts of discharge from her wounds on her buttocks.
--- NOTE | 2017-01-21 20:08 | PCM.PHAPRO ---
Progress Date of Service: Jan 21, 2017 Multiple wounds, cellulitis, Vanco per Rx Trough is 15.1; therapeutic, will keep current dose of 1gm q8h Next trough tomorrow @ 1900 Rojelio Stock PharmD Jan 21, 2017 20:08
[2017-01-22] VITALS (17 sets, daily range): BP systolic 95–125; BP diastolic 47–89; PULSE 82–110; RESP 13–17; O2SAT 92–100
[2017-01-22] MEDS: HYDROmorphone 1 mg/mL Inj IVPUSH PRN ×7 (00:23→20:23)
[2017-01-22] MEDS: Heparin 5,000 Unit/mL Inj SUBQ SCH ×3 (00:26→16:34)
[2017-01-22] MEDS: Meropenem Inj 2,000 MG in 0.9% Sodium Chloride 100 ML IV SCH ×3 (02:48→23:37)
[2017-01-22] MEDS: Clindamycin Inj 900 MG in IV Premix 1 EACH IV SCH ×3 (02:49→22:50)
[2017-01-22] MEDS: VANCOMYCIN IV SCH ×3 (03:50→20:27)
[2017-01-22] MEDS: DEXTROSE 5% IV SCH ×3 (03:50→20:27)
[2017-01-22] MEDS: MATE IV SCH ×3 (03:50→20:27)
--- NOTE | 2017-01-22 04:03 | CONS ---
[address] [address] CONSULTATION REPORT PATIENT: DARLENE DIAZ : 1965 MR#: [id number] ADMIT: 01/20/2017 JOB ID: [id number] DATE OF SERVICE: 01/21/2017 CHIEF COMPLAINT: Extensive decubitus ulcer. HISTORY OF PRESENT ILLNESS: The patient is a 51-year-old female with MS, who presented to the emergency department yesterday for clinical deterioration and worsening of decubitus ulcers. I was contacted by the hospitalist service for evaluation. The patient was recently treated at [facility] and was hospitalized there. According to her , the decubitus ulcers have gotten worse since the discharge. She was seen in the emergency department yesterday and Wound Care was immediately contacted and involved in her care. I was contacted by the hospitalist today. According to the nursing staff, she also has lice. Wound cultures from [facility] had shown Pseudomonas and MRSA. She also had urine tox screen that was positive for methamphetamine and amphetamine, THC, and also opiates. PAST MEDICAL HISTORY: Recent hospitalization at [facility]. Multiple sclerosis, followed by Dr. Kateryna Alvarado, chronic left lower extremity wounds, psoriasis, stasis dermatitis, and also chronic lymphedema, and tubal ligation. MEDICATIONS AT HOME: Include Maalox, baclofen, methocarbamol, ondansetron, Protonix, senna, aspirin. ALLERGIES: SULFA, TRIMETHOPRIM. SOCIAL HISTORY: The patient lives with her near [place]. FAMILY HISTORY: Positive for pancreatic cancer, diabetes, lupus, and stroke. PHYSICAL EXAMINATION: The patient is currently in the intensive care unit. Her is in the room. Her BMI is 25.9. Temperature 37.1, blood pressure 93/51, pulse is 100, respirations 16. Head is normocephalic, atraumatic. Neck is supple. Heart is regular rate. Lungs are clear. Abdomen is soft and nontender. Extremities shows diffuse psoriasis, especially the left lower extremity. There are multiple scabs on the left schaeffer and calf area. However, they are not open. There is extensive psoriasis across her left lateral thigh and buttock. There is extensive decubitus ulcer of her right medial buttock all the way from the intergluteal cleft down to her peritoneum. Her vaginal/perineal region are erythematous. A Cordero catheter is in place. Neurologically, the patient is able to speak and answer a few questions. The patient is having pain, and cries. LABORATORY EXAMINATION: Showed a white blood count of 9.8, hematocrit 25.9, platelet count is 384. Sodium is 141, potassium 4.0, creatinine 0.47. Her total bilirubin is 0.4. Her troponin this morning was 0.106. ASSESSMENT: This is an unfortunate, 51-year-old female, with multiple sclerosis, who has an extensive right medial buttock decubitus ulcer which is not stageable at this moment. I do not believe there are open ulcers at this time. However, they looked to be grayish black, that needs operative debridement. I discussed the case with the hospitalist who is not concerned about the elevated troponin. We will tentatively schedule her for operative debridement in the operating room tomorrow.
--- NOTE | 2017-01-22 05:02 | NUR ---
Pain pt continues to be in pain stating 10/10 at times and crying while turning. pt will fall asleep at times and awaken with crying. PRN 1mg IVP Dilaudid given Q2. VSS and Tele SR-T. Pt has been NPO since 0000 for surgical debridement of wounds.
[2017-01-22 05:37] LABS: BASOPHILS % (AUTO) 0.4 % (0-3); EOSINOPHILS % (AUTO) 5.6 % (0-5); MONOCYTES % (AUTO) 6.5 % (4-12); Mean Corpuscular Hemoglobin 25.7 pg (27.0-35.0); Mean Corpuscular Volume 83.4 fL (81-100); NEUTROPHILS % (AUTO) 63.4 % (40-74); Platelet Count 414 bil/L (150-400)
[2017-01-22] MEDS: Pantoprazole 40 mg ER24 Tablet PO SCH (06:30)
[2017-01-22] MEDS: Vancomycin Dose per Pharmacist XX SCH (08:30)
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
[2017-01-22] MEDS ORDERED: Lactated Ringer's 1,000 ML IV ONE (09:11)
--- NOTE | 2017-01-22 10:25 | PCM.ANEP1 ---
Post Anesthesia Phase 1 PACU Phase 1 Assessment Date of Service: Jan 22, 2017 Vital Signs 37 109/58 88 17 100% FM Anesthetic Administered: GA Level of Alertness: Sleeping, hard to arouse Pain: No Pain Scale Score: 0 Nausea or Vomiting: No Oxygen Delivery: Simple Mask Lungs: Clear to Auscultation, Normal Air Movement Indra Guillen MD Jan 22, 2017 10:25
--- NOTE | 2017-01-22 10:28 | PCM.ANEP2 ---
Post Anesthesia Evaluation ASA/CMS Post Anesthesia Date of Service: Jan 22, 2017 VS in Patient's Normal Range?: Yes Resp Stable; Airway Patent?: Yes CV Function & Hydration Stable: Yes Mental Status Recovered?: Yes Pain control Satisfactory?: Yes N/V Control Satisfactory?: Yes Indra Guillen MD Jan 22, 2017 10:27
[2017-01-22] MEDS ORDERED: Lactated Ringer's 1,000 ML IV SCH (10:39)
[2017-01-22] MEDS ORDERED: Lactated Ringer's 500 ML IV PRN (10:39)
[2017-01-22] MEDS ORDERED: Labetalol 5 mg/mL 4 mL Inj IV PRN (10:40)
[2017-01-22] MEDS ORDERED: HYDROmorphone 1 mg/mL Inj IVPUSH PRN (10:40)
[2017-01-22] MEDS ORDERED: EPHEDrine Sulfate 50 mg/mL Inj IVPUSH PRN (10:40)
[2017-01-22] MEDS ORDERED: Phenylephrine 10,000 mCg/mL Inj IVPUSH PRN (10:40)
[2017-01-22] MEDS ORDERED: hydrALAZINE 20 mg/mL Inj IVPUSH PRN (10:40)
[2017-01-22] MEDS ORDERED: fentaNYL-PF 50 mCg/mL 2 mL Inj IVPUSH PRN (10:40)
[2017-01-22] MEDS ORDERED: Atropine 0.4 mg/mL Inj IVPUSH PRN (10:40)
[2017-01-22] MEDS ORDERED: Dexamethasone 4 mg/mL Inj IVPUSH PRN (10:40)
[2017-01-22] MEDS ORDERED: MetoCLOpramide 5 mg/mL 2 mL Inj IVPUSH PRN (10:40)
[2017-01-22] MEDS ORDERED: Ondansetron 2 mg/mL 2 mL Inj IVPUSH PRN (10:40)
--- NOTE | 2017-01-22 11:30 | NUR ---
Surgery Pt back from surgical procedure to dbride her buttocks and sacral area. Report received from Skinny BAHENA. Pt returned to room via her bed. Pt resting comfortably. Surgical area visualized, debrided area covered with betadine covered gauze and ABD pads. Pt reconnected to [employer] and tech was notified. IV antibiotics were restarted. Pt continues to be drowsy although awakens to touch.
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
[2017-01-22] MEDS ORDERED: VANCOMYCIN IV SCH (13:00)
[2017-01-22] MEDS ORDERED: DEXTROSE 5% IV SCH (13:00)
[2017-01-22] MEDS ORDERED: MATE IV SCH (13:00)
[2017-01-22] MEDS ORDERED: Clindamycin Inj 900 MG in IV Premix 1 EACH IV SCH (13:30)
[2017-01-22] MEDS: 0.9% Sodium Chloride 1,000 ML IV SCH ×2 (13:31→13:32)
--- NOTE | 2017-01-22 15:22 | NUR ---
Social Work- Continued D/C Planning Data: EMR reviewed. Pt is on day 2 of hospitalization for sacral decubitis, general weakness per H&P. Wound Care is following pt. ID is consulting. Surgery is consulting. Pt received debridement today. YUMIKO spoke with , Aguilar Massey [phone], at bedside regarding discharge plan, SW role explained. Pt was too somnolent to contribute to conversation. SW spoke to pt's regarding potential SNF placement. Pt's agreeable, SNF choice list provided. SW explained that SNF authorization may be difficult due to pt's payor. Pt's payor is [email or web address] [place] [employer] and [facility] Medicaid. Pt's chose [facility] as first choice, [facility] as second, [facility] as 3rd. [facility] does not have a contract with [email or web address]. SW faxed referral to [facility] and [facility] as well. Pt's urine tox screen at admissions was (+) for methamphetamine, opiates, THC. SW addressed this screen with pt's who states that pt has been taking her husbands medications, including methacarbonal and lisinopril which (according to pt's ) can trigger a false positive. SW spoke with MD who states that it may be a false positive depending on which medications were given to pt at [facility]. SW to follow up with pt regarding methamphetamine, amphetamine, and opiate use when pt is more awake. Pt has a history of [facility] RN after last admission. YUMIKO spoke with [facility] liaison, who states that pt is not currently open with [facility]. Assessment: [place] who [place] wheelchair bound [place] base. Plan: Referral faxed to [facility] (no contract), [facility], and [facility]. SNF placement may be difficult through pt's payor source. SW to speak with pt regarding tox screen when pt is more alert. SW will continue to follow. ASHELY Huerta
[2017-01-22] MEDS ORDERED: Vancomycin Serum Trough XX ONE (20:30)
--- NOTE | 2017-01-22 21:04 | OP ---
[address] [address] OPERATIVE REPORT PATIENT: DARLENE DIAZ : 1965 MR#: [id number] ADMIT: 01/20/2017 JOB ID: [id number] DATE OF SURGERY: 01/22/2017 SURGEON: Hill Toledo MD FILM CUTTER: FRANCISCA Dexter and also Bing Renae. ANESTHESIA: General. PREOPERATIVE DIAGNOSIS(ES): Sacral and right medial buttock decubitus ulcers. POSTOPERATIVE DIAGNOSIS(ES): Sacral and right medial buttock decubitus ulcers. PRINCIPAL PROCEDURE: Excisional debridement of sacral and right buttock decubitus ulcers approximately 60 square cm. INDICATION FOR PROCEDURE: The patient is a 51-year-old female with multiple sclerosis and sacral and right medial buttock decubitus ulcers. PRINCIPAL FINDING: Successful excisional debridement. The ulcers started at the coccyx area at the intergluteal cleft and extended down inferiorly along the right medial buttock for a total length of approximately 16 cm and the width is approximately 4-5 cm. PROCEDURAL COURSE: The patient was brought to the operating table and was provided with general anesthesia. The patient was given SCDs and placed into a prone position, exposing her buttocks. A time-out was performed. Using surgical scrub and soap, we cleaned her buttock and posterior thigh region and removed a lot of her flaky skin. Next, using a scalpel sharp excision of all the compromised skin and subcu was performed all the way from the coccyx down inferiorly towards her right medial buttock. The entire length was approximately 16 cm and the width was 4-5 cm in width. After sharp excision of the skin and subcu, hemostasis was controlled with cautery. The patient bled quiet easily with just the slightest excision which is a good sign. After hemostasis was controlled and after irrigation, the depth of the created wound was no more than 1-2 mm. Kerlix soaked in Betadine was then placed directly over the sacral and right medial buttock location and a sterile dressing was then applied. The patient was then extubated and taken back to the intensive care unit in stable satisfactory condition.
[2017-01-23] VITALS (7 sets, daily range): BP systolic 96–106; BP diastolic 49–69; PULSE 88–109; RESP 15–20; O2SAT 92–95
[2017-01-23] MEDS: Heparin 5,000 Unit/mL Inj SUBQ SCH ×3 (01:07→16:57)
[2017-01-23] MEDS: 0.9% Sodium Chloride 1,000 ML IV SCH ×2 (02:18→11:16)
[2017-01-23] MEDS: HYDROmorphone 1 mg/mL Inj IVPUSH PRN ×7 (04:12→22:38)
[2017-01-23 05:03] LABS: BASOPHILS % (AUTO) 0.2 % (0-3); EOSINOPHILS % (AUTO) 1.9 % (0-5); MONOCYTES % (AUTO) 9.7 % (4-12); Mean Corpuscular Hemoglobin 25.2 pg (27.0-35.0); Mean Corpuscular Volume 83.6 fL (81-100); Platelet Count 346 bil/L (150-400)
[2017-01-23] MEDS: DEXTROSE 5% IV SCH (06:04)
[2017-01-23] MEDS: VANCOMYCIN IV SCH (06:04)
[2017-01-23] MEDS: Clindamycin Inj 900 MG in IV Premix 1 EACH IV SCH (06:04)
[2017-01-23] MEDS: MATE IV SCH (06:04)
--- NOTE | 2017-01-23 07:32 | NUR ---
Pain/Skin Pt given PRN dilaudid for generalized joint pain which was worse w/ movement, this was effective per pt and she appeared to rest comfortably after this was given. After initial pain med administration pt appeared more conversive and had an appetite, also smiling as she conversed some. Pt was Q2 turned and compliant with this. Marie area cleaned w/ barrier wipes only. Surgical area had loose ABD pads over betadine soaked gauze which stayed intact but was reinforced d/t mod amount of serous drainage.
[2017-01-23] MEDS: Vancomycin Dose per Pharmacist XX SCH (08:30)
[2017-01-23] MEDS: Pantoprazole 40 mg ER24 Tablet PO SCH (08:31)
--- NOTE | 2017-01-23 11:13 | NUR ---
Gave access and faxed facesheet to BORIS,Opal KULKARNI per PAYROLL SUPERVISOR. Addendum: 01/23/17 at 1402 by JOSSIE TANNER CM [facility] is [facility] and they do not have a MD who will take on these patients. Updated PAYROLL SUPERVISOR
[2017-01-23] MEDS: Meropenem Inj 2,000 MG in 0.9% Sodium Chloride 100 ML IV SCH (11:16)
--- NOTE | 2017-01-23 12:02 | NUR ---
Wound Care Pt seen at bedside for wound care, Patient overall looks 100% better than on Monday01/20/17. Left lower leg dressings changed, edema is significantly decreased, drainage from posterior leg excoriation is moderate,area measures 8 cm L x 6 cm W and 0.1 cm D, redressed with Vaseline gauze, abd pads and kerlix wrap with surgilast. Sacral wounds are reassessed and cleaned with gauze today, skin has been debrided by Dr Toldeo and wound now presents as shallow ulcer at sacrum and right buttocks approximately 16 cm L x 6 cm W x 0.2 cm D. Fresh abd pad was placed over this wound and held in place with brief. Believe this patient will need SNF on discharge for wound care. Nursing to change dressings q 48 hrs or PRN for soiling.
[2017-01-23] MEDS ORDERED: Glycopyrrolate 0.2 MG/ML 1mL Inj ONE (13:09)
[2017-01-23] MEDS ORDERED: Rocuronium 10 mg/mL 5 mL Inj ONE (13:09)
[2017-01-23] MEDS ORDERED: Propofol 10,000 mCg/mL 20 mL Inj ONE (13:09)
[2017-01-23] MEDS ORDERED: Neostigmine 1 mg/mL 10 mL Inj ONE (13:09)
[2017-01-23] MEDS ORDERED: fentaNYL-PF 50 mCg/mL 2 mL Inj ONE (13:09)
[2017-01-23] MEDS ORDERED: Ondansetron 2 mg/mL 2 mL Inj ONE (13:09)
[2017-01-23] MEDS ORDERED: Dexamethasone 4 mg/mL Inj ONE (13:09)
--- NOTE | 2017-01-23 14:34 | PCM.PNSURG ---
Subjective Date of Service: Jan 23, 2017 Date of Service: Jan 23, 2017 Visit Information: Reason for Visit Sacral Decubitis,General Weakness,Elevated Troponi Surgery/Surgery Date Post-Op Day # Date of Admission: Jan 20, 2017 at 21:20 Hospital Day # Subjective: Patient was in acute distress during positioning for wound examination. Objective Objective General: Patient is alert and oriented to person to place. Patient in acute distress with passive and active movement. lying in bed. HEENT: NC/AT, eyes noninjected, pupils equally round, neck tender to palpation, patient has difficulty placing chin to chest without pain. Lungs: CTAB anteriorly, no wheezes, no rhonchi, no crackles,. Heart: Regular rate and rhythm, no murmur, no rub,. Abdomen: Soft, nontender, nondistended, bowel sounds not heard, no rebound, no guarding, Genitourinary: no suprapubic tenderness, Cordero catheter in place and draining clear yellow-colored urine. Extremities: Rigid extremities. Pulses equal and symmetric upper/lower extremity including radial and dorsalis pedis, bilateral lower extremity edema present. Left lower extremity is bandaged with new clean dry bandage. Neurologic: Difficult given patient's cooperation with exam testing. Skin: Diffuse psoriatic plaques from head to toe. Bilateral buttock and sacral wound with shallow ulceration, clean and moist with improving erythema since admission. Severe erythema of the perineum appears to be chemical burn likely from patient' s loose stools and incontinence. Lower extremity foot appears erythematous with ulcerations below the knee on the anterior and posterior surface. Vital Sign- Last 8 Hours Date Time Temp Pulse Resp B/P Pulse Ox O2 Delivery O2 Flow Rate FiO2 01/23/17 12:00 37.1 109 18 96/56 95 Nasal Cannula 2.00 01/23/17 11:03 101 01/23/17 08:00 37.0 100 18 106/63 95 Nasal Cannula 2.00 Intake and Output- Last 8 Hour 01/23/17 Cumulative From/Thru 07:00 01/20/17 15:07 - 01/23/17 03:39 Intake Total 6700 ml Output Total 4450 ml Balance 2250 ml Intake Oral 490 ml IV Total 6210 ml Output Urine Total 4450 ml # Bowel Movements 2 Result Diagram: 01/23/17 0455 01/23/17 0455 Assessment & Plan Impression Cutaneous and Subcutaneous debridement of sacral and gluteal closed decubitus ulcers status post day #1. Other medical problems. Problems: Plan Dunia Jerez is a very unfortunate 51 y/o F with history of MS, and severe psoriasis, and sacral / gluteal ulcers status post #1 following surgical debridement. Patients ulcerations remain shallow and showed good blood supply during surgical debridement. With regular repositioning and adequate wound care, these wounds will heal nicely. Continue I&D wound care. Wound care following. Due to debilitating MS patient will require close care for regular repositioning and wound care as outpatient to ensure wound remains free of urine and feces. VTE Prophylaxis: Sub-Q Heparin (Unfractionated) Resuscitation Status: CPR: Attempt Resuscitation TEREZA PYLE DO Jan 23, 2017 14:34
--- NOTE | 2017-01-23 15:04 | CONS ---
[address] [address] CONSULTATION REPORT PATIENT: DARLENE DIAZ : 1965 MR#: [id number] ADMIT: 01/20/2017 JOB ID: [id number] DATE OF SERVICE: 01/23/[address] Antony for this timely consult. REASON FOR CONSULTATION: Extensive shallow soft tissue inflammation with possible superinfection. HISTORY OF THE PRESENT ILLNESS: The patient is an exceptionally unfortunate, 51-year-old woman, whom I know from a prior admission this year. The patient has a number of overlapping difficult problems made worse by her social situation. She has longstanding multiple sclerosis and is largely bed-bound, though she gets around in a wheelchair some, but she cannot ambulate. Additionally, she has chronic venous stasis changes on the lower extremities and urinary incontinence. She has some help at home from her , who recently had heart surgery, and an adult son who works outside of the home part of the day. Oftentimes, she is left sitting in urine and has had many problems at this and other hospitals with basically urine mina to her perineal and backside area. In addition to the EMS and problems with mobility and urine, she has psoriasis which further contributes to her skin problems. She also continues to be a cigarette smoker and has consistently positive urine for methamphetamines, though she denies the use of methamphetamine. She was admitted here in November, at which time, she had a great deal of erythematous tissue around her buttocks and both lower extremities, which we thought was mainly due to urinary incontinence, immobility, and lack of turning. She came in that time with a change in mental status and leukocytosis which rapidly resolved, and we ended up sending the patient out with a fairly short course of amoxicillin. During that November admission, it was found she had an extremely high ASO titer which suggested that at least part of the issue was Streptococcal superinfection of these superficial ulcerated areas. Since her discharge from here in November, the patient returned to the where she lives with her and son. Her had heart surgery lately and the patient has received less care in terms of turning and helping with mobility than usual. She was admitted to the [facility] in [place] during the last week of December. At that point, she was admitted to the [facility] during the last week of December with a change in mental status which was the same reason she was actually admitted here in November. During that admission, they discovered that there were areas of shallow ulceration and skin breakdown on her buttocks and legs, which is a familiar situation. These areas were cultured and apparently according the notes we had from [facility] grew MRSA and Pseudomonas. They treated her with a course of vancomycin and Zosyn, and then she was discharged once again back to her home environment. This admission occurred on January 20, when she was once again evaluated for change in mental status and possible soft tissue infection. The patient herself has little insight into what brought her in other than she had pain in her legs and around her buttock and perineal areas which is a relatively chronic complaint. She denied fevers, chills, or sweats once she was able to provide some history. Today, she complains of pain around her buttocks at the site of her recent debridement of her right inferior buttock that was done by Dr. Toledo of General Surgery. She also has some pain in her lower extremities but no fevers, no chills. No sweats. No significant sore throat, cough, or GI symptomatology. PAST MEDICAL HISTORY: 1. Multiple sclerosis with profound disability. 2. Chronic venous stasis changes of both lower extremities. 3. Urinary incontinence with of urine "mina " to buttocks and perineal area on a chronic basis. 4. Poor hygiene secondary to her fairly advanced MS and inability to keep herself dry and clean with respect to urination and stool. 5. Psoriasis. SOCIAL HISTORY: The patient lives with her and apparently son as well in an . The just had cardiac surgery and is not able to help too much. The patient continues to smoke cigarettes but it is unclear how much. She also does smoke marijuana. She mentions that she does not use amphetamines, but urine studies done here in the past, as well as [facility] fairly recently, and here during this admission are all positive for methamphetamines. FAMILY HISTORY: Including first and second-degree relatives, is negative for tuberculosis. REVIEW OF SYSTEMS: The patient today says she has no significant headache, visual change, sore throat, cough, chest pain, nausea, vomiting, but she does have some diarrhea. She does have a Cordero catheter in place so no longer suffers from urinary incontinence, which was her main symptom. She does have some pain in the lower extremities as well as around her right buttock which was recently debrided. Remainder of the review of systems is negative. PHYSICAL EXAMINATION: Reveals an afebrile woman. Temperature 37 degrees, pulse 100, respiratory rate 18, blood pressure 106/63. She is saturating well but requiring 2 L. She is awake, alert, and emotionally labile. Examination of the skin in general shows psoriasiform lesions which are present over the head and neck, as well as scattered locations elsewhere on the body, including the lower torso and the lower extremities. The eyes are without conjunctivitis or scleral icterus. The oral cavity, no thrush or pharyngitis. The neck is without adenopathy and seems fairly supple. The lungs are clear, anteriorly and posteriorly. Cardiac tones: Regular rate and rhythm. No murmurs noted. Abdomen is soft and nontender without organomegaly. There is considerable inflammation in the perineal area with diffuse erythema, but we examined the patient carefully with the wound senior talent management consultant, who notes it has actually been improving over the last couple days. On her buttocks, there is diffuse really confluent erythema and there has been some debridement in an area, about 16 x 5 cm, which was shallow debridement performed yesterday by General Surgery. The areas of debridement bleed easily and do not appear infected at this point. The lower extremities are notable for some edema, about 2+ bilaterally. The legs below the knees have bilateral erythema and shallow venous stasis ulcers with diffuse stasis dermatitis. The psoriasis lesions are extensive and occupy much of the back, the lower torso, the legs, as well as the head and neck. Neurologically, the patient has no evidence of synovitis and is able to move with respect to her joints, but with the lower extremities, she is very weak on both sides and cannot stand or walk on her own. Her upper extremities have more full range of motion, though she is weak, probably about 4+ over 5. Remainder of the physical is unremarkable. LABORATORIES: Include a white count which was 15,000 when she came in and very rapidly normalized. This is exactly the way it happened in November. During that admission, she came in with a white count which rapidly became normal. The patient's current white count is 9000, completely normal diff. Creatinine is 0.46. Urinalysis without white cells. Streptozyme from November was very elevated and there is little reason to repeat it, as it is likely still going to be elevated. Blood cultures on admission are negative but I have just ordered a MRSA screen. Chest x-ray from admission on the is clear. IMPRESSION: This is an extremely unfortunate woman who reportedly lives in an , which is quite cramped, and she does not have access to [id number] care from her or son, which would probably be needed for optimal living in that circumstance. The patient is incontinent of urine and has often had issues where she has spent long periods of time sitting while wet with urine or even sometimes with stool. This combined with her lack of turning, personal hygiene, and underlying psoriasis leads to superficial inflammation and infection of the skin, especially around the buttocks, perineum, and lower extremities. This time, as during her admission in November, I think that the main problem is lack of good skin care as opposed to a raging infection. During both admissions, her skin and white count started to improve dramatically just after discharge and the placement of a Cordero catheter to keep urine off the inflamed areas. It is notable that at [facility] cultures grew MRSA and Pseudomonas, but I suspect these are more colonizing than infecting organisms. Last time she was here, she clearly did have however a group A strep infection which was significant. This case discussed in great detail with Guru Aguirre of wound care, as well as nursing staff with whom we evaluated the patient extensively. RECOMMENDATIONS: 1. A MRSA nasal PCR has been ordered. 2. We are going to start the patient on some mupirocin ointment to the nares b.i.d. to try and eradicate the MRSA carriage she must have at this point. 3. I would substitute linezolid 600 mg p.o. b.i.d. for all of her other antibiotics. Continue that for a few days. Note that this could easily be done at home. 4. From a broader perspective, I think this patient's interest would be served by some change perhaps in her overall situation. An indwelling Cordero is usually not a great idea because it will always lead to urinary colonization and eventually infection, but in this case, I think it may be warranted to prevent additional skin inflammation and breakdown. An even bolder plan would be to consider a stay in a alf to allow the patient's skin to fully recover from the many acute dermatologic insults here recently. Also worth considering here would be a dermatology consult as she has fairly advanced psoriasis, and that in combination with urinary incontinence and immobility is leading to a cycle of just repeated hospital admissions and chronic debility.
--- NOTE | 2017-01-23 15:59 | NUR ---
Social Work Note: Continued Discharge Planning/ CD assessment Data & Assessment: SW met with pt at bedside to discuss discharge planning and CD use. Pt was positive for Amphetamines, Methamphetamines and THC. Pt explained she does smoke marijuana and use products with THC in them. Pt explained that she did smoke meth in the past, last being in 2011, but had a poor experience and has not participated in any drug use since. Pt explained that when her pain became increasingly worse at home, pt gave her leftover methacarbonal and lisinopril that he had had in the past. These are the only medications pt can think of that would cause her to be positive for those substances in a tox screen. Pt denies any other drug use. Pt explained that she usually manges her pain alternating between Tylenol and ibuprofen. Pt denies any suicidal ideation or hx of suicidal ideation. Pt states she feels comfortable communicating to her son or if she ever did feel like she wanted to kill herself. Pt states she feels like her needs were being met at home, pt confirmed she feels safe at home. Pt explained that she only needed to come to the hospital because her wounds became worse. Pt states that her has not been able to do as much heavy lifting lately due to a recent hospitalization, but pt feels she is able to transfer to the toilet or bed from her wheelchair if needed. SW discussed SNF with pt for wound care needs and becoming stronger to transfer more independently. Pt emphasized her desire to go home, however, after further conversation regarding the possibility of her or sister injuring themselves trying to lift her and her wounds getting worse at home, pt agreed going to a SNF would be a good idea. Pt would like to stay locally, SW referenced pt husbands preferences for SNF's provided to SW yesterday. Pt agreed that any of the facilities in this [facility] would be okay for her, she would like to stay close to home if possible. Pt became very emotional and started crying during this conversation, pt explained "I feel like every time I come to the hospital, I get worse." SW and pt discussed the goals of having her wounds heal and getting back home. Pt became calmer. Pt was appreciative of conversation, SW to continue to check in with pt. SW to continue to follow. Plan: Anticipated discharge to SNF pending acceptance. [facility] does not have contract with pt insurance. Melita from [facility] is unable to accept pt. SW to continue to follow. ASHELY Caraballo
--- NOTE | 2017-01-23 16:40 | PCM.PNMED ---
Subjective Date of Service Jan 23, 2017 Subjective Patient states she is doing better. She is status post surgical debridement of her decubitus ulcers. Her mentation is more clear today and her pain seems to be more controlled. Exam Vital Signs Vital Sign - Last Date Time Temp Pulse Resp B/P Pulse Ox O2 Delivery O2 Flow Rate FiO2 01/23/17 12:00 37.1 109 18 96/56 95 Nasal Cannula 2.00 Intake and Output 01/22/17 01/22/17 01/23/17 Cumulative From/Thru 15:00 23:00 07:00 01/20/17 15:07 - 01/23/17 03:39 Intake Total 500 ml 909 ml 6700 ml Output Total 350 ml 1300 ml 4450 ml Balance 150 ml -391 ml 2250 ml Intake Oral 240 ml 490 ml IV Total 500 ml 669 ml 6210 ml Output Urine Total 350 ml 1300 ml 4450 ml # Bowel Movements 2 Exam General: Alert and oriented x 3 HEENT: No conjunctivitis or scleral icterus, poor dentition, poor oral care, plaques present on the tongue Lungs: Clear to auscultation bilaterally Heart: Regular rate and rhythm, no murmur appreciated Abdomen: Soft, nontender, nondistended Genitourinary: Cordero catheter in place and draining clear yellow-colored urine, inflammation in the perineal area with diffuse erythema Neurologic: Difficult given patient's cooperation with exam testing. No no facial droop, speech is somewhat slurred, cranial nerves II through XII grossly intact bilaterally Skin: Diffuse psoriatic plaques,there is diffuse confluent erythema on her buttocks, debrided area, 16 x 5 cm, performed yesterday by General Surgery. The areas of debridement bleed easily and do not appear infected at this point. Lower extremity foot appears erythematous, lower extremity leg bandaged to just distal to the knee on the left. Bilateral onychomycoses, severely dry skin, bilateral lower extremity edema and erythema of the legs. Lab and Diagnostics Result Diagram: 01/23/17 0455 01/23/17454 X-Rays, CTs and MRIs X-RAY CHEST IMPRESSION: Negative chest. No acute cardiopulmonary process is suspected. Dictated and approved by: Alexey Babin M.D. on 01/20/2017 at 15:27 12-lead ECG Sinus rhythm with a rate of 95, normal axis, P waves before each QRS, normal R wave progression, slight ST segment depression in leads V4-5 Assessment & Plan Dunia Jerez is a very unfortunate 51 year old female with history of multiple sclerosis, and severe psoriasis, who presented to Emergency Department with extensive sacral perineal and lower extremity decubitus secondary to prolonged exposure to stool and inability to reposition herself, she also has venous stasis changes in the left lower extremity skin, with breakdown involving the left posterior calf and dorsal foot. She was recently treated at [facility] pseudomonal urinary tract infection and MRSA wound infection. Patient was discharged on 10 days of amoxicillin which she completed 4 days ago[address] [facility] Patient was found to have elevated troponin, was tachycardic, and somnolent frequently dozing off and failing to respond to questioning. She complained of severe 10/10 pain secondary to her skin wounds. [facility] burn center was consulted by the Emergency Department and they recommended Silvadene diapers. Wound care was consulted, made recommendations and dressed wounds. Patient was admitted to the hospital for severe pain, worsening bedsores, and cellulitis. 1. Sepsis, present on admission. Resolved - Initial Vital signs in the Emergency Department: Temperature 36.8, pulse 104, blood pressure 120/72, respiratory rate 18, 99% on room air. White blood count 14.7, PMNs 82.2% - Patient was diagnosed on 12/26/2016 with a Pseudomonas UTI at [facility]. Patient has chronic open wounds. - UA: negative UA., normal lactic acid, normal procalcitonin - Blood cultures no growth 2, MRSA nasal PCR pending - Per infectious disease recommendation, we will discontinue vancomycin, meropenem and clindamycin and start her on linesolid, 600 mg by mouth twice a day - Start the patient on mupirocin ointment to the nares twice a day 2.Decubitus Ulcers, chronic, present on admission, status post surgical debridement. Active - Extensive involvement of the perineal area which appears red and raw and reminiscent of a burn injury. Bilateral buttock pressure ulcers, with prominent eschar of the right buttock. Left lower extremity calf and dorsal foot decubitus. - Per [facility] note patient's wounds and "Urine mina" were present during that admission. - Was recently hospitalized in [facility] between 12/26/16 and 01/03/17. At [facility] patient had wound culture which grew Pseudomonas and MRSA. Patient was treated with Vanco and Zosyn. - Per patient's 's reports patients skin wounds have worsened since being discharged from [facility]. - Patient is a history of multiple sclerosis with multiple chronic bedsores. - Patient's daughter is a [employer] and has adequate home environment to care for the patient, and may be taking patient and her to live with her after discharge. - Wound care is following patient on outpatient status. - In the Emergency Department Cordero catheter was placed - Social work consult as patient likely the in need of SNF placement on discharge if patient's daughter is unable to care for her. - A P500 bed was ordered for the patient - Silvadene diapers per [facility] burn center recommendation. We will wait on this as wound recommends no barrier to [place]ville area at this time. - left leg ulcer: wrapped using xeroform, kerlix and surgilast, this can be changed by nursing daily. - I would recommend no brief on this patient to allow air flow to this skin and treat skin in the meantime with shield wipes daily after pericare. - Surgical debridement done yesterday, 01/22/[address] Toledo: cutaneous and subcutaneous debridement of sacral and gluteal closed decubitus ulcers - Per infectious disease recommendation, we will discontinue vancomycin, meropenem and clindamycin and start her on linesolid, 600 mg by mouth twice a day 3. Bilateral Leg Cellulitis, present on admission. Active - Patient is skin breakdown of left lower extremity, with associated erythema extending to the distal toes. Left lower extremity was bandaged so assessment was difficult however right lower extremity showed moderate degree of erythema as well. The bilateral involvement brings into question as to whether or not cellulitis truly is the correct diagnosis. However per [facility] note patient had received Ancef and showed significant 30-40% improvement overnight of her cellulitis while at their facility. - Differential diagnosis occludes worsening stasis dermatitis, versus other inflammatory process such as her worsening psoriasis. - Of note patient does have history of stasis dermatitis. - Left lower extremity was bandaged so assessment was difficult however right lower extremity showed moderate degree of erythema. - Antibiotics and wound care as above. 4. Elevated troponin, present on admission. Active - Most likely due to demand ischemia from sepsis - Denies chest pain, heart palpitations, shortness of breath, diaphoresis - EKG showed sinus rhythm with a rate of 95, normal axis, P waves before each QRS, normal R-wave progression, slight [address] segment depression leads V4-5. - surgeon evaluated and she needs debridement.ACS unlikely.likely demand ischemia from sepsis.benefit of source control of infection with debridement overweighs risk of ACS. - Continue to monitor 5. Acute encephalopathy, present on admission. resolved - Patient is alert and oriented to person place and month and year however she has diminished from her normal baseline mentation over the past 3-4 days. Patient does become somnolent at times and doses off in interview. - Etiologies include infectious, severe pain, dehydration, illicit drug abuse to include methamphetamine, THC, and opiates. 6. Methamphetamine abuse, present on admission. Active - Urine tox returned positive for methamphetamine. 7. Psoriasis, chronic, present on admission. Active - Dermatology follow up as an outpatient 8. Multiple Sclerosis diagnosed in 2003, present on admission. Active - Followed by Dr. Alvarado, Neurologist, was last seen 1 year ago 9. Anemia, normocytic hypochromic ,present on admission. Active - H/H 9.8/31.3, MCV 84.1, MCH 26.3, MCHC 31.3 Chronic issues: # Degenerative Disc Disease - We will hold patient's outpatient Percocet 02/08/2025 milligrams tablets - Will start IV Dilaudid 0.5-1 mg every 4 hours when necessary # Psoriasis, severe, diffuse, present on admission, active - She would likely benefit from follow-up with dermatology as an outpatient. # Stasis Dermatitis # Chronic lymphedema - We will hold off on giving Lasix as patient appears dry - We will defer to wound care for recommendations for bandaging over wrapping the lower extremities. Disposition: pending hospital course. May need to be discharged to [facility] facility for better wound care at least for short-term PCP: Dr. Artur López Contact: Aguilar patient's Pain Evaluation: Adequate Pain Control GI Prophylaxis: Proton Pump Inhibitor VTE Prophylaxis: Sub-Q Heparin (Unfractionated) Resuscitation Status: CPR: Attempt Resuscitation Attending Statement The patient was seen and examined together with Dr. Tang on 01/23/2017 and I agree with the history, exam and plan as outlined in the note above. . Katty Tang DO Jan 23, 2017 16:40 Terrell Antony MD Jan 23, 2017 17:23
--- NOTE | 2017-01-23 18:19 | NUR ---
SKIN/PAIN P-Patient c/o 8/10 pain from bottom, extensive dry flaking skin, orville area red exfoliated. I- Dilaudid IVP 1 mg given Q2hr x4. Patient given bed bath, linens changed, dressing on bottom changed x2, 3:1 barrier whip applied. E- Patient states pain 2/10. Wound Care in and states "skin is 100% better" than when in ER. Antibiotics refined and continued per Infectious specialist .
[2017-01-23] MEDS: Mupirocin 2% 22 Gm Ointment NASAL SCH (20:25)
[2017-01-24] MEDS: 0.9% Sodium Chloride 1,000 ML IV SCH ×3 (00:45→07:42)
[2017-01-24] MEDS: Heparin 5,000 Unit/mL Inj SUBQ SCH ×3 (00:45→17:07)
[2017-01-24] MEDS: HYDROmorphone 1 mg/mL Inj IVPUSH PRN ×4 (01:34→10:39)
--- NOTE | 2017-01-24 02:06 | NUR ---
Skin/Pain Pt turned Q2 and compliant with this. Pt has increased pain when turned and when dressing changed on bottom. Barrier wipes used to clean pt's skin around thighs/orville area. Heels floated. Left leg dressing C/D/I PRN Dilaudid given for 10/10 pain in joints/bottom wound. Pt reported 3/10 pain when reassessed.
[2017-01-24 05:01] LABS: BASOPHILS % (AUTO) 0.4 % (0-3); EOSINOPHILS % (AUTO) 7.4 % (0-5); MONOCYTES % (AUTO) 8.6 % (4-12); Mean Corpuscular Hemoglobin 25.7 pg (27.0-35.0); Mean Corpuscular Volume 85.3 fL (81-100); NEUTROPHILS % (AUTO) 55.5 % (40-74); Platelet Count 412 bil/L (150-400)
[2017-01-24 05:18] VITALS: BP 125/71; PULSE 85; O2SAT 95
[2017-01-24] MEDS: Pantoprazole 40 mg ER24 Tablet PO SCH (06:31)
[2017-01-24] MEDS: Mupirocin 2% 22 Gm Ointment NASAL SCH ×2 (07:42→22:04)
[2017-01-24 07:56] VITALS: BP 129/71; PULSE 84; RESP 16; O2SAT 95
--- NOTE | 2017-01-24 10:53 | NUR ---
Spoke with Frandy ROBLES at [facility] and they are unable to accept patient
[2017-01-24 12:36] VITALS: BP 122/70; PULSE 80; RESP 18; O2SAT 97
--- NOTE | 2017-01-24 13:08 | NUR ---
NUTRITION FOLLOW-UP ASSESS: 51 YO female admitted for extensive sacral perineal and lower extremity decubitus. Wound care is following and she is POD 2 surgical debridement of wounds. Per wound care note, wounds are improving. She is on a dysphagia mechanical diet with good PO at bites-100% of meals. Pt reported good appetite and she was being careful with her swallowing. PMHx: MS, chronic LLE wounds, degenerative disk disease, psoriasis, stasis dermatitis, chronic lymphedema, substance abuse (meth, opiates). DIET: Dysphagia Mechanical, PO Bites-100% LABS: Sourcing Specialist .47, Glu 122, Ca 8.2, Alb 2.4 MEDICATIONS: Reviewed. GI symptoms / stool: BM x 2, 01/21 Skin Integrity: sacral / gluteal ulcers, wound care and surgery following-wounds are improving ANTHROPOMETRICS: Current Wt: 73.2 kg BMI: 26.9 kg/m2, admit wt 70.5kg ESTIMATED NEEDS (WOUNDS): Calories: 2115 - 2468 kcal (30 - 35 kcal / kg BW) Protein: 105 - 125 g protein (1.5 - 1.8 g / kg BW) NUTRITION DIAGNOSIS: 1) Increased nutrient needs related to multiple skin issues, as evidenced by pt with sacral / gluteal ulcers and need for I&D of wounds.--IMPROVING INTERVENTION: 1) Continue Ensure on all trays. Pt reported that she liked the Ensure 2) Will add Stevo on L and D trays to help aide in wound healing. Pt agreed to try the Stevo and was willing to mix the powder with lemon council soda. Pt knows that she needs to fully mix the Stevo with the soda before drinking it so that she doesn't choke. MONITOR/EVALUATE: Diet tolerance, PO intake, wt, wounds, labs, GI/nutrition status. Follow up per high nutrition risk guidelines.
--- NOTE | 2017-01-24 13:43 | NUR ---
Evaluation completed. Please go to "Notes" then click on "Assessments and Notes" (bottom left corner of screen). Then select appropriate discipline tab on top of screen.
[2017-01-24] MEDS: oxyCODONE-Acetamin 5-325 mg Tablet PO PRN ×2 (13:45→19:51)
--- NOTE | 2017-01-24 14:39 | NUR ---
pain/placement/transfer/mobility Pt continues to have severe pain that she consistently rates 10/10. Dr Antony discussed halfway pain med mgt with pt and spouse and dc'd IV dilaudid and started pt on percocet. Pt is difficult placement for a SNF per psychiatric social worker. Orders recieved to transfer pt. PT works with pt, her bed mobility is limited and due to her pain she does not want to do very much.
--- NOTE | 2017-01-24 14:40 | PCM.PNMED ---
Subjective Date of Service Jan 24, 2017 Subjective Patient continues to improve even though she still has 8/10 buttock pain which is managed by intravenous dilaudid. According to wound care he skin looks much better. Her spirit is better as well. She continues to get emotional support from her . Exam Vital Signs Vital Sign - Last Date Time Temp Pulse Resp B/P Pulse Ox O2 Delivery O2 Flow Rate FiO2 01/24/17 12:36 36.9 80 18 122/70 97 Room Air 1.00 Intake and Output 01/23/17 01/23/17 01/24/17 Cumulative From/Thru 15:00 23:00 07:00 01/20/17 15:07 - 01/24/17 06:18 Intake Total 1523 ml 1204 ml 1261 ml 06405 ml Output Total 550 ml 700 ml 5700 ml Balance 973 ml 504 ml 1261 ml 4988 ml Intake Oral 473 ml 537 ml 1500 ml IV Total 1050 ml 667 ml 1261 ml 9188 ml Output Urine Total 550 ml 700 ml 5700 ml # Bowel Movements 2 Exam General: Alert and oriented x 3 in mild pain HEENT: No conjunctivitis or scleral icterus, poor dentition, poor oral care, plaques present on the tongue Lungs: Clear to auscultation bilaterally Heart: Regular rate and rhythm, no murmur appreciated Abdomen: Soft, nontender, nondistended Genitourinary: Cordero catheter in place and draining clear yellow-colored urine, inflammation in the perineal area with diffuse erythema Neurologic: Difficult given patient's cooperation with exam testing. No no facial droop, speech is somewhat slurred, cranial nerves II through XII grossly intact bilaterally Skin: Diffuse psoriatic plaques,there is diffuse confluent erythema on her buttocks, debrided area, 16 x 5 cm, performed yesterday by General Surgery. The areas of debridement bleed easily and do not appear infected at this point. Lower extremity foot appears erythematous, lower extremity leg bandaged to just distal to the knee on the left. Bilateral onychomycoses, severely dry skin, bilateral lower extremity edema and erythema of the legs. Lab and Diagnostics Result Diagram: 01/24/170 01/24/17 0440 X-Rays, CTs and MRIs X-RAY CHEST IMPRESSION: Negative chest. No acute cardiopulmonary process is suspected. Dictated and approved by: Alexey Babin M.D. on 01/20/2017 at 15:27 12-lead ECG Sinus rhythm with a rate of 95, normal axis, P waves before each QRS, normal R wave progression, slight ST segment depression in leads V4-5 Assessment & Plan Dunia Jerez is a very unfortunate 51 year old female with history of multiple sclerosis, and severe psoriasis, who presented to Emergency Department with extensive sacral perineal and lower extremity decubitus secondary to prolonged exposure to stool and inability to reposition herself, she also has venous stasis changes in the left lower extremity skin, with breakdown involving the left posterior calf and dorsal foot. She was recently treated at [facility] pseudomonal urinary tract infection and MRSA wound infection. Patient was discharged on 10 days of amoxicillin which she completed 4 days ago. At [facility] Patient was found to have elevated troponin, was tachycardic, and somnolent frequently dozing off and failing to respond to questioning. She complained of severe 10/10 pain secondary to her skin wounds. [facility] was consulted by the Emergency Department and they recommended Silvadene diapers. Wound care was consulted, made recommendations and dressed wounds. Patient was admitted to the hospital for severe pain, worsening bedsores, and cellulitis. 1. Sepsis, present on admission. Resolved - Initial Vital signs in the Emergency Department: Temperature 36.8, pulse 104, blood pressure 120/72, respiratory rate 18, 99% on room air. White blood count 14.7, PMNs 82.2% - Patient was diagnosed on 12/26/2016 with a Pseudomonas UTI at [facility]. Patient has chronic open wounds. - UA: negative UA., normal lactic acid, normal procalcitonin - Blood cultures no growth 2, MRSA nasal PCR negative - Per infectious disease recommendation, we will discontinue vancomycin, meropenem and clindamycin and start her on linesolid, 600 mg by mouth twice a day - Start the patient on mupirocin ointment to the nares twice a day 2.Decubitus Ulcers, chronic, present on admission, status post surgical debridement. Active - Extensive involvement of the perineal area which appears red and raw and reminiscent of a burn injury. Bilateral buttock pressure ulcers, with prominent eschar of the right buttock. Left lower extremity calf and dorsal foot decubitus. - Per [facility] note patient's wounds and "Urine mina" were present during that admission. - Was recently hospitalized [facility] between 12/26/16 and 01/03/17. At [facility] patient had wound culture which grew Pseudomonas and MRSA. Patient was treated with Vanco and Zosyn. - Per patient's 's reports patients skin wounds have worsened since being discharged from [facility]. - Patient is a history of multiple sclerosis with multiple chronic bedsores. - Patient's daughter is a [employer] and has adequate home environment to care for the patient, and may be taking patient and her to live with her after discharge. - Wound care is following patient on outpatient status. - In the Emergency Department Cordero catheter was placed - Social work consult as patient likely the in need of SNF placement on discharge if patient's daughter is unable to care for her. - A P500 bed was ordered for the patient - Silvadene diapers per [facility] burn center recommendation. We will wait on this as wound recommends no barrier to [place]ville area at this time. - left leg ulcer: wrapped using xeroform, kerlix and surgilast, this can be changed by nursing daily. - I would recommend no brief on this patient to allow air flow to this skin and treat skin in the meantime with shield wipes daily after pericare. - Surgical debridement done yesterday, 01/22/[address]edo: cutaneous and subcutaneous debridement of sacral and gluteal closed decubitus ulcers - Per infectious disease recommendation, discontinued vancomycin, meropenem and clindamycin - Continue linesolid, 600 mg by mouth twice a day - Discontinued intravenous dilaudid. Resume home percocet 5-325 mg, 1-2 tablets every 4 hours as needed for pain 3. Bilateral Leg Cellulitis, present on admission. Active - Patient is skin breakdown of left lower extremity, with associated erythema extending to the distal toes. Left lower extremity was bandaged so assessment was difficult however right lower extremity showed moderate degree of erythema as well. The bilateral involvement brings into question as to whether or not cellulitis truly is the correct diagnosis. However per [facility] note patient had received Ancef and showed significant 30-40% improvement overnight of her cellulitis while at their facility. - Differential diagnosis occludes worsening stasis dermatitis, versus other inflammatory process such as her worsening psoriasis. - Of note patient does have history of stasis dermatitis. - Left lower extremity was bandaged so assessment was difficult however right lower extremity showed moderate degree of erythema. - Antibiotic and wound care as above. 4. Elevated troponin, present on admission. Active - Most likely due to demand ischemia from sepsis - Denies chest pain, heart palpitations, shortness of breath, diaphoresis - EKG showed sinus rhythm with a rate of 95, normal axis, P waves before each QRS, normal R-wave progression, slight [address] segment depression leads V4-5. - surgeon evaluated and she needs debridement.ACS unlikely.likely demand ischemia from sepsis.benefit of source control of infection with debridement overweighs risk of ACS. - Continue to monitor 5. Acute encephalopathy, present on admission. resolved - Patient is alert and oriented to person place and month and year however she has diminished from her normal baseline mentation over the past 3-4 days. Patient does become somnolent at times and doses off in interview. - Etiologies include infectious, severe pain, dehydration, illicit drug abuse to include methamphetamine, THC, and opiates. 6. Methamphetamine abuse, present on admission. Active - Urine tox returned positive for methamphetamine. 7. Psoriasis, chronic, present on admission. Active - Dermatology follow up as an outpatient 8. Multiple Sclerosis diagnosed in 2003, present on admission. Active - Followed by Dr. Alvaraod, Neurologist, was last seen 1 year ago 9. Anemia, normocytic hypochromic ,present on admission. Active - H/H 9.8/31.3, MCV 84.1, MCH 26.3, MCHC 31.3 Chronic issues: # Degenerative Disc Disease - We will hold patient's outpatient Percocet 02/08/2025 milligrams tablets - Will start IV Dilaudid 0.5-1 mg every 4 hours when necessary # Psoriasis, severe, diffuse, present on admission, active - She would likely benefit from follow-up with dermatology as an outpatient. # Stasis Dermatitis # Chronic lymphedema - We will hold off on giving Lasix as patient appears dry - We will defer to wound care for recommendations for bandaging over wrapping the lower extremities. Disposition: Ppending hospital course and SNF placement. PCP: Dr. Artur López Contact: Aguilar patient's Pain Evaluation: Adequate Pain Control GI Prophylaxis: Proton Pump Inhibitor VTE Prophylaxis: Sub-Q Heparin (Unfractionated) Resuscitation Status: CPR: Attempt Resuscitation Attending Statement The patient was seen and examined together with Dr. Tang on 01/24/2017 and I agree with the history, exam and plan as outlined in the note above. . Katty Tang DO Jan 24, 2017 14:40 Terrell Antony MD Jan 27, 2017 09:51
--- NOTE | 2017-01-24 14:55 | PROG NOTE ---
[address] [address] PROGRESS NOTE PATIENT: DARLENE DIAZ : 1965 MR#: [id number] ADMIT: 01/20/2017 JOB ID: [id number] DATE: 01/24/2017 INFECTIOUS DISEASE FOLLOWUP NOTE: REASON FOR FOLLOWUP: Possible cellulitis and/or soft tissue infection in a patient with chronic urine injury to buttocks and perineum. INTERVAL HISTORY: Overnight, the patient reports she is feeling somewhat better. Her pain is well controlled with medication, and the pain is localized to her thighs, buttocks and joints. She has no fevers, chills, or sweats. She reports she is eating and has an excellent appetite. No new pulmonary or GI symptoms. PHYSICAL EXAMINATION: Reveals an afebrile woman, in no acute distress. Temp 36.6, pulse 84, respiratory rate 16, blood pressure 129/71. She looks better than yesterday and certainly comfortable. Lips without herpetic lesions. Lungs relatively clear. Cardiac tones: Regular rate and rhythm without significant murmur. Abdomen is benign. LABORATORIES: Include white count 8300, which is normal, 7% eosinophils. Creatinine 0.47. LFT are normal. Procalcitonin basically 0 x3. Urinalysis without white cells. MRSA screen negative. Blood cultures negative. IMAGING: No new imaging. IMPRESSION: This is an unfortunate woman who has had multiple admissions in recent months related to her difficulties with multiple sclerosis and chronic urinary incontinence and burning of the soft tissues of the buttocks, thighs and perineal area. Whether or not she has any infection at this point is a little bit unclear to me. We do know from the [facility] in [place] that recent cultures of some inflamed and cellulitic areas on her backside grew pseudomonas and methicillin-resistant Staphylococcus aureus but it is unclear whether this was colonization or infection. Yesterday, we reviewed the case in detail, and looked at all the wounds with Guru Aguirre of wound management. RECOMMENDATIONS: 1. Continue with mupirocin ointment to the nares for a 10-day course. 2. I would continue linezolid 600 b.i.d. for a total course of one week which would go through January 30. 3. I agree with the tentative plans underway for the patient to be sent to a detention for a period of time to get over this soft tissue inflammation and chronic burning from urine. Hopefully, after a period of healing, the patient will be ready to go home. 4. Other than completing linezolid through the , I have no recommendations, so Infectious Disease will go ahead and sign off at this time.
--- NOTE | 2017-01-24 15:49 | NUR ---
dressing change/ transfer dressing changed once at the beginning of shift and again at 1545. report called to sukh mckeon RN pt transferd to [id number]
--- NOTE | 2017-01-24 16:00 | NUR ---
Transfer Pt comes from [facility] on Bedfast with Cordero catheter patent and draining to gravity pale yellow urine. A&OX4 although delayed and mumbles responses. Almost appears sedated but as per report this is the pts affect. RA, Denies CP, SOB, or Nausea. C/O pain 8-10/10 spasms. Psoriasis all over generalized body from head to toe. Perineum area worse than others reddened. Bilateral LE edema. Left LE wrapped C/D/I. IV right AC not patent and leaking. Decub wounds on sacral buttock area assessed and redressed by wound care prior to coming down. Dressing C/D/I. Care continues
--- NOTE | 2017-01-24 16:15 | NUR ---
Social Work Note: Continued Discharge Planning Data& Assessment: SW met with pt and pt at bedside to discuss discharge planning. SW discussed SNF options and the possibility of sending out referrals to [facility] if we are unable to locate an accepting local SNF that can meet her wound care needs. Pt and pt would like to stay within the surrounding counties if possible. Pt exploring the idea of moving to [facility] where his daughter lives and is a [employer] for her to help care for pt. SW discussed [facility] caregiving with pt and pt , they are agreeable to expedited referral. SW to complete referral and fax to home and community services. SW made APS referral and spoke with form worker Tess flores regarding pt wounds and condition of pt when pt arrived at the ED. SW to continue to follow. Plan: Anticipated discharge to SNF when medically ready pending accepting facility. SW to complete [facility] referral. SW to continue to follow. ASHELY Caraballo
[2017-01-24 16:18] VITALS: BP 102/68; PULSE 96; RESP 16; O2SAT 95
--- NOTE | 2017-01-24 18:09 | PCM.PNSURG ---
Subjective Date of Service: Jan 24, 2017 Date of Service: Jan 24, 2017 Visit Information: Reason for Visit Sacral Decubitis,General Weakness,Elevated Troponi Surgery/Surgery Date Post-Op Day # Date of Admission: Jan 20, 2017 at 21:20 Hospital Day # Subjective: Patient was in acute distress during positioning for wound examination. Objective Objective General: Patient is alert and oriented to person to place. Patient in acute distress with passive and active movement. lying in bed. HEENT: NC/AT, eyes noninjected, pupils equally round, neck tender to palpation, patient has difficulty placing chin to chest without pain. Lungs: CTAB anteriorly, no wheezes, no rhonchi, no crackles,. Heart: Regular rate and rhythm, no murmur, no rub,. Abdomen: Soft, nontender, nondistended, bowel sounds not heard, no rebound, no guarding, Genitourinary: no suprapubic tenderness, Cordero catheter in place and draining clear yellow-colored urine. Extremities: Rigid extremities. Pulses equal and symmetric upper/lower extremity including radial and dorsalis pedis, bilateral lower extremity edema present. Left lower extremity is bandaged with new clean dry bandage. Neurologic: Difficult given patient's cooperation with exam testing. Skin: Diffuse psoriatic plaques from head to toe. Vital Sign- Last 8 Hours Date Time Temp Pulse Resp B/P Pulse Ox O2 Delivery O2 Flow Rate FiO2 01/24/17 12:36 36.9 80 18 122/70 97 Room Air 1.00 01/24/17 12:36 Supplement Oxygen Intake and Output- Last 8 Hour 01/24/17 Cumulative From/Thru 07:00 01/20/17 15:07 - 01/24/17 06:18 Intake Total 1261 ml 58246 ml Output Total 5700 ml Balance 1261 ml 4988 ml Intake Oral 1500 ml IV Total 1261 ml 9188 ml Output Urine Total 5700 ml # Bowel Movements 2 Result Diagram: 01/24/17 0440 01/24/17 0440 Assessment & Plan Impression Bilateral buttock and sacral wound with shallow ulceration, clean and moist with improving erythema since admission. Severe erythema of the perineum appears to be chemical burn likely from patient' s loose stools and incontinence. Lower extremity foot appears erythematous with ulcerations below the knee on the anterior and posterior surface. Problems: Plan Dunia Jerez is a very unfortunate 51 y/o F with history of MS, and severe psoriasis, and sacral / gluteal ulcers status post #2 following surgical debridement. Patients ulcerations remain shallow and showed good blood supply during surgical debridement. With regular repositioning and adequate wound care, these wounds will heal nicely. Continue I&D wound care. Wound care following. Added adaptic to help keep wound moist. Due to debilitating MS patient will require close care for regular repositioning and wound care as outpatient to ensure wound remains free of urine and feces. VTE Prophylaxis: Sub-Q Heparin (Unfractionated) Resuscitation Status: CPR: Attempt Resuscitation Attending Statement: I agree with Dr. Pyle's assessment and plan. TEREZA PYLE DO Jan 24, 2017 16:20 Hill Toledo MD Jan 27, 2017 09:09
[2017-01-24 21:42] VITALS: BP 100/60; PULSE 82; RESP 16; O2SAT 96
[2017-01-25] MEDS: 0.9% Sodium Chloride 1,000 ML IV SCH ×3 (00:40→21:59)
[2017-01-25] MEDS: oxyCODONE-Acetamin 5-325 mg Tablet PO PRN ×5 (00:40→20:16)
[2017-01-25] MEDS: Heparin 5,000 Unit/mL Inj SUBQ SCH ×3 (00:40→16:50)
[2017-01-25 05:14] VITALS: BP 121/77; PULSE 84; RESP 18; O2SAT 94
[2017-01-25] MEDS: Pantoprazole 40 mg ER24 Tablet PO SCH (05:41)
--- NOTE | 2017-01-25 06:36 | NUR ---
Activity/mentation Pt on bedrest this shift with q2hr turns/positioning. Pt does little to help with repositioning. Skin is very red with eczema/psoriasis and Pt states itches. Mupirocin oint being used. Pt wakes easily but is confused and mumbles and moans. Takes her a few minutes before she can answer questions appropriately and clearly. Pt does not follow a conversation and answers with one word or yes/no questions. Very pleasant and cooperative with care.
--- NOTE | 2017-01-25 08:24 | NUR ---
Social Work Note: Continued Discharge Planning Data& Assessment: SW met with pt and pt at bedside to discuss discharge planning. SW discussed the possibility of a referral being sent to [facility] as one of their specialities is wound care. Pt and pt emphasized the importance of staying close to home. Pt explained that if pt needs to go too far from home, they "might as well move to [place] where my daughter, a [employer], can help care for her." Pt and pt agreeable to [facility] [place] if necessary. SW to continue to follow. Plan: Anticipated discharge to SNF when medically ready pending acceptance. SW to continue to follow. ASHELY Caraballo
--- NOTE | 2017-01-25 09:01 | NUR ---
Faxed referral to [facility], [facility], [facility], [facility], [facility], [facility]. Updated INFORMATION TECHNOLOGY ANALYST Addendum: 01/25/17 at 1150 by JOSSIE TANNER [facility] can not accept based on drug use. Antoine would like to see all INFORMATION TECHNOLOGY ANALYST notes, current med list and then she can review with her Professor Of Chemical Engineering tomorrow [facility] would like a med list for this patient and would like to know weight for this patient.
--- NOTE | 2017-01-25 09:14 | PCM.PNMED ---
Subjective Date of Service Jan 25, 2017 Subjective Pt notes no acute complaints this morning. Denies any significant pains. Looking forward to getting home when possible. Exam Vital Signs Vital Sign - Last Date Time Temp Pulse Resp B/P Pulse Ox O2 Delivery O2 Flow Rate FiO2 01/25/17 05:14 36.4 84 18 121/77 94 Room Air 01/24/17 12:36 1.00 Intake and Output 01/24/17 01/24/17 01/25/17 Cumulative From/Thru 15:00 23:00 07:00 01/20/17 15:07 - 01/25/17 05:14 Intake Total 400 ml 1116 ml 96664 ml Output Total 2100 ml 3300 ml 98398 ml Balance -1700 ml -2184 ml 1104 ml Intake Oral 400 ml 300 ml 2200 ml IV Total 816 ml 91513 ml Output Urine Total 2100 ml 3300 ml 87038 ml # Bowel Movements 0 2 General: Alert, Oriented X3, Cooperative, No Acute Distress Mouth: Mucous Membr Moist/[place] Chest & Lungs: Clear to auscultation & percussion Cardiovascular: Regular Rate/Rhythm Abdomen: Non-tender, Non-distended Extremities: No cyanosis/clubbing/edma bilat, Other (Left calf in ITA wrap which was not removed. Dry/clean. ) Skin: Significant Lesions (Psoriatic type/scalling lesiosn notes on arms/hands / and neck along hairline. no ulcerated or infected in appearance. ) IVs and Medications Medications Reviewed: Medications were reviewed in detail Lab and Diagnostics Result Diagram: 01/24/17 0440 01/24/17 0440 X-Rays, CTs and MRIs X-RAY CHEST IMPRESSION: Negative chest. No acute cardiopulmonary process is suspected. Dictated and approved by: Aleexy Babin M.D. on 01/20/2017 at 15:27 12-lead ECG Sinus rhythm with a rate of 95, normal axis, P waves before each QRS, normal R wave progression, slight ST segment depression in leads V4-5 Assessment & Plan Dunia Jerez is a very unfortunate 51 year old female with history of multiple sclerosis, and severe psoriasis, who presented to Emergency Department with extensive sacral perineal and lower extremity decubitus secondary to prolonged exposure to stool and inability to reposition herself, she also has venous stasis changes in the left lower extremity skin, with breakdown involving the left posterior calf and dorsal foot. She was recently treated at [facility] pseudomonal urinary tract infection and MRSA wound infection. Patient was discharged on 10 days of amoxicillin which she completed 4 days ago. At [facility] Patient was found to have elevated troponin, was tachycardic, and somnolent frequently dozing off and failing to respond to questioning. She complained of severe 10/10 pain secondary to her skin wounds. [facility] burn center was consulted by the Emergency Department and they recommended Silvadene diapers. Wound care was consulted, made recommendations and dressed wounds. Patient was admitted to the hospital for severe pain, worsening bedsores, and cellulitis. 1. Sepsis, present on admission. Resolved - Initial Vital signs in the Emergency Department: Temperature 36.8, pulse 104, blood pressure 120/72, respiratory rate 18, 99% on room air. White blood count 14.7, PMNs 82.2% - Patient was diagnosed on 12/26/2016 with a Pseudomonas UTI at [facility]. Patient has chronic open wounds. - UA: negative UA., normal lactic acid, normal procalcitonin - Blood cultures no growth 2, MRSA nasal PCR negative - Per infectious disease recommendation, we will discontinue vancomycin, meropenem and clindamycin and start her on linesolid, 600 mg by mouth twice a day - Start the patient on mupirocin ointment to the nares twice a day - As noted above, condition now improving, treated with oral antibiotic therapy. 2.Decubitus Ulcers, chronic, present on admission, status post surgical debridement. Active - Extensive involvement of the perineal area which appears red and raw and reminiscent of a burn injury. Bilateral buttock pressure ulcers, with prominent eschar of the right buttock. Left lower extremity calf and dorsal foot decubitus. - Per [facility] note patient's wounds and "Urine mina" were present during that admission. - Was recently hospitalized [facility] between 12/26/16 and 01/03/17. At [facility] patient had wound culture which grew Pseudomonas and MRSA. Patient was treated with Vanco and Zosyn. - Per patient's 's reports patients skin wounds have worsened since being discharged from [facility]. - Patient is a history of multiple sclerosis with multiple chronic bedsores. - Patient's daughter is a CLAIM SPECIALIST and has adequate home environment to care for the patient, and may be taking patient and her to live with her after discharge. - Wound care is following patient on outpatient status. - In the Emergency Department Cordero catheter was placed - Social work consult as patient likely the in need of SNF placement on discharge if patient's daughter is unable to care for her. - A P500 bed was ordered for the patient - Silvadene diapers per [facility] burn center recommendation. We will wait on this as wound recommends no barrier to [place] area at this time. - left leg ulcer: wrapped using xeroform, kerlix and surgilast, this can be changed by nursing daily. - I would recommend no brief on this patient to allow air flow to this skin and treat skin in the meantime with shield wipes daily after pericare. - Surgical debridement done yesterday, 01/22/[address] Toledo: cutaneous and subcutaneous debridement of sacral and gluteal closed decubitus ulcers - Per infectious disease recommendation, discontinued vancomycin, meropenem and clindamycin - Continue linesolid, 600 mg by mouth twice a day - Discontinued intravenous dilaudid. Resume home percocet 5-325 mg, 1-2 tablets every 4 hours as needed for pain 3. Bilateral Leg Cellulitis, present on admission. Active - Patient is skin breakdown of left lower extremity, with associated erythema extending to the distal toes. Left lower extremity was bandaged so assessment was difficult however right lower extremity showed moderate degree of erythema as well. The bilateral involvement brings into question as to whether or not cellulitis truly is the correct diagnosis. However per [facility] note patient had received Ancef and showed significant 30-40% improvement overnight of her cellulitis while at their facility. - Differential diagnosis occludes worsening stasis dermatitis, versus other inflammatory process such as her worsening psoriasis. - Of note patient does have history of stasis dermatitis. - Left lower extremity was bandaged so assessment was difficult however right lower extremity showed moderate degree of erythema. - Antibiotic and wound care as above. 4. Elevated troponin, present on admission. Active - Most likely due to demand ischemia from sepsis - Denies chest pain, heart palpitations, shortness of breath, diaphoresis - EKG showed sinus rhythm with a rate of 95, normal axis, P waves before each QRS, normal R-wave progression, slight [address] segment depression leads V4-5. - surgeon evaluated and she needs debridement.ACS unlikely.likely demand ischemia from sepsis.benefit of source control of infection with debridement overweighs risk of ACS. - Continue to monitor 5. Acute encephalopathy, present on admission. resolved - Patient is alert and oriented to person place and month and year however she has diminished from her normal baseline mentation over the past 3-4 days. Patient does become somnolent at times and doses off in interview. - Etiologies include infectious, severe pain, dehydration, illicit drug abuse to include methamphetamine, THC, and opiates. 6. Methamphetamine abuse, present on admission. Active - Urine tox returned positive for methamphetamine. 7. Psoriasis, chronic, present on admission. Active - Dermatology follow up as an outpatient 8. Multiple Sclerosis diagnosed in 2003, present on admission. Active - Followed by Dr. Alvarado, Neurologist, was last seen 1 year ago 9. Anemia, normocytic hypochromic ,present on admission. Active - H/H 9.8/31.3, MCV 84.1, MCH 26.3, MCHC 31.3 Chronic issues: # Degenerative Disc Disease - We will hold patient's outpatient Percocet 02/08/2025 milligrams tablets - Will start IV Dilaudid 0.5-1 mg every 4 hours when necessary # Psoriasis, severe, diffuse, present on admission, active - She would likely benefit from follow-up with dermatology as an outpatient. # Stasis Dermatitis # Chronic lymphedema - We will hold off on giving Lasix as patient appears dry - We will defer to wound care for recommendations for bandaging over wrapping the lower extremities. Disposition: Ppending hospital course and SNF placement. PCP: Dr. Artur López Contact: Aguilar patient's Pain Evaluation: Adequate Pain Control GI Prophylaxis: Proton Pump Inhibitor VTE Prophylaxis: Sub-Q Heparin (Unfractionated) VTE Mechanical Devices: Intermittant Pneumatic CD Resuscitation Status: CPR: Attempt Resuscitation Time spent 25 minutes Andrew Soto DO Jan 25, 2017 09:14
[2017-01-25] MEDS: Mupirocin 2% 22 Gm Ointment NASAL SCH ×2 (11:06→20:17)
[2017-01-25 15:34] VITALS: BP 108/65; PULSE 99; RESP 18; O2SAT 98
--- NOTE | 2017-01-25 15:46 | NUR ---
Expedited Referral faxed into [facility] for [facility]. ASHELY Ordonez
--- NOTE | 2017-01-25 16:29 | NUR ---
Social Work Note: Continued Discharge Planning SW spoke with APS criminal investigator customs Jose ([phone]) who is assigned to pt and plans to follow up with her during this hospitalization. SW to continue to follow. ASHELY Caraballo
[2017-01-25 19:30] VITALS: BP 101/58; PULSE 90; RESP 16; O2SAT 97
--- NOTE | 2017-01-25 19:46 | NUR ---
Mentation Pain Pt c/o 10/10 pain most of time. Pt appears to have contractions and selomness most of time. Although at times when walking into room or looking through window pt is noted to be moving well, performing ADLs with upper extremities. As soon as staff walks into room pt closes eyes and slowly responds to questions. Other times pt responds well to questions. Will continue to monitor pain.
[2017-01-26] MEDS: Heparin 5,000 Unit/mL Inj SUBQ SCH ×3 (01:00→17:15)
--- NOTE | 2017-01-26 04:56 | NUR ---
pain pt c/o 9-07/18 pain in her buttock down to her toes. she was given percocet and baclofen once at the start of the shift. sicne then pt has been sleeping. pt would wake up briefly and say she was in pain, but was unable to keep her eyes open or to answer questions about the nature of her pain. therefore nurse did not administer any more pain medication. hourly rounding continues.
[2017-01-26 05:25] VITALS: BP 153/88; PULSE 84; RESP 18; O2SAT 99
[2017-01-26] MEDS: Pantoprazole 40 mg ER24 Tablet PO SCH (06:19)
[2017-01-26] MEDS: oxyCODONE-Acetamin 5-325 mg Tablet PO PRN ×4 (06:19→23:30)
[2017-01-26] MEDS: 0.9% Sodium Chloride 1,000 ML IV SCH ×2 (07:47→17:16)
[2017-01-26] MEDS: Mupirocin 2% 22 Gm Ointment NASAL SCH ×2 (07:48→21:39)
--- NOTE | 2017-01-26 09:41 | PCM.PNSURG ---
Subjective Date of Service: Jan 26, 2017 Date of Service: Jan 26, 2017 Visit Information: Reason for Visit Sacral Decubitis,General Weakness,Elevated Troponi Surgery/Surgery Date Post-Op Day # Date of Admission: Jan 20, 2017 at 21:20 Hospital Day # Subjective: Patient was sitting up in bed. Greatly improved condition from 2 days ago. She was talkative, making jokes, laughing. Eating breakfast. No acute distress. Reports pain very well controlled. Denies nausea, vomiting, constipation, diarrhea, shortness of breath, chest pain. Objective Objective General: Patient is alert and oriented to person to place. Patient in no acute distress with passive and active movement. sitting up in bed. HEENT: NC/AT, eyes noninjected, pupils equally round, neck tender to palpation. Lungs: CTAB anteriorly, no wheezes, no rhonchi, no crackles,. Heart: Regular rate and rhythm, no murmur, no rub,. Abdomen: Soft, nontender, nondistended, bowel sounds not heard, no rebound, no guarding, Genitourinary: no suprapubic tenderness, Cordero catheter in place and draining clear yellow-colored urine. Extremities: Rigid extremities. Pulses equal and symmetric upper/lower extremity including radial and dorsalis pedis, bilateral lower extremity edema present. Left lower extremity is bandaged with new clean dry bandage. Neurologic: improved active range of motion. Psyc: much improved from 2 days ago. Skin: Diffuse psoriatic plaques from head to toe but improving with adequate daily care. Plan assess sacral and gluteal wound with wound care today. Vital Sign- Last 8 Hours Date Time Temp Pulse Resp B/P Pulse Ox O2 Delivery O2 Flow Rate FiO2 01/26/17 05:25 36.6 84 18 153/88 99 Room Air Intake and Output- Last 8 Hour 01/26/17 Cumulative From/Thru 07:00 01/20/17 15:07 - 01/26/17 06:19 Intake Total 677 ml 52498 ml Output Total 3500 ml 37001 ml Balance -2823 ml -2703 ml Intake Oral 677 ml 4214 ml IV Total 18382 ml Output Urine Total 3500 ml 39587 ml # Bowel Movements 0 2 Result Diagram: 01/24/1743901/24/17439 Assessment & Plan Impression Dunia Jerez is a very unfortunate 51 y/o F with history of MS, and severe psoriasis, and sacral / gluteal ulcers status post #4 following surgical debridement. Problems: Plan yesterday with wound care, ulcerations remain shallow with active bleeding with dressing change.Wound care following. Added adaptic to help keep wound moist yesterday with decreased dressing saturation overnight. Continue I&D wound care. With regular repositioning and adequate wound care, these wounds will heal nicely. Due to debilitating MS patient will require close care for regular repositioning and wound care as outpatient to ensure wound remains free of urine and feces. VTE Prophylaxis: Sub-Q Heparin (Unfractionated) Resuscitation Status: CPR: Attempt Resuscitation Attending Statement: I agree with Dr. Pyle's assessment and plan. Appreciate montessori preschool teacher following. TEREZA PYLE DO Jan 26, 2017 09:41 Hill Toledo MD Jan 28, 2017 17:39
--- NOTE | 2017-01-26 10:49 | NUR ---
[facility] is unable to accept patient Ruby Machado and [facility] also unable to accept patient. Left message for Marly LUND at [facility] Swing bed unit. Updated [employer] BPM ARCHITECT Addendum: 01/26/17 at 1133 by OJSSIE TANNER CM Faxed updated information to Jaime RODRÍGUEZ and [facility] per request of both admissions coordinators. Updated [employer] BPM ARCHITECT
--- NOTE | 2017-01-26 10:57 | PCM.PNMED ---
Subjective Date of Service Jan 26, 2017 Subjective Pt feeling overall well, some discomfort/pain in sacral region but not acute complaints/changes overnight. Denies fever/chills/sweats. Exam Vital Signs Vital Sign - Last Date Time Temp Pulse Resp B/P Pulse Ox O2 Delivery O2 Flow Rate FiO2 01/26/17 05:25 36.6 84 18 153/88 99 Room Air 01/24/17 12:36 1.00 Intake and Output 01/25/17 01/25/17 01/26/17 Cumulative From/Thru 14:59 22:59 06:59 01/20/17 15:07 - 01/26/17 06:19 Intake Total 1386 ml 2280 ml 677 ml 33263 ml Output Total 2350 ml 2300 ml 3500 ml 60131 ml Balance -964 ml -20 ml -2823 ml -2703 ml Intake Oral 237 ml 1100 ml 677 ml 4214 ml IV Total 1149 ml 1180 ml 99442 ml Output Urine Total 2350 ml 2300 ml 3500 ml 45548 ml # Bowel Movements 0 0 0 2 Exam General: Alert, Oriented X3, Cooperative, No Acute Distress Mouth: Mucous Membranes Moist/[place] Chest & Lungs: Clear to auscultation & percussion Cardiovascular: Regular Rate/Rhythm Abdomen: Non-tender, Non-distended Extremities: No cyanosis/clubbing/edema bilaterally, Left calf in ITA wrap which was not removed. Dry/clean. Skin: Significant Lesions: Psoriatic type/scalling lesions notes on arms/hands / legs and neck along hairline. no ulcerated or infected in appearance. ) IVs and Medications Medications Reviewed: Medications were reviewed in detail Lab and Diagnostics Result Diagram: 01/24/17 0440 01/24/17 0440 X-Rays, CTs and MRIs X-RAY CHEST IMPRESSION: Negative chest. No acute cardiopulmonary process is suspected. Dictated and approved by: Alexey Babin M.D. on 01/20/2017 at 15:27 12-lead ECG Sinus rhythm with a rate of 95, normal axis, P waves before each QRS, normal R wave progression, slight ST segment depression in leads V4-5 Assessment & Plan Dunia Jerez is a very unfortunate 51 year old female with history of multiple sclerosis, and severe psoriasis, who presented to Emergency Department with extensive sacral perineal and lower extremity decubitus secondary to prolonged exposure to stool and inability to reposition herself, she also has venous stasis changes in the left lower extremity skin, with breakdown involving the left posterior calf and dorsal foot. She was recently treated at [facility] pseudomonal urinary tract infection and MRSA wound infection. Patient was discharged on 10 days of amoxicillin which she completed 4 days ago. At [facility] Patient was found to have elevated troponin, was tachycardic, and somnolent frequently dozing off and failing to respond to questioning. She complained of severe 10/10 pain secondary to her skin wounds. [facility] burn center was consulted by the Emergency Department and they recommended Silvadene diapers. Wound care was consulted, made recommendations and dressed wounds. Patient was admitted to the hospital for severe pain, worsening bedsores, and cellulitis. 1. Sepsis, present on admission. Resolved - Initial Vital signs in the Emergency Department: Temperature 36.8, pulse 104, blood pressure 120/72, respiratory rate 18, 99% on room air. White blood count 14.7, PMNs 82.2% - Patient was diagnosed on 12/26/2016 with a Pseudomonas UTI at [facility]. Patient has chronic open wounds. - UA: negative UA., normal lactic acid, normal procalcitonin - Blood cultures no growth 2, MRSA nasal PCR negative - Per infectious disease recommendation, we will discontinue vancomycin, meropenem and clindamycin and start her on linesolid, 600 mg by mouth twice a day - Start the patient on mupirocin ointment to the nares twice a day - As noted above, condition now improving, treated with oral antibiotic therapy currently resolved. 2.Decubitus Ulcers, chronic, present on admission, status post surgical debridement. Active - Extensive involvement of the perineal area which appears red and raw and reminiscent of a burn injury. Bilateral buttock pressure ulcers, with prominent eschar of the right buttock. Left lower extremity calf and dorsal foot decubitus. - Per [facility] note patient's wounds and "Urine mina" were present during that admission. - Was recently hospitalized in [facility] between 12/26/16 and 01/03/17. At [facility] patient had wound culture which grew Pseudomonas and MRSA. Patient was treated with Vanco and Zosyn. - Per patient's 's reports patients skin wounds have worsened since being discharged from [facility]. - Patient is a history of multiple sclerosis with multiple chronic bedsores. - Patient's daughter is a FLOOR SUPERVISOR and has adequate home environment to care for the patient, and may be taking patient and her to live with her after discharge. - Wound care is following patient on outpatient status. - In the Emergency Department Cordero catheter was placed - Social work consult as patient likely the in need of SNF placement on discharge if patient's daughter is unable to care for her. - A P500 bed was ordered for the patient - Silvadene diapers per [facility] burn center recommendation. We will wait on this as wound recommends no barrier to [place] area at this time. - left leg ulcer: wrapped using xeroform, kerlix and surgilast, this can be changed by nursing daily. - I would recommend no brief on this patient to allow air flow to this skin and treat skin in the meantime with shield wipes daily after pericare. - Surgical debridement done yesterday, 01/22/[address] Toledo: cutaneous and subcutaneous debridement of sacral and gluteal closed decubitus ulcers - Per infectious disease recommendation, discontinued vancomycin, meropenem and clindamycin - Continue linesolid, 600 mg by mouth twice a day - Discontinued intravenous dilaudid. Resume home percocet 5-325 mg, 1-2 tablets every 4 hours as needed for pain - Pt in need of significant nursing care to prevent relapse of decubitus ulceration. She does not have capacity to care for self outside of nursing faclity at this time given coomorbid condition (MS), making placement only reasonable option at this time with goal of full recovery from condition. 3. Bilateral Leg Cellulitis, present on admission. Active - Patient is skin breakdown of left lower extremity, with associated erythema extending to the distal toes. Left lower extremity was bandaged so assessment was difficult however right lower extremity showed moderate degree of erythema as well. The bilateral involvement brings into question as to whether or not cellulitis truly is the correct diagnosis. However per [facility] note patient had received Ancef and showed significant 30-40% improvement overnight of her cellulitis while at their facility. - Differential diagnosis occludes worsening stasis dermatitis, versus other inflammatory process such as her worsening psoriasis. - Of note patient does have history of stasis dermatitis. - Left lower extremity was bandaged so assessment was difficult however right lower extremity showed moderate degree of erythema. - Antibiotic and wound care as above. 4. Elevated troponin, present on admission. Active - Most likely due to demand ischemia from sepsis - Denies chest pain, heart palpitations, shortness of breath, diaphoresis - EKG showed sinus rhythm with a rate of 95, normal axis, P waves before each QRS, normal R-wave progression, slight [address] segment depression leads V4-5. - surgeon evaluated and she needs debridement.ACS unlikely.likely demand ischemia from sepsis.benefit of source control of infection with debridement overweighs risk of ACS. - Continue to monitor 5. Acute encephalopathy, present on admission. resolved - Patient is alert and oriented to person place and month and year however she has diminished from her normal baseline mentation over the past 3-4 days. Patient does become somnolent at times and doses off in interview. - Etiologies include infectious, severe pain, dehydration, illicit drug abuse to include methamphetamine, THC, and opiates. 6. Methamphetamine abuse, present on admission. Active - Urine tox returned positive for methamphetamine. 7. Psoriasis, chronic, present on admission. Active - Dermatology follow up as an outpatient 8. Multiple Sclerosis diagnosed in 2003, present on admission. Active - Followed by Dr. Alvarado, Neurologist, was last seen 1 year ago 9. Anemia, normocytic hypochromic ,present on admission. Active - H/H 9.8/31.3, MCV 84.1, MCH 26.3, MCHC 31.3 Chronic issues: # Degenerative Disc Disease - We will hold patient's outpatient Percocet 02/08/2025 milligrams tablets - Will start IV Dilaudid 0.5-1 mg every 4 hours when necessary # Psoriasis, severe, diffuse, present on admission, active - She would likely benefit from follow-up with dermatology as an outpatient. # Stasis Dermatitis # Chronic lymphedema - We will hold off on giving Lasix as patient appears dry - We will defer to wound care for recommendations for bandaging over wrapping the lower extremities. Disposition: Ppending hospital course and SNF placement. PCP: Dr. Artur López Contact: Aguilar patient's Pain Evaluation: Adequate Pain Control GI Prophylaxis: Proton Pump Inhibitor VTE Prophylaxis: Sub-Q Heparin (Unfractionated) VTE Mechanical Devices: Intermittant Pneumatic CD Resuscitation Status: CPR: Attempt Resuscitation Time spent 25 minutes Andrew Soto DO Jan 26, 2017 10:57
--- NOTE | 2017-01-26 11:43 | NUR ---
Dressing change Dressing change on the bottom/ Scaral Decubitous as ordered. Wound care nurse aware.
--- NOTE | 2017-01-26 12:14 | NUR ---
Wound care nurse Wound care nurse at bed side for dressing changes to leg and sacral dressing. PRN percocet one tablet given as ordered with effective results prior to dressing changes by wound care nurse. All linen changed after wound care. patient is eating lunch after wound care done.
[2017-01-26 12:16] VITALS: BP 118/73; PULSE 91; RESP 20; O2SAT 98
--- NOTE | 2017-01-26 13:48 | NUR ---
Social Work: Continued Discharge Planning: Data & Assessment: Flooring Grader spoke with patient's significant other, Aguilar Massey [phone], to discuss discharge planning. Aguilar Massey stated that if the patient discharges home with out patient wound care instead of a to a SNF he will be able to transport her to outpatient wound care if needed. Patient's S/O stated that he was unable to taked the patient previously because he had a heart attack. Patient will either discharge home with HH and outpatient wound care or to a SNF. SW will continue to follow and assist patient throughout stay. Plan: Patient will either discharge home with HH and outpatient wound care or to a SNF. SW will continue to follow and assist patient throughout stay. Crystal Parmar, VIOLET, ACM
--- NOTE | 2017-01-26 14:01 | NUR ---
NUTRITION FOLLOW-UP: ASSESS: 51 YO female admitted for extensive sacral perineal and lower extremity decubitus. Wound care is following and she is POD 4 surgical debridement of wounds. Per wound care note, wounds are improving. She is on a dysphagia mechanical diet with good PO at 90-100% of meals. Pt reported good appetite and she continues to like her Ensure and is drinking the Stevo with no issues. PMHx: MS, chronic LLE wounds, degenerative disk disease, psoriasis, stasis dermatitis, chronic lymphedema, substance abuse (meth, opiates). DIET: Dysphagia Mechanical, PO 90-100% LABS: (last labs 01/24) Peanut Sheller .47, Glu 122, Ca 8.2, Alb 2.4 MEDICATIONS: Reviewed. GI symptoms / stool: BM x 2, 01/21 Skin Integrity: sacral / gluteal ulcers, wound care and surgery following-wounds are improving ANTHROPOMETRICS: Current Wt: 74.5 kg BMI: 26.9 kg/m2, admit wt 70.5kg ESTIMATED NEEDS (WOUNDS): Calories: 2115 - 2468 kcal (30 - 35 kcal / kg BW) Protein: 105 - 125 g protein (1.5 - 1.8 g / kg BW) NUTRITION DIAGNOSIS: 1) Increased nutrient needs related to multiple skin issues, as evidenced by pt with sacral / gluteal ulcers and need for I&D of wounds.--IMPROVING INTERVENTION: 1) Continue Ensure on all trays. Pt reported that she liked the Ensure 2) Continue Stevo with Lemon [place] Soda on L and D trays. Pt reported no issues with the Stevo. MONITOR/EVALUATE: Diet tolerance, PO intake, wt, wounds, labs, GI/nutrition status. Follow up per moderate nutrition risk guidelines.
--- NOTE | 2017-01-26 16:28 | NUR ---
Wound Care Patient seen at bedside for dressing changes. Left lower leg stasis ulceration continues to improve, today posterior wound after cleaning with saline and gauze measured approx 10 cm L x 4 cm W x 0.1 cm D. This wound was redressed with Xeroform, kerlix wrap and surgilast stocking. Ulcerations at buttocks and sacrum are unchanged in dimension and remain friable with wound care oozing blood easily with dressing changes, using adaptic to decrease trauma at the wound bed with dressing change and applying abd pads to absorb drainage. Patient really needs to avoid lying on her back at this time for these sacral and buttock wounds to heal. Patient will certainly need nursing care if discharged home and follow up at the wound center..
--- NOTE | 2017-01-26 16:36 | NUR ---
Spoke with [place] [facility] [place]. When patient was there receiving acute care she left AMA. They do not feel they can meet her needs and the previous AMA is not in the favor of the patient. Updated PIGGYBACK CLERK and PIGGYBACK CLERK Chief Development Officer
[2017-01-26 19:55] VITALS: BP 115/51; PULSE 95; RESP 18; O2SAT 99
[2017-01-27] MEDS: Heparin 5,000 Unit/mL Inj SUBQ SCH ×3 (00:23→17:00)
--- NOTE | 2017-01-27 03:06 | NUR ---
BM/Wound Pt. had a large BM this shift. Dressing on sacrum needed to be changed. Adaptic and ABD placed like before. Pt. is being turned q2 hours to prevent further breakdown of buttocks and sacrum. Will continue to monitor.
[2017-01-27] MEDS: 0.9% Sodium Chloride 1,000 ML IV SCH (03:32)
[2017-01-27 04:43] VITALS: BP 122/77; PULSE 89; RESP 16; O2SAT 95
[2017-01-27] MEDS: Pantoprazole 40 mg ER24 Tablet PO SCH (05:54)
[2017-01-27 06:44] LABS: BASOPHILS % (AUTO) 0.5 % (0-3); EOSINOPHILS % (AUTO) 5.5 % (0-5); MONOCYTES % (AUTO) 9.7 % (4-12); Mean Corpuscular Hemoglobin 25.4 pg (27.0-35.0); NEUTROPHILS % (AUTO) 54.6 % (40-74); Platelet Count 451 bil/L (150-400)
[2017-01-27] MEDS: Mupirocin 2% 22 Gm Ointment NASAL SCH ×2 (08:31→19:44)
[2017-01-27] MEDS: oxyCODONE-Acetamin 5-325 mg Tablet PO PRN ×4 (08:39→21:48)
--- NOTE | 2017-01-27 10:59 | NUR ---
Dressing change Dressing on the bottom changed with adaptic and ABD pain after [place] care. Turning and repositioning to prevent further breakdown. increased pain prior to dressing change and PRN pain medication with effective results. patient is sleeping comfortably at this time on her left side to off load pressure area. will continue to monitor.
[2017-01-27 11:05] VITALS: BP 124/75; PULSE 92; RESP 18; O2SAT 97
--- NOTE | 2017-01-27 11:56 | PCM.PNMED ---
Subjective Date of Service Jan 27, 2017 Subjective Awakens to voice but does not speak to me, apparently no new complaints Exam Vital Signs Vital Sign - Last Date Time Temp Pulse Resp B/P Pulse Ox O2 Delivery O2 Flow Rate FiO2 01/27/17 11:05 36.7 92 18 124/75 97 Room Air 01/24/17 12:36 1.00 Intake and Output 01/26/17 01/26/17 01/27/17 Cumulative From/Thru 15:00 23:00 07:00 01/20/17 15:07 - 01/27/17 05:57 Intake Total 2718 ml 1780 ml 73059 ml Output Total 5000 ml 3950 ml 36867 ml Balance -2282 ml -2170 ml -7155 ml Intake Oral 1790 ml 550 ml 6554 ml IV Total 928 ml 1230 ml 85455 ml Output Urine Total 5000 ml 3950 ml 12540 ml # Bowel Movements 1 3 Exam General: Alert, no acute distress Heart: Regular Lungs: Clear anteriorly and laterally Abdomen: Soft, non-tender Extremities: No pedal edema Wounds: Dressing is not removed for examination IVs and Medications Medications Reviewed: Medications were reviewed in detail Lab and Diagnostics Result Diagram: 01/27/17 0557 01/27/17 0557 X-Rays, CTs and MRIs X-RAY CHEST IMPRESSION: Negative chest. No acute cardiopulmonary process is suspected. Dictated and approved by: Alexey Babin M.D. on 01/20/2017 at 15:27 12-lead ECG Sinus rhythm with a rate of 95, normal axis, P waves before each QRS, normal R wave progression, slight ST segment depression in leads V4-5 Assessment & Plan Dunia Jerez is a very unfortunate 51 year old female with history of multiple sclerosis, and severe psoriasis, who presented to Emergency Department with extensive sacral perineal and lower extremity decubitus secondary to prolonged exposure to stool and inability to reposition herself, she also has venous stasis changes in the left lower extremity skin, with breakdown involving the left posterior calf and dorsal foot. She was recently treated at [facility] pseudomonal urinary tract infection and MRSA wound infection. Patient was discharged on 10 days of amoxicillin which she completed 4 days ago. At [facility] Patient was found to have elevated troponin, was tachycardic, and somnolent frequently dozing off and failing to respond to questioning. She complained of severe 10/10 pain secondary to her skin wounds. [facility] burn center was consulted by the Emergency Department and they recommended Silvadene diapers. Wound care was consulted, made recommendations and dressed wounds. Patient was admitted to the hospital for severe pain, worsening bedsores, and cellulitis. 1. Sepsis, present on admission. Resolved - Initial Vital signs in the Emergency Department: Temperature 36.8, pulse 104, blood pressure 120/72, respiratory rate 18, 99% on room air. White blood count 14.7, PMNs 82.2% - Patient was diagnosed on 12/26/2016 with a Pseudomonas UTI at [facility]. Patient has chronic open wounds. - UA: negative UA., normal lactic acid, normal procalcitonin - Blood cultures no growth 2, MRSA nasal PCR negative - Per infectious disease recommendation discontinued vancomycin, meropenem and clindamycin and started her on linesolid, 600 mg by mouth twice a day through January 30 to complete one week - Start the patient on mupirocin ointment to the nares twice a day 2.Decubitus Ulcers, chronic, present on admission, status post surgical debridement. Active - Extensive involvement of the perineal area which appeared red and raw and reminiscent of a burn injury. Bilateral buttock pressure ulcers, with prominent eschar of the right buttock. Left lower extremity calf and dorsal foot decubitus. - Per [facility] note patient's wounds and "Urine mina" were present during that admission. - Was recently hospitalized in [facility] between 12/26/16 and 01/03/17. At [facility] patient had wound culture which grew Pseudomonas and MRSA. Patient was treated with Vanco and Zosyn. - Per patient's 's reports patients skin wounds have worsened since being discharged from [facility]. - Patient is a history of multiple sclerosis with multiple chronic bedsores. - Patient's daughter is a TINSMITH HELPER and has adequate home environment to care for the patient, and may be taking patient and her to live with her after discharge. - Wound care is following patient on outpatient status. - In the Emergency Department Cordero catheter was placed - A P500 bed was ordered for the patient - Silvadene diapers per [facility] burn center recommendation. We will wait on this as wound recommends no barrier to [place] area at this time. - left leg ulcer: wrapped using xeroform, kerlix and surgilast, this can be changed by nursing daily. - I would recommend no brief on this patient to allow air flow to this skin and treat skin in the meantime with shield wipes daily after pericare. - Surgical debridement done 01/22/[address] Toledo: cutaneous and subcutaneous debridement of sacral and gluteal closed decubitus ulcers - Per infectious disease recommendation discontinued vancomycin, meropenem and clindamycin and started her on linesolid, 600 mg by mouth twice a day through January 30 to complete one week - Discontinued intravenous dilaudid. Resumed home percocet 5-325 mg, 1-2 tablets every 4 hours as needed for pain - Pt in need of significant nursing care to prevent relapse of decubitus ulceration. She does not have capacity to care for self outside of nursing faclity at this time given coomorbid condition (MS), making placement only reasonable option at this time with goal of full recovery from condition. Social work consult as patient likely the in need of SNF placement on discharge if patient's daughter is unable to care for her but no one will accept her due to Meth and left AMA from [facility] recently 3. Bilateral Leg Cellulitis, present on admission. Active - skin breakdown of lower extremities, with associated erythema extending to the distal toes. The bilateral involvement brings into question as to whether or not cellulitis truly is the correct diagnosis. However per [facility] note patient had received Ancef and showed significant 30-40% improvement overnight of her cellulitis while at their facility. - Differential diagnosis occludes worsening stasis dermatitis, versus other inflammatory process such as her worsening psoriasis. - Of note patient does have history of stasis dermatitis. - Antibiotic and wound care as above. 4. Elevated troponin, present on admission. Active - Most likely due to demand ischemia from sepsis - Denies chest pain, heart palpitations, shortness of breath, diaphoresis - EKG showed sinus rhythm with a rate of 95, normal axis, P waves before each QRS, normal R-wave progression, slight [address] segment depression leads V4-5. - surgeon evaluated and she needs debridement.ACS unlikely.likely demand ischemia from sepsis.benefit of source control of infection with debridement overweighs risk of ACS. 5. Acute encephalopathy, present on admission. resolved - Patient is alert and oriented to person place and month and year however she has diminished from her normal baseline mentation over the past 3-4 days. Patient does become somnolent at times and doses off in interview. - Etiologies include infectious, severe pain, dehydration, illicit drug abuse to include methamphetamine, THC, and opiates. 6. Methamphetamine abuse, present on admission. Active - Urine tox returned positive for methamphetamine. 7. Psoriasis, chronic, present on admission. Active - Dermatology follow up as an outpatient 8. Multiple Sclerosis diagnosed in 2003, present on admission. Active - Followed by Dr. Alvarado, Neurologist, was last seen 1 year ago 9. Anemia, normocytic hypochromic ,present on admission. Active. Stable Chronic issues: # Degenerative Disc Disease # Psoriasis, severe, diffuse, present on admission, active - She would likely benefit from follow-up with dermatology as an outpatient. # Stasis Dermatitis # Chronic lymphedema Disposition: Pending hospital course and SNF placement. If no SNF will accept her she may need longer stay to prevent early readmission. PCP: Dr. Artur López Contact: Aguilar patient's GI Prophylaxis: Proton Pump Inhibitor VTE Prophylaxis: Sub-Q Heparin (Unfractionated) VTE Mechanical Devices: Intermittant Pneumatic CD Resuscitation Status: CPR: Attempt Resuscitation Bárbara Dickerson MD Jan 27, 2017 11:56 Resuscitation Status: CPR: Attempt Resuscitation Bárbara Dickerson MD Jan 27, 2017 11:56 Resuscitation Status: CPR: Attempt Resuscitation Bárbara Dickerson MD Jan 27, 2017 11:56
--- NOTE | 2017-01-27 14:46 | NUR ---
Mentation patient is alert and oriented X3. Able to make needs known. Stable vital signs. PRN Percocet 2 tablets given 2 times so far this shift for increased pain 7-9/10 for chronic sacral wounds. Q2 turns and repositioning to prevent further skin breakdown. Physical therapy at bed side working with patient at this time. IV fluids have been discontinued per Red team hospitalist due to patient tolerating PO fluids and meals with out any difficulty. patient received ordered PO medications with out difficulty swallowing. Cordero patent and draining clear yellow urine with out difficulty. Will continue to monitor pain, vital signs, comfort, and safety.
--- NOTE | 2017-01-27 17:54 | NUR ---
Social Work: Continued Discharge Planning Lease Out Worker spoke with Guru in Wound Care and he reported that patient has an appointment scheduled at the wound clinic for February 08, [address] Toledo. SW also received a call from Jeremy at [facility] at [facility] stating that they are waiting to hear from patient's insurance for SNF approval. Patient will either discharge home with Rosey ROCHA and follow up at the wound clinic or discharge to SNF if approved by insurance. YUMIKO will continue to follow. Crystal Parmar, VIOLET, JESSICA
[2017-01-27 18:22] VITALS: BP 110/65; PULSE 86; RESP 18; O2SAT 97
[2017-01-27 20:20] VITALS: BP 100/58; PULSE 64; RESP 20; O2SAT 96
[2017-01-28] MEDS: Heparin 5,000 Unit/mL Inj SUBQ SCH ×3 (01:21→15:54)
[2017-01-28] MEDS: oxyCODONE-Acetamin 5-325 mg Tablet PO PRN ×4 (03:40→21:02)
[2017-01-28 04:36] VITALS: BP 120/75; PULSE 79; RESP 18; O2SAT 96
[2017-01-28] MEDS: Pantoprazole 40 mg ER24 Tablet PO SCH (05:37)
[2017-01-28] MEDS: Mupirocin 2% 22 Gm Ointment NASAL SCH ×2 (08:35→21:06)
--- NOTE | 2017-01-28 13:29 | NUR ---
Bed mobility/Dressing change Patient turned q2 in bed for wound healing. Extensive cleaning of yeasty areas and dressing change completed this am. Patient tolerated well. Dressed with adaptic and ABD pad for drainage.
[2017-01-28 13:46] VITALS: BP 94/54; PULSE 80; RESP 16; O2SAT 97
--- NOTE | 2017-01-28 15:40 | PCM.PNMED ---
Subjective Date of Service Jan 28, 2017 Subjective Complaining of significant leg muscle spasms and not getting relief with current dosing of baclofen and methocarbamol Exam Vital Signs Vital Sign - Last Date Time Temp Pulse Resp B/P Pulse Ox O2 Delivery O2 Flow Rate FiO2 01/28/17 13:46 36.7 80 16 94/54 97 Room Air 01/24/17 12:36 1.00 Intake and Output 01/27/17 01/27/17 01/28/17 Cumulative From/Thru 15:00 23:00 07:00 01/20/17 15:07 - 01/28/17 05:48 Intake Total 714 ml 1200 ml 432 ml 00407 ml Output Total 2200 ml 1520 ml 33884 ml Balance 714 ml -1000 ml -1088 ml -8529 ml Intake Oral 1200 ml 432 ml 8186 ml IV Total 714 ml 59319 ml Output Urine Total 2200 ml 1520 ml 68783 ml # Bowel Movements 0 3 Exam General: Alert and oriented, no acute distress Heart: Regular Lungs: Clear Abdomen: Soft, non-tender Extremities: No pedal edema IVs and Medications Medications Reviewed: Medications were reviewed in detail Lab and Diagnostics Result Diagram: 01/27/17 0557 01/27/17 0557 X-Rays, CTs and MRIs X-RAY CHEST IMPRESSION: Negative chest. No acute cardiopulmonary process is suspected. Dictated and approved by: Alexey Babin M.D. on 01/20/2017 at 15:27 12-lead ECG Sinus rhythm with a rate of 95, normal axis, P waves before each QRS, normal R wave progression, slight ST segment depression in leads V4-5 Assessment & Plan Dunia Jerez is a very unfortunate 51 year old female with history of multiple sclerosis, and severe psoriasis, who presented to Emergency Department with extensive sacral perineal and lower extremity decubitus secondary to prolonged exposure to stool and inability to reposition herself, she also has venous stasis changes in the left lower extremity skin, with breakdown involving the left posterior calf and dorsal foot. She was recently treated at [facility] pseudomonal urinary tract infection and MRSA wound infection. Patient was discharged on 10 days of amoxicillin which she completed 4 days ago. At [facility] Patient was found to have elevated troponin, was tachycardic, and somnolent frequently dozing off and failing to respond to questioning. She complained of severe 10/10 pain secondary to her skin wounds. [facility] burn center was consulted by the Emergency Department and they recommended Silvadene diapers. Wound care was consulted, made recommendations and dressed wounds. Patient was admitted to the hospital for severe pain, worsening bedsores, and cellulitis. 1. Sepsis, present on admission. Resolved - Initial Vital signs in the Emergency Department: Temperature 36.8, pulse 104, blood pressure 120/72, respiratory rate 18, 99% on room air. White blood count 14.7, PMNs 82.2% - Patient was diagnosed on 12/26/2016 with a Pseudomonas UTI at [facility]. Patient has chronic open wounds. - UA: negative UA., normal lactic acid, normal procalcitonin - Blood cultures no growth 2, MRSA nasal PCR negative - Per infectious disease recommendation discontinued vancomycin, meropenem and clindamycin and started her on linesolid, 600 mg by mouth twice a day through January 30 to complete one week - Started on mupirocin ointment to the nares twice a day 2.Decubitus Ulcers, chronic, present on admission, status post surgical debridement. Active - Extensive involvement of the perineal area which appeared red and raw and reminiscent of a burn injury. Bilateral buttock pressure ulcers, with prominent eschar of the right buttock. Left lower extremity calf and dorsal foot decubitus. - Per [facility] note patient's wounds and "Urine mina" were present during that admission. - Was recently hospitalized in [facility] between 12/26/16 and 01/03/17. At [facility] patient had wound culture which grew Pseudomonas and MRSA. Patient was treated with Vanco and Zosyn. - Per patient's 's reports patients skin wounds have worsened since being discharged from [facility]. - Patient is a history of multiple sclerosis with multiple chronic bedsores. - Patient's daughter is a COMPUTING MACHINE OPERATOR and has adequate home environment to care for the patient, and may be taking patient and her to live with her after discharge. - Wound care is following patient on outpatient status. - In the Emergency Department Cordero catheter was placed - A P500 bed was ordered for the patient - Silvadene diapers per [facility] burn center recommendation. We will wait on this as wound recommends no barrier to orville area at this time. - left leg ulcer: wrapped using xeroform, kerlix and surgilast, this can be changed by nursing daily. - I would recommend no brief on this patient to allow air flow to this skin and treat skin in the meantime with shield wipes daily after pericare. - Surgical debridement done 01/22/[address] Toledo: cutaneous and subcutaneous debridement of sacral and gluteal closed decubitus ulcers - Per infectious disease recommendation discontinued vancomycin, meropenem and clindamycin and started her on linesolid, 600 mg by mouth twice a day through January 30 to complete one week - Discontinued intravenous dilaudid. Resumed home percocet 5-325 mg, 1-2 tablets every 4 hours as needed for pain - Pt in need of significant nursing care to prevent relapse of decubitus ulceration. She does not have capacity to care for self outside of nursing faclity at this time given coomorbid condition (MS), making placement only reasonable option at this time with goal of full recovery from condition. Social work consult as patient likely the in need of SNF placement on discharge if patient's daughter is unable to care for her but difficult to place her due to Meth and left AMA from [facility] recently. However today reports that a SNF has been found that will accept her and now waiting until Monday to see if her insurance will authorize it 3. Bilateral Leg Cellulitis, present on admission. Active - skin breakdown of lower extremities, with associated erythema extending to the distal toes. The bilateral involvement brings into question as to whether or not cellulitis truly is the correct diagnosis. However per [facility] note patient had received Ancef and showed significant 30-40% improvement overnight of her cellulitis while at their facility. - Differential diagnosis occludes worsening stasis dermatitis, versus other inflammatory process such as her worsening psoriasis. - Of note patient does have history of stasis dermatitis. - Antibiotic and wound care as above. 4. Elevated troponin, present on admission. Active - Most likely due to demand ischemia from sepsis - Denies chest pain, heart palpitations, shortness of breath, diaphoresis - EKG showed sinus rhythm with a rate of 95, normal axis, P waves before each QRS, normal R-wave progression, slight [address] segment depression leads V4-5. - surgeon evaluated and felt she needed debridement which was done as ACS felt unlikely.likely demand ischemia from sepsis.benefit of source control of infection with debridement overweighs risk of ACS. 5. Acute encephalopathy, present on admission. resolved - Patient is alert and oriented to person place and month and year however she has diminished from her normal baseline mentation over the past 3-4 days. Patient does become somnolent at times and doses off in interview. - Etiologies include infectious, severe pain, dehydration, illicit drug abuse to include methamphetamine, THC, and opiates. 6. Methamphetamine abuse, present on admission. Active - Urine tox returned positive for methamphetamine. 7. Psoriasis, chronic, present on admission. Active - Dermatology follow up as an outpatient 8. Multiple Sclerosis diagnosed in 2003, present on admission. Active - Followed by Dr. Alvarado, Neurologist, was last seen 1 year ago - For leg muscle spasms will increase Baclofen to 10 mg and give TID scheduled and increase prn methocarbamol to 1500 mg 9. Anemia, normocytic hypochromic ,present on admission. Active. Stable Chronic issues: # Degenerative Disc Disease # Psoriasis, severe, diffuse, present on admission, active - She would likely benefit from follow-up with dermatology as an outpatient. # Stasis Dermatitis # Chronic lymphedema Disposition: Pending hospital course and SNF placement. If no SNF will accept her she may need longer stay to prevent early readmission. PCP: Dr. Artur López Contact: [facility] patient's GI Prophylaxis: Proton Pump Inhibitor VTE Prophylaxis: Sub-Q Heparin (Unfractionated) VTE Mechanical Devices: Intermittant Pneumatic CD Resuscitation Status: CPR: Attempt Resuscitation Bárbara Dickerson MD Jan 28, 2017 15:40
[2017-01-28 20:36] VITALS: BP 102/64; PULSE 89; RESP 16; O2SAT 99
[2017-01-29] MEDS: Heparin 5,000 Unit/mL Inj SUBQ SCH ×3 (00:14→16:41)
[2017-01-29] MEDS: oxyCODONE-Acetamin 5-325 mg Tablet PO PRN ×3 (03:49→18:04)
--- NOTE | 2017-01-29 04:03 | NUR ---
BM/ Turns/ Dressing change Pt. had a large BM later in shift. Pericare provided. Adaptic and ABD dressing soiled and changed. q2 turns implemented to protect skin. Percocet PO given for pain, as pt. states "pain increases with turning". Will continue to monitor.
[2017-01-29] MEDS: Pantoprazole 40 mg ER24 Tablet PO SCH (05:42)
[2017-01-29 05:55] VITALS: BP 120/78; PULSE 64; RESP 20; O2SAT 99
[2017-01-29] MEDS: Mupirocin 2% 22 Gm Ointment NASAL SCH ×2 (07:44→21:51)
--- NOTE | 2017-01-29 12:26 | PCM.PNMED ---
Subjective Date of Service Jan 29, 2017 Subjective Says leg muscle spasms improved after her doses of baclofen and methocarbamol increased yesterday Exam Vital Signs Vital Sign - Last Date Time Temp Pulse Resp B/P Pulse Ox O2 Delivery O2 Flow Rate FiO2 01/29/17 05:55 36.4 64 20 120/78 99 Room Air 01/24/17 12:36 1.00 Intake and Output 01/28/17 01/28/17 01/29/17 Cumulative From/Thru 15:00 23:00 07:00 01/20/17 15:07 - 01/29/17 05:55 Intake Total 1032 ml 850 ml 99316 ml Output Total 1500 ml 1700 ml 43919 ml Balance -468 ml -850 ml -9847 ml Intake Oral 1032 ml 850 ml 80252 ml IV Total 95715 ml Output Urine Total 1500 ml 1700 ml 65836 ml # Bowel Movements 0 0 3 Exam General: Alert and oriented, no acute distress Heart: Regular Lungs: Clear anteriorly and laterally Extremities: No pedal edema IVs and Medications Medications Reviewed: Medications were reviewed in detail Lab and Diagnostics Result Diagram: 01/27/17 0557 01/27/17 0557 X-Rays, CTs and MRIs X-RAY CHEST IMPRESSION: Negative chest. No acute cardiopulmonary process is suspected. Dictated and approved by: Alexey Babin M.D. on 01/20/2017 at 15:27 12-lead ECG Sinus rhythm with a rate of 95, normal axis, P waves before each QRS, normal R wave progression, slight ST segment depression in leads V4-5 Assessment & Plan Dunia Jerez is a very unfortunate 51 year old female with history of multiple sclerosis, and severe psoriasis, who presented to Emergency Department with extensive sacral perineal and lower extremity decubitus secondary to prolonged exposure to stool and inability to reposition herself, she also has venous stasis changes in the left lower extremity skin, with breakdown involving the left posterior calf and dorsal foot. She was recently treated at [facility] pseudomonal urinary tract infection and MRSA wound infection. Patient was discharged on 10 days of amoxicillin which she completed 4 days ago. At [facility] Patient was found to have elevated troponin, was tachycardic, and somnolent frequently dozing off and failing to respond to questioning. She complained of severe 10/10 pain secondary to her skin wounds. [facility] burn center was consulted by the Emergency Department and they recommended Silvadene diapers. Wound care was consulted, made recommendations and dressed wounds. Patient was admitted to the hospital for severe pain, worsening bedsores, and cellulitis. 1. Sepsis, present on admission. Resolved - Initial Vital signs in the Emergency Department: Temperature 36.8, pulse 104, blood pressure 120/72, respiratory rate 18, 99% on room air. White blood count 14.7, PMNs 82.2% - Patient was diagnosed on 12/26/2016 with a Pseudomonas UTI at [facility]. Patient has chronic open wounds. - UA: negative UA., normal lactic acid, normal procalcitonin - Blood cultures no growth 2, MRSA nasal PCR negative - Per infectious disease recommendation discontinued vancomycin, meropenem and clindamycin and started her on linesolid, 600 mg by mouth twice a day through January 30 to complete one week - Started on mupirocin ointment to the nares twice a day 2.Decubitus Ulcers, chronic, present on admission, status post surgical debridement. Active - Extensive involvement of the perineal area which appeared red and raw and reminiscent of a burn injury. Bilateral buttock pressure ulcers, with prominent eschar of the right buttock. Left lower extremity calf and dorsal foot decubitus. - Per [facility] note patient's wounds and "Urine mina" were present during that admission. - Was recently hospitalized in [facility] between 12/26/16 and 01/03/17. At [facility] patient had wound culture which grew Pseudomonas and MRSA. Patient was treated with Vanco and Zosyn. - Per patient's 's reports patients skin wounds have worsened since being discharged from [facility]. - Patient is a history of multiple sclerosis with multiple chronic bedsores. - Patient's daughter is a MANAGER BEHAVIORAL and has adequate home environment to care for the patient, and may be taking patient and her to live with her after discharge. - Wound care is following patient on outpatient status. - In the Emergency Department Cordero catheter was placed - A P500 bed was ordered for the patient - Silvadene diapers per [facility] burn center recommendation. We will wait on this as wound recommends no barrier to [place]ville area at this time. - left leg ulcer: wrapped using xeroform, kerlix and surgilast, this can be changed by nursing daily. - I would recommend no brief on this patient to allow air flow to this skin and treat skin in the meantime with shield wipes daily after pericare. - Surgical debridement done 01/22/[address] Toledo: cutaneous and subcutaneous debridement of sacral and gluteal closed decubitus ulcers - Per infectious disease recommendation discontinued vancomycin, meropenem and clindamycin and started her on linesolid, 600 mg by mouth twice a day through January 30 to complete one week - Discontinued intravenous dilaudid. Resumed home percocet 5-325 mg, 1-2 tablets every 4 hours as needed for pain - Pt in need of significant nursing care to prevent relapse of decubitus ulceration. She does not have capacity to care for self outside of nursing faclity at this time given coomorbid condition (MS), making placement only reasonable option at this time with goal of full recovery from condition. Social work consult as patient likely the in need of SNF placement on discharge if patient's daughter is unable to care for her but difficult to place her due to Meth and left AMA from [facility] recently. However yesterday reports that a SNF has been found that will accept her and now waiting until Monday to see if her insurance will authorize it 3. Bilateral Leg Cellulitis, present on admission. Active - skin breakdown of lower extremities, with associated erythema extending to the distal toes. The bilateral involvement brings into question as to whether or not cellulitis truly is the correct diagnosis. However per [facility] note patient had received Ancef and showed significant 30-40% improvement overnight of her cellulitis while at their facility. - Differential diagnosis occludes worsening stasis dermatitis, versus other inflammatory process such as her worsening psoriasis. - Of note patient does have history of stasis dermatitis. - Antibiotic and wound care as above. 4. Elevated troponin, present on admission. Active - Most likely due to demand ischemia from sepsis - Denies chest pain, heart palpitations, shortness of breath, diaphoresis - EKG showed sinus rhythm with a rate of 95, normal axis, P waves before each QRS, normal R-wave progression, slight [address] segment depression leads V4-5. - surgeon evaluated and felt she needed debridement which was done as ACS felt unlikely.likely demand ischemia from sepsis.benefit of source control of infection with debridement overweighs risk of ACS. 5. Acute encephalopathy, present on admission. resolved - Etiologies include infectious, severe pain, dehydration, illicit drug abuse to include methamphetamine, THC, and opiates. 6. Methamphetamine abuse, present on admission. Active - Urine tox returned positive for methamphetamine. 7. Psoriasis, chronic, present on admission. Active - Dermatology follow up as an outpatient 8. Multiple Sclerosis diagnosed in 2003, present on admission. Active - Followed by Dr. Alvarado, Neurologist, was last seen 1 year ago - For leg muscle spasms yesterday increased Baclofen to 10 mg and give TID scheduled and increase prn methocarbamol to 1500 mg 9. Anemia, normocytic hypochromic ,present on admission. Active. Stable Chronic issues: # Degenerative Disc Disease # Psoriasis, severe, diffuse, present on admission, active - She would likely benefit from follow-up with dermatology as an outpatient. # Stasis Dermatitis # Chronic lymphedema Disposition: Pending hospital course and SNF placement. If no SNF will accept her she may need longer stay to prevent early readmission. PCP: Dr. Artur López Contact: [facility] patient's GI Prophylaxis: Proton Pump Inhibitor VTE Prophylaxis: Sub-Q Heparin (Unfractionated) VTE Mechanical Devices: Intermittant Pneumatic CD Resuscitation Status: CPR: Attempt Resuscitation Bárbara Dickerson MD Jan 29, 2017 12:26
[2017-01-29 13:17] VITALS: BP 109/70; PULSE 86; RESP 20; O2SAT 98
--- NOTE | 2017-01-29 17:40 | NUR ---
wound/turning patient had small BM this afternoon, turning Q2 hours, skin protections Q2hrs. dressing changed to buttock--adaptic to wound bed, covered with ABD pad and secured with brief. patient slept on/off throughout shift. percocet and Robaxin PRN for pain and muscle spasms. continue to monitor.
[2017-01-29 20:23] VITALS: BP 120/75; PULSE 91; RESP 20; O2SAT 97
[2017-01-30] MEDS: Heparin 5,000 Unit/mL Inj SUBQ SCH ×3 (00:35→16:41)
[2017-01-30] MEDS: oxyCODONE-Acetamin 5-325 mg Tablet PO PRN ×5 (00:36→20:22)
--- NOTE | 2017-01-30 01:36 | NUR ---
Turning Patient turned Q2hr. Patient states pain is 9/10 with activity. Patient continues to receive 2 Percocet Q4 for pain. Robaxen for muscle spasms prn. Patient sleeping when not awake for medications.
[2017-01-30 06:14] VITALS: BP 104/64; PULSE 74; RESP 20; O2SAT 99
[2017-01-30] MEDS: Pantoprazole 40 mg ER24 Tablet PO SCH (06:17)
[2017-01-30] MEDS: Mupirocin 2% 22 Gm Ointment NASAL SCH ×2 (08:31→20:23)
--- NOTE | 2017-01-30 12:06 | NUR ---
dressing change perineal/sacral wound dressing changed. area cleansed with NS. barrier wipes used to surrounding tissue. Adaptic applied to wound bed, covered with ABD pad and secured with brief. orville care also performed. patient tolerated well. complete linen and gown changed. patient reports feeling "better" today. generalized body pain/ache rated 8/10 improved to 6-7/10 after PO percocet. continue with Q2hr turning/skin protection, monitor pain level and medicate PRN.
--- NOTE | 2017-01-30 13:34 | NUR ---
PT NOTE-- Patient not making any progress in PT since evaluation. Patient to be discharged from PT services.
--- NOTE | 2017-01-30 14:32 | NUR ---
Social Work-continued d/c planning: Data:EMR Reviewed. Pt is on day 10 of hospitalization for sacral decubitus per H&P. PT continues to recommend SNF placement for pt and pt is being followed by wound care. YUMIKO spoke with UR specialist who states she spoke with [facility] today and they are continuing to work on authorization for SNF placement. YUMIKO met with pt and SO [facility] at bedside, SW role explained. Pt and SO both in agreement for pt to go to [facility] if insurance authorizes this. [facility] and pt understand that if insurance denies SNF then pt will need to return home with home health and expedited referral has been sent in for [facility]. YUMIKO explained that SW will continue to keep pt and SO update on status. Paperwork and PASRR in the chart. SW will continue to follow. Assessment:Pt who would benefit from SNF. Plan:[facility] has accepted pt pending insurance authorization. If insurance denies pt then pt will return home with services. Expedited referral faxed in and APS report has been made. Paperwork and PASRR in the chart. SW will continue to follow. ASHELY Ordonez
[2017-01-30 15:28] VITALS: BP 117/73; RESP 18; O2SAT 96
--- NOTE | 2017-01-30 15:45 | PCM.PNMED ---
Subjective Date of Service Jan 30, 2017 Subjective Denies any pain or discomfort. no new issues/complaints Exam Vital Signs Vital Sign - Last Date Time Temp Pulse Resp B/P Pulse Ox O2 Delivery O2 Flow Rate FiO2 01/30/17 15:28 37.1 18 117/73 96 Room Air 01/30/17 06:14 74 01/24/17 12:36 1.00 Intake and Output 01/29/17 01/29/17 01/30/17 Cumulative From/Thru 15:00 23:00 07:00 01/20/17 15:07 - 01/30/17 06:14 Intake Total 1200 ml 1000 ml 75083 ml Output Total 600 ml 1100 ml 47684 ml Balance 600 ml -100 ml -9347 ml Intake Oral 1200 ml 1000 ml 68194 ml IV Total 50926 ml Output Urine Total 600 ml 1100 ml 07316 ml # Bowel Movements 1 0 4 General: Alert, Cooperative, No Acute Distress Head: Normal Eyes: Scleral Anicteric Nose: Mucous Membr Moist/[place] Mouth: Mucous Membr Moist/[place] Neck: Supple Chest & Lungs: Chest Wall Normal, Clear to auscultation & percussion Cardiovascular: Regular Rate/Rhythm Abdomen: Non-tender, Non-distended, Normoactive bowel tones, Soft Extremities: No cyanosis/clubbing/edma bilat Neurological: Cranial Nerves 2-12 Intact, Normal Speech IVs and Medications Medications Reviewed: Medications were reviewed in detail Lab and Diagnostics Result Diagram: 01/27/17 0557 01/27/17 0557 X-Rays, CTs and MRIs X-RAY CHEST IMPRESSION: Negative chest. No acute cardiopulmonary process is suspected. Dictated and approved by: Alexey Babin M.D. on 01/20/2017 at 15:27 12-lead ECG Sinus rhythm with a rate of 95, normal axis, P waves before each QRS, normal R wave progression, slight ST segment depression in leads V4-5 Assessment & Plan 51 year old female with history of multiple sclerosis, and severe psoriasis, who presented to Emergency Department with extensive sacral perineal and lower extremity decubitus secondary to prolonged exposure to stool and inability to reposition herself, she also has venous stasis changes in the left lower extremity skin, with breakdown involving the left posterior calf and dorsal foot. Patient was admitted to the hospital for severe pain, worsening bedsores , and cellulitis. # Acute sepsis, present on admission. Resolved - Initial Vital signs in the Emergency Department: Temperature 36.8, pulse 104, blood pressure 120/72, respiratory rate 18, 99% on room air. White blood count 14.7, PMNs 82.2% - Patient was diagnosed on 12/26/2016 with a Pseudomonas UTI at [facility]. Patient has chronic open wounds. - Per infectious disease recommendation discontinued vancomycin, meropenem and clindamycin and started her on Linezolid, 600 mg by mouth twice a day through January 30 to complete one week - Started on mupirocin ointment to the nares twice a day # Decubitus Ulcers, chronic, present on admission, status post surgical debridement. Active. multiple sclerosis with multiple chronic bedsores. - Extensive involvement of the perineal area which appeared red and raw and reminiscent of a burn injury. Bilateral buttock pressure ulcers, with prominent eschar of the right buttock. Left lower extremity calf and dorsal foot decubitus. - Per [facility] note patient's wounds and "Urine mina" were present during that admission. - Was recently hospitalized in [facility] between 12/26/16 and 01/03/17. At [facility] patient had wound culture which grew Pseudomonas and MRSA. Was treated with Vanco and Zosyn. - Wound care is following patient on outpatient status. - In the Emergency Department Cordero catheter was placed - A P500 bed was ordered for the patient - Silvadene diapers per [facility] burn center recommendation. - left leg ulcer: wrapped using xeroform, kerlix and surgilast, this can be changed by nursing daily. - No brief on this patient to allow air flow to this skin and treat skin in the meantime with shield wipes daily after pericare. - Surgical debridement done 01/22/[address] Toledo: cutaneous and subcutaneous debridement of sacral and gluteal closed decubitus ulcers # Bilateral Leg Cellulitis, present on admission. Resolved - skin breakdown of lower extremities, with associated erythema extending to the distal toes. The bilateral involvement brings into question as to whether or not cellulitis truly is the correct diagnosis. - Differential diagnosis includes worsening stasis dermatitis, versus other inflammatory process such as her worsening psoriasis. - Of note patient does have history of stasis dermatitis. - Antibiotic and wound care as above. # Elevated troponin, present on admission. Active - Most likely due to demand ischemia from sepsis - Denies chest pain, heart palpitations, shortness of breath, diaphoresis - EKG showed sinus rhythm with a rate of 95, normal axis, P waves before each QRS, normal R-wave progression, slight [address] segment depression leads V4-5. # Acute encephalopathy, present on admission. resolved - Etiologies include infectious, severe pain, dehydration, illicit drug abuse to include methamphetamine, THC, and opiates. # Methamphetamine abuse, present on admission. Active - Urine tox returned positive for methamphetamine. # Psoriasis, chronic, present on admission. Active - Dermatology follow up as an outpatient # Multiple Sclerosis diagnosed in 2003, present on admission. Active - Followed by Dr. Alvarado, Neurologist, was last seen 1 year ago - For leg muscle spasms yesterday increased Baclofen to 10 mg and give TID scheduled and increase prn methocarbamol to 1500 mg # Anemia, normocytic hypochromic, chronic, present on admission. Stable # Degenerative Disc Disease - Continue with supportive care Disposition: Pending SNF placement. GI Prophylaxis: Proton Pump Inhibitor VTE Prophylaxis: Sub-Q Heparin (Unfractionated) VTE Mechanical Devices: Intermittant Pneumatic CD Resuscitation Status: CPR: Attempt Resuscitation Merlin Vences Jan 30, 2017 15:45 GI Prophylaxis: Proton Pump Inhibitor VTE Prophylaxis: Sub-Q Heparin (Unfractionated) VTE Mechanical Devices: Intermittant Pneumatic CD Resuscitation Status: CPR: Attempt Resuscitation Merlin Vences Jan 30, 2017 15:45
--- NOTE | 2017-01-30 16:33 | NUR ---
Wound care Dressing taken down at left leg today, all ulcerations at left leg are healed at this time so legs were moisturized and heels floated. Does not require dressings at legs at this time. Ulcerations that were debrided at patients buttocks and sacrum are clear of any necrotic tissue and are granulating nicely, drainage is significantly decreased at this time. Continue daily dressing changes with adaptic and abd pads. Encourage sidelying.
--- NOTE | 2017-01-30 18:28 | NUR ---
Mobility patient making little progress with bed mobility. turn Q2hrs, pillows to protect elbows and float heels. patient was able to get to the C with 2 person max assist to stand/pivot using gait belt. patient able to have large formed stool. perineal/sacral dressing changed minimal drainage from wound bed. improved from yesterdays appearance. dressing on LLE removed by wound care today, skin on left calf and dorsal foot intact, red and fragile. continue to monitor and skin protection.
[2017-01-30 21:13] VITALS: BP 107/65; PULSE 94; RESP 20; O2SAT 96
[2017-01-31] MEDS: Heparin 5,000 Unit/mL Inj SUBQ SCH ×3 (00:47→16:54)
--- NOTE | 2017-01-31 03:34 | NUR ---
activity/pain pt complained of 10/10 pain in her L hip to her left knee. she stated that it felt like the hip joint. she was crying and difficult to console. nurse suggested to pt that it might be muscle spasms she's feeling and asked if she wanted to try robaxin. pt agreed and robaxin was administered. upon reassessment pt was found sleeping, appearing comfortable. pt has been encouraged to turn q2h and lay on her side to keep pressure off of her wounds. dressing is c/d/i. pt legs have been floated on pillows. care continues.
[2017-01-31] MEDS: oxyCODONE-Acetamin 5-325 mg Tablet PO PRN ×3 (04:24→18:30)
[2017-01-31 05:38] VITALS: BP 120/70; PULSE 80; RESP 18; O2SAT 97
[2017-01-31 06:13] LABS: BASOPHILS % (AUTO) 0.7 % (0-3); EOSINOPHILS % (AUTO) 6.4 % (0-5); MONOCYTES % (AUTO) 15.7 % (4-12); Mean Corpuscular Hemoglobin 25.3 pg (27.0-35.0); Mean Corpuscular Volume 83.2 fL (81-100); NEUTROPHILS % (AUTO) 51.2 % (40-74); Platelet Count 516 bil/L (150-400)
[2017-01-31 06:15] LABS: INR 0.93 ratio
[2017-01-31] MEDS: Pantoprazole 40 mg ER24 Tablet PO SCH (06:41)
[2017-01-31] MEDS: Mupirocin 2% 22 Gm Ointment NASAL SCH (08:47)
--- NOTE | 2017-01-31 10:18 | NUR ---
Spoke with Amber chung RN is [facility] she checked in again this morning and it is still in process. Updated CLINICAL RN
[2017-01-31 13:52] VITALS: BP 103/62; PULSE 79; RESP 15; O2SAT 97
--- NOTE | 2017-01-31 14:57 | NUR ---
Generalized pain Pt c/o generalized pain, rating at 10/10. PRN Percocet -2 tabs not effective. Pt then given PRN Robaxin 1,500mg which was much more effective. Pt calm and coop with care, cont to monitor.
--- NOTE | 2017-01-31 16:07 | NUR ---
NUTRITION FOLLOW-UP: ASSESS: 51 YO female admitted for extensive sacral perineal and lower extremity decubitus. Wound care is following. Per latest wound care note, lower extremity wounds have healed and buttock/sacral wounds are improving. Pt continues on a dysphagia mechanical diet with good PO intake. PMHx: MS, chronic LLE wounds, degenerative disk disease, psoriasis, stasis dermatitis, chronic lymphedema, substance abuse (meth, opiates). DIET: Dysphagia Mechanical, Ensure all trays and Stevo BID. PO 50-100% LABS: Reviewed. MEDICATIONS: Reviewed. GI symptoms / stool: BM x 1 (01/30) Skin Integrity: sacral / gluteal ulcers, wound care and surgery following-wounds are improving ANTHROPOMETRICS: Current Wt: 64 kg Admit wt 70.5kg ESTIMATED NEEDS (WOUNDS): Calories: 2115 - 2468 kcal (30 - 35 kcal / kg BW) Protein: 105 - 125 g protein (1.5 - 1.8 g / kg BW) NUTRITION DIAGNOSIS: 1) Increased nutrient needs related to multiple skin issues, as evidenced by pt with sacral / gluteal ulcers and need for I&D of wounds.--IMPROVING INTERVENTION: 1) Continue Ensure on all trays. 2) Continue Stevo with Lemon [place] Soda on L and D trays. MONITOR/EVALUATE: PO intake, wt, wounds, labs, GI/nutrition status. Follow up per moderate nutrition risk guidelines.
--- NOTE | 2017-01-31 16:31 | PCM.PNMED ---
Subjective Date of Service Jan 31, 2017 Subjective Denies any pain or discomfort. no new issues/complaints Exam Vital Signs Vital Sign - Last Date Time Temp Pulse Resp B/P Pulse Ox O2 Delivery O2 Flow Rate FiO2 01/31/17 16:18 Supplement Oxygen 01/31/17 13:52 36.9 79 15 103/62 97 Intake and Output 01/30/17 01/30/17 01/31/17 Cumulative From/Thru 15:00 23:00 07:00 01/20/17 15:07 - 01/31/17 05:38 Intake Total 800 ml 800 ml 70503 ml Output Total 800 ml 650 ml 26094 ml Balance 0 ml 150 ml -9197 ml Intake Oral 800 ml 800 ml 20172 ml IV Total 88719 ml Output Urine Total 800 ml 650 ml 76586 ml # Bowel Movements 1 0 5 Exam General: Alert, Cooperative, No Acute Distress Head: Normal Eyes: Scleral Anicteric Nose: Mucous Membr Moist/[place] Mouth: Mucous Membr Moist/[place] Neck: Supple Chest & Lungs: Chest Wall Normal, Clear to auscultation bilat Cardiovascular: Regular Rate/Rhythm Abdomen: Non-tender, Non-distended, Normoactive bowel tones, Soft Extremities: No cyanosis/clubbing/edema bilat Neurological: Cranial Nerves 2-12 Intact, Normal Speech IVs and Medications Medications Reviewed: Medications were reviewed in detail Lab and Diagnostics Result Diagram: 01/31/17 0525 01/31/17 0525 X-Rays, CTs and MRIs X-RAY CHEST IMPRESSION: Negative chest. No acute cardiopulmonary process is suspected. Dictated and approved by: Alexey Babin M.D. on 01/20/2017 at 15:27 12-lead ECG Sinus rhythm with a rate of 95, normal axis, P waves before each QRS, normal R wave progression, slight ST segment depression in leads V4-5 Assessment & Plan 51 year old female with history of multiple sclerosis, and severe psoriasis, who presented to Emergency Department with extensive sacral perineal and lower extremity decubitus secondary to prolonged exposure to stool and inability to reposition herself, she also has venous stasis changes in the left lower extremity skin, with breakdown involving the left posterior calf and dorsal foot. Patient was admitted to the hospital for severe pain, worsening bedsores , and cellulitis. # Acute sepsis, present on admission. Resolved - Initial Vital signs in the Emergency Department: Temperature 36.8, pulse 104, blood pressure 120/72, respiratory rate 18, 99% on room air. White blood count 14.7, PMNs 82.2% - Patient was diagnosed on 12/26/2016 with a Pseudomonas UTI at [facility]. Patient has chronic open wounds. - Per infectious disease recommendation discontinued vancomycin, meropenem and clindamycin and started her on Linezolid, 600 mg by mouth twice a day through January 30 to complete one week - Started on mupirocin ointment to the nares twice a day # Decubitus Ulcers, chronic, present on admission, status post surgical debridement. Active. multiple sclerosis with multiple chronic bedsores. - Extensive involvement of the perineal area which appeared red and raw and reminiscent of a burn injury. Bilateral buttock pressure ulcers, with prominent eschar of the right buttock. Left lower extremity calf and dorsal foot decubitus. - Per [facility] note patient's wounds and "Urine mina" were present during that admission. - Was recently hospitalized in [facility] between 12/26/16 and 01/03/17. At [facility] patient had wound culture which grew Pseudomonas and MRSA. Was treated with Vanco and Zosyn. - Wound care is following patient on outpatient status. - In the Emergency Department Cordero catheter was placed - A P500 bed was ordered for the patient - Silvadene diapers per [facility] burn center recommendation. - left leg ulcer: wrapped using xeroform, kerlix and surgilast, this can be changed by nursing daily. - No brief on this patient to allow air flow to this skin and treat skin in the meantime with shield wipes daily after pericare. - Surgical debridement done 01/22/[address] Toledo: cutaneous and subcutaneous debridement of sacral and gluteal closed decubitus ulcers # Bilateral Leg Cellulitis, present on admission. Resolved - skin breakdown of lower extremities, with associated erythema extending to the distal toes. The bilateral involvement brings into question as to whether or not cellulitis truly is the correct diagnosis. - Differential diagnosis includes worsening stasis dermatitis, versus other inflammatory process such as her worsening psoriasis. - Of note patient does have history of stasis dermatitis. - Antibiotic and wound care as above. # Elevated troponin, present on admission. Active - Most likely due to demand ischemia from sepsis - Denies chest pain, heart palpitations, shortness of breath, diaphoresis - EKG showed sinus rhythm with a rate of 95, normal axis, P waves before each QRS, normal R-wave progression, slight [address] segment depression leads V4-5. # Acute encephalopathy, present on admission. resolved - Etiologies include infectious, severe pain, dehydration, illicit drug abuse to include methamphetamine, THC, and opiates. # Methamphetamine abuse, present on admission. Active - Urine tox returned positive for methamphetamine. # Psoriasis, chronic, present on admission. Active - Dermatology follow up as an outpatient # Multiple Sclerosis diagnosed in 2003, present on admission. Active - Followed by Dr. Alvarado, Neurologist, was last seen 1 year ago - For leg muscle spasms yesterday increased Baclofen to 10 mg and give TID scheduled and increase prn methocarbamol to 1500 mg # Anemia, normocytic hypochromic, chronic, present on admission. Stable # Degenerative Disc Disease - Continue with supportive care Disposition: Pending SNF placement. GI Prophylaxis: Proton Pump Inhibitor VTE Prophylaxis: Sub-Q Heparin (Unfractionated) VTE Mechanical Devices: Intermittant Pneumatic CD Resuscitation Status: CPR: Attempt Resuscitation Merlin Vences Jan 31, 2017 16:31
[2017-01-31 20:20] VITALS: BP 125/77; PULSE 96; RESP 18; O2SAT 98
--- NOTE | 2017-01-31 22:00 | NUR ---
Discomfort Pt was noted to have generalized muscle spasms. She requests Ribaxin and baclofen. Currently resting quietly. No complaints.
--- NOTE | 2017-01-31 23:25 | NUR ---
Dressing change Dressing change done to sacral wound Vaseline gauze reapplied. Wound is bloody. Very slight ooze. Applied blue chux under patient. No ABD as it would most likely move from the wound. Log rolling practiced to reduce sacral friction. Pt tolerated procedure
[2017-02-01] MEDS: Heparin 5,000 Unit/mL Inj SUBQ SCH ×3 (01:31→18:26)
[2017-02-01 06:27] VITALS: BP 126/85; PULSE 80; RESP 16; O2SAT 100
[2017-02-01] MEDS: Pantoprazole 40 mg ER24 Tablet PO SCH (06:44)
[2017-02-01] MEDS: oxyCODONE-Acetamin 5-325 mg Tablet PO PRN ×2 (08:54→20:31)
--- NOTE | 2017-02-01 09:12 | NUR ---
Social Work-readiness for discharge: Data:EMR Reviewed. Pt is on day 12 of hospitalization for sacral decubitus per H&P. Pt is medically stable,awaiting insurance authorization. Pt has been accepted at [facility] and they are working with pt's insurance company to obtain authorization. Pt and SO are agreeable to plan. APS report has been made and Expedite referral has been faxed in. If insurance does not authorize placement pt will have to return home. YUMIKO spoke with Hunter Garcia with [facility] who confirms they are not able to take pt back on services at discharge. If pt does return home, pt will have to follow up at wound care center. Paperwork and PASRR in the chart. SW will continue to follow. Assessment:Pt who would benefit from SNF. vonda:[facility] has accepted pt, working on insurance authorization. If insurance denies than pt will need to return home with follow up at wound care center. APS report and expedited referral has been sent in. Paperwork and PASRR in the chart. SW will continue to follow. ASHELY Ordonez
--- NOTE | 2017-02-01 10:25 | NUR ---
Spoke to Tonny at [facility], they re-faxed referral to [facility] this morning. Tonny will call with an update this afternoon. Advised ASHELY.
[2017-02-01 12:16] VITALS: BP 121/76; PULSE 94; RESP 16; O2SAT 97
--- NOTE | 2017-02-01 14:31 | PCM.PNMED ---
Subjective Date of Service Feb 01, 2017 Subjective Denies any pain or discomfort. no new issues/complaints Exam Vital Signs Vital Sign - Last Date Time Temp Pulse Resp B/P Pulse Ox O2 Delivery O2 Flow Rate FiO2 02/01/17 12:16 36.8 94 16 121/76 97 Room Air Intake and Output 01/31/17 01/31/17 02/01/17 Cumulative From/Thru 14:59 22:59 06:59 01/20/17 15:07 - 02/01/17 06:29 Intake Total 1411 ml 250 ml 21901 ml Output Total 750 ml 1400 ml 32530 ml Balance 661 ml -1150 ml -9686 ml Intake Oral 1411 ml 250 ml 93580 ml IV Total 81145 ml Output Urine Total 750 ml 1400 ml 90553 ml # Bowel Movements 0 5 Exam General: Alert, Cooperative, No Acute Distress Head: Normal Eyes: Scleral Anicteric Nose: Mucous Membr Moist/[place] Mouth: Mucous Membr Moist/[place] Neck: Supple Chest & Lungs: Chest Wall Normal, Clear to auscultation bilat Cardiovascular: Regular Rate/Rhythm Abdomen: Non-tender, Non-distended, Normoactive bowel tones, Soft Extremities: No cyanosis/clubbing/edema bilat Neurological: Cranial Nerves 2-12 Intact, Normal Speech IVs and Medications Medications Reviewed: Medications were reviewed in detail Lab and Diagnostics Result Diagram: 01/31/1752401/31/17 05 X-Rays, CTs and MRIs X-RAY CHEST IMPRESSION: Negative chest. No acute cardiopulmonary process is suspected. Dictated and approved by: Alexey Babin M.D. on 01/20/2017 at 15:27 12-lead ECG Sinus rhythm with a rate of 95, normal axis, P waves before each QRS, normal R wave progression, slight ST segment depression in leads V4-5 Assessment & Plan 51 year old female with history of multiple sclerosis, and severe psoriasis, who presented to Emergency Department with extensive sacral perineal and lower extremity decubitus secondary to prolonged exposure to stool and inability to reposition herself, she also has venous stasis changes in the left lower extremity skin, with breakdown involving the left posterior calf and dorsal foot. Patient was admitted to the hospital for severe pain, worsening bedsores , and cellulitis. # Acute sepsis, present on admission. Resolved - Initial Vital signs in the Emergency Department: Temperature 36.8, pulse 104, blood pressure 120/72, respiratory rate 18, 99% on room air. White blood count 14.7, PMNs 82.2% - Patient was diagnosed on 12/26/2016 with a Pseudomonas UTI at [facility]. Patient has chronic open wounds. - Per infectious disease recommendation discontinued vancomycin, meropenem and clindamycin and started her on Linezolid, 600 mg by mouth twice a day through January 30 to complete one week - Started on mupirocin ointment to the nares twice a day # Decubitus Ulcers, chronic, present on admission, status post surgical debridement. Active. multiple sclerosis with multiple chronic bedsores. - Extensive involvement of the perineal area which appeared red and raw and reminiscent of a burn injury. Bilateral buttock pressure ulcers, with prominent eschar of the right buttock. Left lower extremity calf and dorsal foot decubitus. - Per [facility] note patient's wounds and "Urine mina" were present during that admission. - Was recently hospitalized in [facility] between 12/26/16 and 01/03/17. At [facility] patient had wound culture which grew Pseudomonas and MRSA. Was treated with Vanco and Zosyn. - Wound care is following patient on outpatient status. - In the Emergency Department Cordero catheter was placed - A P500 bed was ordered for the patient - Silvadene diapers per [facility] burn center recommendation. - left leg ulcer: wrapped using xeroform, kerlix and surgilast, this can be changed by nursing daily. - No brief on this patient to allow air flow to this skin and treat skin in the meantime with shield wipes daily after pericare. - Surgical debridement done 01/22/[address] Toledo: cutaneous and subcutaneous debridement of sacral and gluteal closed decubitus ulcers # Bilateral Leg Cellulitis, present on admission. Resolved - skin breakdown of lower extremities, with associated erythema extending to the distal toes. The bilateral involvement brings into question as to whether or not cellulitis truly is the correct diagnosis. - Differential diagnosis includes worsening stasis dermatitis, versus other inflammatory process such as her worsening psoriasis. - Of note patient does have history of stasis dermatitis. - Antibiotic and wound care as above. # Elevated troponin, present on admission. Active - Most likely due to demand ischemia from sepsis - Denies chest pain, heart palpitations, shortness of breath, diaphoresis - EKG showed sinus rhythm with a rate of 95, normal axis, P waves before each QRS, normal R-wave progression, slight [address] segment depression leads V4-5. # Acute encephalopathy, present on admission. resolved - Etiologies include infectious, severe pain, dehydration, illicit drug abuse to include methamphetamine, THC, and opiates. # Methamphetamine abuse, present on admission. Active - Urine tox returned positive for methamphetamine. # Psoriasis, chronic, present on admission. Active - Dermatology follow up as an outpatient # Multiple Sclerosis diagnosed in 2003, present on admission. Active - Followed by Dr. Alvarado, Neurologist, was last seen 1 year ago - For leg muscle spasms yesterday increased Baclofen to 10 mg and give TID scheduled and increase prn methocarbamol to 1500 mg # Anemia, normocytic hypochromic, chronic, present on admission. Stable # Degenerative Disc Disease - Continue with supportive care Disposition: Pending SNF placement. GI Prophylaxis: Proton Pump Inhibitor VTE Prophylaxis: Sub-Q Heparin (Unfractionated) VTE Mechanical Devices: Intermittant Pneumatic CD Resuscitation Status: CPR: Attempt Resuscitation Merlin Vences Feb 01, 2017 14:31
--- NOTE | 2017-02-01 19:31 | NUR ---
Mobility/dressing change Pt. transferred with 2 PA to BS today for BM. Tolerated activity well. Dressing changed using adaptic gauze covered with an ABD pad. Q2 turns and skin care.
[2017-02-01 20:20] VITALS: BP 137/72; PULSE 102; RESP 16; O2SAT 95
[2017-02-02] MEDS: Heparin 5,000 Unit/mL Inj SUBQ SCH ×3 (01:46→17:17)
[2017-02-02] MEDS: oxyCODONE-Acetamin 5-325 mg Tablet PO PRN ×4 (04:55→20:57)
[2017-02-02 05:30] VITALS: BP 107/68; PULSE 77; RESP 16; O2SAT 96
[2017-02-02] MEDS: Pantoprazole 40 mg ER24 Tablet PO SCH (06:04)
--- NOTE | 2017-02-02 06:32 | NUR ---
Skin care Patient's Adaptic dressing was changed this shift with abd and hypafix tape. Previous dressing had tape that when removed caused a small skin tear on Patients right thigh. Patient's pain has been managed well with 2 Percocet twice this shift. Cordero patent and draining. Patient had a large BM this shift. [id number]. Vitals stable.
[2017-02-02 08:09] VITALS: BP 115/75; PULSE 70; RESP 18; O2SAT 99
--- NOTE | 2017-02-02 12:03 | NUR ---
faxed wound care notes to Deanna at [facility], . Auth is still pending.
[2017-02-02 13:28] VITALS: BP 114/75; PULSE 81; RESP 18; O2SAT 99
--- NOTE | 2017-02-02 15:13 | PCM.PNMED ---
Subjective Date of Service Feb 02, 2017 Subjective Denies any pain or discomfort. no new issues/complaints Exam Vital Signs Vital Sign - Last Date Time Temp Pulse Resp B/P Pulse Ox O2 Delivery O2 Flow Rate FiO2 02/02/17 13:28 36.7 81 18 114/75 99 Room Air Intake and Output 02/01/17 02/01/17 02/02/17 Cumulative From/Thru 15:00 23:00 07:00 01/20/17 15:07 - 02/02/17 06:42 Intake Total 976 ml 400 ml 86498 ml Output Total 800 ml 1300 ml 31602 ml Balance 176 ml -900 ml -64441 ml Intake Oral 956 ml 400 ml 47844 ml IV Total 20 ml 63000 ml Output Urine Total 800 ml 1300 ml 40801 ml # Bowel Movements 1 1 7 Exam General: Alert, Cooperative, No Acute Distress Head: Normal Eyes: Scleral Anicteric Nose: Mucous Membr Moist/[place] Mouth: Mucous Membr Moist/[place] Neck: Supple Chest & Lungs: Chest Wall Normal, Clear to auscultation bilat Cardiovascular: Regular Rate/Rhythm Abdomen: Non-tender, Non-distended, Normoactive bowel tones, Soft Extremities: No cyanosis/clubbing/edema bilat Neurological: Cranial Nerves 2-12 Intact, Normal Speech IVs and Medications Medications Reviewed: Medications were reviewed in detail Lab and Diagnostics Result Diagram: 01/31/17 0501/31/17 0525 X-Rays, CTs and MRIs X-RAY CHEST IMPRESSION: Negative chest. No acute cardiopulmonary process is suspected. Dictated and approved by: Alexey Babin M.D. on 01/20/2017 at 15:27 12-lead ECG Sinus rhythm with a rate of 95, normal axis, P waves before each QRS, normal R wave progression, slight ST segment depression in leads V4-5 Assessment & Plan 51 year old female with history of multiple sclerosis, and severe psoriasis, who presented to Emergency Department with extensive sacral perineal and lower extremity decubitus secondary to prolonged exposure to stool and inability to reposition herself, she also has venous stasis changes in the left lower extremity skin, with breakdown involving the left posterior calf and dorsal foot. Patient was admitted to the hospital for severe pain, worsening bedsores , and cellulitis. # Acute sepsis, present on admission. Resolved - Initial Vital signs in the Emergency Department: Temperature 36.8, pulse 104, blood pressure 120/72, respiratory rate 18, 99% on room air. White blood count 14.7, PMNs 82.2% - Patient was diagnosed on 12/26/2016 with a Pseudomonas UTI at [facility]. Patient has chronic open wounds. - Per infectious disease recommendation discontinued vancomycin, meropenem and clindamycin and started her on Linezolid, 600 mg by mouth twice a day through January 30 to complete one week - Started on mupirocin ointment to the nares twice a day # Decubitus Ulcers, chronic, present on admission, status post surgical debridement. Active. multiple sclerosis with multiple chronic bedsores. - Extensive involvement of the perineal area which appeared red and raw and reminiscent of a burn injury. Bilateral buttock pressure ulcers, with prominent eschar of the right buttock. Left lower extremity calf and dorsal foot decubitus. - Per [facility] note patient's wounds and "Urine mina" were present during that admission. - Was recently hospitalized in [facility] between 12/26/16 and 01/03/17. At [facility] patient had wound culture which grew Pseudomonas and MRSA. Was treated with Vanco and Zosyn. - Wound care is following patient on outpatient status. - In the Emergency Department Cordero catheter was placed - A P500 bed was ordered for the patient - Silvadene diapers per [facility] burn center recommendation. - left leg ulcer: wrapped using xeroform, kerlix and surgilast, this can be changed by nursing daily. - No brief on this patient to allow air flow to this skin and treat skin in the meantime with shield wipes daily after pericare. - Surgical debridement done 01/22/[address] Toledo: cutaneous and subcutaneous debridement of sacral and gluteal closed decubitus ulcers # Bilateral Leg Cellulitis, present on admission. Resolved - skin breakdown of lower extremities, with associated erythema extending to the distal toes. The bilateral involvement brings into question as to whether or not cellulitis truly is the correct diagnosis. - Differential diagnosis includes worsening stasis dermatitis, versus other inflammatory process such as her worsening psoriasis. - Of note patient does have history of stasis dermatitis. - Antibiotic and wound care as above. # Elevated troponin, present on admission. Active - Most likely due to demand ischemia from sepsis - Denies chest pain, heart palpitations, shortness of breath, diaphoresis - EKG showed sinus rhythm with a rate of 95, normal axis, P waves before each QRS, normal R-wave progression, slight [address] segment depression leads V4-5. # Acute encephalopathy, present on admission. resolved - Etiologies include infectious, severe pain, dehydration, illicit drug abuse to include methamphetamine, THC, and opiates. # Methamphetamine abuse, present on admission. Active - Urine tox returned positive for methamphetamine. # Psoriasis, chronic, present on admission. Active - Dermatology follow up as an outpatient # Multiple Sclerosis diagnosed in 2003, present on admission. Active - Followed by Dr. Alvarado, Neurologist, was last seen 1 year ago - For leg muscle spasms continue with Baclofen and prn methocarbamol # Anemia, normocytic hypochromic, chronic, present on admission. Stable # Degenerative Disc Disease - Continue with supportive care Disposition: Pending SNF placement. Likely tomorrow. GI Prophylaxis: Proton Pump Inhibitor VTE Prophylaxis: Sub-Q Heparin (Unfractionated) VTE Mechanical Devices: Intermittant Pneumatic CD Resuscitation Status: CPR: Attempt Resuscitation Merlin Vences Feb 02, 2017 15:13
--- NOTE | 2017-02-02 16:12 | NUR ---
Dressing change Changed wound dressing on right buttock. Adaptic dressing was placed over wound and covered with an ABD pad. ABD pad was adhered with hypafix tape.
--- NOTE | 2017-02-02 16:14 | NUR ---
Mobility Pt. Q2H turns with pillows in place. Pt. did get up to the shower today with 3 person assist. Tolerated activity well.
[2017-02-02 17:25] VITALS: BP 109/69; PULSE 79; RESP 16; O2SAT 96
--- NOTE | 2017-02-02 17:57 | NUR ---
ACTIVITY Percocet 2 tabs PO has been effective for pain control. Via FELDT scale patients pain level is 0/10 after her pain medication. Tolerating liquids PO and her diet fairly. Denies nausea. No emesis noted. Denies SOB. Patient got OOB to shower with 2-3 max assist. Gait is unsteady. Unable to stand for transfers. Dressing changed as ordered. IFC intact and draining to pale colored UO. Turned and repositioned Q 2 hrs. However, patient was noted to be taking pillows off her sides when she was turned. Patient made aware RE: Importance of turning. Care continues.
[2017-02-02 20:50] VITALS: BP 107/58; PULSE 96; RESP 16; O2SAT 95
[2017-02-03] MEDS: Heparin 5,000 Unit/mL Inj SUBQ SCH ×2 (00:57→08:46)
[2017-02-03] MEDS: oxyCODONE-Acetamin 5-325 mg Tablet PO PRN ×3 (01:22→13:21)
[2017-02-03 06:00] VITALS: BP 117/69; PULSE 72; RESP 16; O2SAT 96
--- NOTE | 2017-02-03 06:29 | NUR ---
Activity/Pain Pt reported pain 10/10, rec'd PRN percocet with + effects. Pt was able to sleep 5hrs and then awoke crying in pain, 10/10 and legs with spasms, Rec'd PRN robaxin and percocet with + effects. Pt repositioned q2hrs, dressing intact, sands patent to gravity. care continues
[2017-02-03] MEDS: Pantoprazole 40 mg ER24 Tablet PO SCH (08:41)
[2017-02-03 08:47] VITALS: BP 112/72; PULSE 76; RESP 20; O2SAT 96
--- NOTE | 2017-02-03 09:14 | PCM.PNSURG ---
Subjective Date of Service: Feb 03, 2017 Date of Service: Feb 03, 2017 Visit Information: Reason for Visit Sacral Decubitis,General Weakness,Elevated Troponi Surgery/Surgery Date Post-Op Day # Date of Admission: Jan 20, 2017 at 21:20 Hospital Day # Subjective: Patient was lying in bed. Greatly improved condition from admission. She was talkative, laughing. Eating breakfast without difficulty. No acute distress. Reports pain very well controlled. Denies nausea, vomiting, constipation, diarrhea, shortness of breath, chest pain. Objective Objective General: Patient is alert and oriented to person to place. Patient in no acute distress with passive and active movement. sitting up in bed. HEENT: NC/AT, eyes noninjected, pupils equally round, neck tender to palpation. Lungs: CTAB anteriorly, no wheezes, no rhonchi, no crackles,. Heart: Regular rate and rhythm, no murmur, no rub,. Abdomen: Soft, nontender, nondistended, bowel sounds not heard, no rebound, no guarding, Genitourinary: no suprapubic tenderness, Cordero catheter in place and draining clear yellow-colored urine. Extremities: Rigid extremities. Pulses equal and symmetric upper/lower extremity including radial and dorsalis pedis, bilateral lower extremity edema present. Left lower extremity is bandaged with new clean dry bandage. Neurologic: improved active range of motion. Psyc: much improved from 2 days ago. Skin: Diffuse psoriatic plaques from head to toe but improving with adequate daily care. Will view Sacral and gluteal wound with wound care today. Vital Sign- Last 8 Hours Date Time Temp Pulse Resp B/P Pulse Ox O2 Delivery O2 Flow Rate FiO2 02/03/17 06:00 36.3 72 16 117/69 96 Room Air Intake and Output- Last 8 Hour 02/03/17 Cumulative From/Thru 07:00 01/20/17 15:07 - 02/03/17 06:37 Intake Total 415 ml 81145 ml Output Total 1300 ml 77352 ml Balance -885 ml -89699 ml Intake Oral 415 ml 43549 ml IV Total 92857 ml Output Urine Total 1300 ml 48565 ml # Bowel Movements 0 8 Result Diagram: 01/31/17 0525 01/31/17 0525 Assessment & Plan Impression Dunia Jerez is a very unfortunate 51 y/o F with history of MS, and severe psoriasis, and sacral / gluteal ulcers status post #4 following surgical debridement. Problems: Plan Ulcerations remain shallow with active, yet decreased, bleeding from day before with dressing change. Wound care following. With regular repositioning and adequate wound care, these wounds will heal nicely. Due to debilitating MS patient will require close care for regular repositioning and wound care as outpatient to ensure wound remains free of urine and feces. Patient continuing to await SNF placement. VTE Prophylaxis: Sub-Q Heparin (Unfractionated) Resuscitation Status: CPR: Attempt Resuscitation TEREZA PYLE DO Feb 03, 2017 07:50
--- NOTE | 2017-02-03 10:13 | NUR ---
NUTRITION FOLLOW-UP: ASSESS: 51 YO female admitted for extensive sacral perineal and lower extremity decubitus. She is s/p day 8 for surgical debridement. Wound care is following. Per latest wound care note 01/30, lower extremity wounds have healed and buttock/sacral wounds are improving. Pt continues on a dysphagia mechanical diet with good PO intake. Pt is currently waiting for placement. PMHx: MS, chronic LLE wounds, degenerative disk disease, psoriasis, stasis dermatitis, chronic lymphedema, substance abuse (meth, opiates). DIET: Dysphagia Mechanical, Ensure all trays and Stevo BID. PO 50-100% LABS: Reviewed. 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 GI symptoms / stool: BM x 2 (02/02) Skin Integrity: sacral / gluteal ulcers, wound care and surgery following-wounds are improving ANTHROPOMETRICS: Current Wt: 61.2kg, BMI 23.1kg/m2 Admit wt 70.5kg ESTIMATED NEEDS (WOUNDS): Calories: 1835 - 2145 kcal (30 - 35 kcal / kg BW) Protein: 90 - 110 g protein (1.5 - 1.8 g / kg BW) NUTRITION DIAGNOSIS: 1) Increased nutrient needs related to multiple skin issues, as evidenced by pt with sacral / gluteal ulcers and need for I&D of wounds.--IMPROVING INTERVENTION: 1) Continue Ensure on all trays. 2) Continue Stevo with Lemon [place] Soda on L and D trays. MONITOR/EVALUATE: PO intake, wt, wounds, labs, GI/nutrition status. Follow up per moderate nutrition risk guidelines.
--- NOTE | 2017-02-03 10:23 | PCM.DIMED ---
Discharge Instructions Date of Service Feb 03, 2017 Dates of Hospitalization Jan 20, 2017 at 21:20 Discharge Diagnosis Discharge Diagnosis Primary diagnosis Acute sepsis secondary to Decubitus Ulcers status post surgical debridement. Bilateral Leg Cellulitis Elevated troponin due to demand ischemia from sepsis Acute encephalopathy. resolved Secondary diagnosis Methamphetamine abuse Psoriasis, chronic Multiple Sclerosis Anemia, normocytic hypochromic, chronic, Degenerative Disc Disease Diet Other (dysphagia mechanical diet) Activity Other Call your provider Fever or Chills, Bleeding Patient Instructions You have recovered from a serious infection and continue antibiotics You are going to long-term to continue to recover Follow-up plan You will be followed by Doctor at the long-term Wilton Cabrera MD Feb 03, 2017 10:22
[2017-02-03] MEDS ORDERED: PANT40TA3 PO (10:24)
[2017-02-03] MEDS ORDERED: OXYC1TAB24 PO (10:24)
--- NOTE | 2017-02-03 11:55 | NUR ---
faxed orders, packet ready. faxed [facility] transport to from in requesting cabulance for 1:30. LVM elida Clark at [facility] with this info.
--- NOTE | 2017-02-03 13:30 | NUR ---
Social Work-Discharge Data:EMR Reviewed. Pt is on day 14 of hospitalization for sacral decubitus per H&P. Pt is medically stable for discharge and insurance authorization has been obtained. UR Specialist spoke with admissions at [facility] who is agreeable to accepting pt today. SW informed pt and pt's of this, pt and agreeable to plan. UR Specialist coordinated [facility] transportation at 1400 via wheelchair. YUMIKO updated APS Worker Jose [phone] and faxed pt's clinicals prior to discharge. Pt to discharge to [facility] via [facility] transportation at 1400. UC, RN, pt/family, and [facility] all updated and agreeable to plan. Assessment:Pt who would benefit from SNF. Plan: Pt to discharge to [facility] via [facility] transportation at 1400. UC, RN, pt/family, and [facility] all updated and agreeable to plan. ASHELY Huerta
--- NOTE | 2017-02-03 15:00 | NUR ---
DISCHARGE Percocet 2 tabs and Methocarbamol PO has been effective for pain control. Via FELDT scale patients pain level after her pain medication is 0/10. Tolerating liquids PO and her diet well. Denies nausea. No emesis noted. Denies SOB. Patient is a 2 person max assist for transfers. Turned and repositioned Q 2 hrs. Dressing was changed this morning. IV saline lock d/cd. Discharge report given to Laurita montes RN in [facility] of [facility]. Discharged to [facility] with all her personal belongings via [facility] transport.
--- NOTE | 2017-02-04 01:06 | PCM.DC.MED ---
Discharge Summary Date of Service Feb 03, 2017 Dates of Hospitalization Date of Hospital Admission Jan 20, 2017 at 21:20 Date of Discharge: Feb 03, 2017 Providers: Admitting Physician: Mariah Corrales MD Primary Care Physician: Artur López DO Attending Physician: Mariah Corrales MD Diagnosis at Time of Discharge Diagnosis at Time of Discharge Primary diagnosis Acute sepsis secondary to Decubitus Ulcers status post surgical debridement. Bilateral Leg Cellulitis Elevated troponin due to demand ischemia from sepsis Acute encephalopathy. resolved Secondary diagnosis Methamphetamine abuse Psoriasis, chronic Multiple Sclerosis Anemia, normocytic hypochromic, chronic, Degenerative Disc Disease Consultations Infectious Disease: Dr Cuevas Surgery: Dr Hill Toledo Procedures XRay, CTs & MRIs X-RAY CHEST IMPRESSION: Negative chest. No acute cardiopulmonary process is suspected. Dictated and approved by: Alexey Babin M.D. on 01/20/2017 at 15:27 ECG 12 Lead Sinus rhythm with a rate of 95, normal axis, P waves before each QRS, normal R wave progression, slight ST segment depression in leads V4-5 Brief History The patient is an exceptionally unfortunate, 51-year-old woman, whom I know from a prior admission this year. The patient has a number of overlapping difficult problems made worse by her social situation. She has longstanding multiple sclerosis and is largely bed-bound, though she gets around in a wheelchair some, but she cannot ambulate. Additionally, she has chronic venous stasis changes on the lower extremities and urinary incontinence. She has some help at home from her , who recently had heart surgery, and an adult son who works outside of the home part of the day. Oftentimes, she is left sitting in urine and has had many problems at this and other hospitals with basically urine mina to her perineal and backside area. In addition to the EMS and problems with mobility and urine, she has psoriasis which further contributes to her skin problems. She also continues to be a cigarette smoker and has consistently positive urine for methamphetamines, though she denies the use of methamphetamine. She was admitted here in November, at which time, she had a great deal of erythematous tissue around her buttocks and both lower extremities, which we thought was mainly due to urinary incontinence, immobility, and lack of turning. She came in that time with a change in mental status and leukocytosis which rapidly resolved, and we ended up sending the patient out with a fairly short course of amoxicillin. During that November admission, it was found she had an extremely high ASO titer which suggested that at least part of the issue was Streptococcal superinfection of these superficial ulcerated areas. Since her discharge from here in November, the patient returned to the where she lives with her and son. Her had heart surgery lately and the patient has received less care in terms of turning and helping with mobility than usual. She was admitted to the [facility] in [place] during the last week of December. At that point, she was admitted to the [facility] during the last week of December with a change in mental status which was the same reason she was actually admitted here in November. During that admission, they discovered that there were areas of shallow ulceration and skin breakdown on her buttocks and legs, which is a familiar situation. These areas were cultured and apparently according the notes we had from [facility] grew MRSA and Pseudomonas. They treated her with a course of vancomycin and Zosyn, and then she was discharged once again back to her home environment. This admission occurred on January 20, when she was once again evaluated for change in mental status and possible soft tissue infection. The patient herself has little insight into what brought her in other than she had pain in her legs and around her buttock and perineal areas which is a relatively chronic complaint. She denied fevers, chills, or sweats once she was able to provide some history. Today, she complains of pain around her buttocks at the site of her recent debridement of her right inferior buttock that was done by Dr. Toledo of General Surgery. She also has some pain in her lower extremities but no fevers, no chills. No sweats. No significant sore throat, cough, or GI symptomatology. Hospital Course 51 year old female with history of multiple sclerosis, and severe psoriasis, who presented to Emergency Department with extensive sacral perineal and lower extremity decubitus secondary to prolonged exposure to stool and inability to reposition herself, she also has venous stasis changes in the left lower extremity skin, with breakdown involving the left posterior calf and dorsal foot. Patient was admitted to the hospital for severe pain, worsening bedsores , and cellulitis. 1. Acute sepsis, present on admission. Resolved - Initial Vital signs in the Emergency Department: Temperature 36.8, pulse 104, blood pressure 120/72, respiratory rate 18, 99% on room air. White blood count 14.7, PMNs 82.2% - Patient was diagnosed on 12/26/2016 with a Pseudomonas UTI at [facility]. Patient has chronic open wounds. - Per infectious disease recommendation discontinued vancomycin, meropenem and clindamycin and started her on Linezolid, 600 mg by mouth twice a day through January 30 to complete one week (COMPLETED ALL ANTIBIOTICS) - Started on mupirocin ointment to the nares twice a day for MRSA + screen 2 Decubitus Ulcers, chronic, present on admission, status post surgical debridement. Active. multiple sclerosis with multiple chronic bedsores. - Extensive involvement of the perineal area which appeared red and raw and reminiscent of a burn injury. Bilateral buttock pressure ulcers, with prominent eschar of the right buttock. Left lower extremity calf and dorsal foot decubitus. - Per [facility] note patient's wounds and "Urine mina" were present during that admission. - Was recently hospitalized in [facility] between 12/26/16 and 01/03/17. At [facility] patient had wound culture which grew Pseudomonas and MRSA. Was treated with Vanco and Zosyn. - Wound care is following patient on outpatient status. - In the Emergency Department Cordero catheter was placed - A P500 bed was ordered for the patient - Silvadene diapers per [facility] burn center recommendation. - left leg ulcer: wrapped using xeroform, kerlix and surgilast, this can be changed by nursing daily. - No brief on this patient to allow air flow to this skin and treat skin in the meantime with shield wipes daily after pericare. - Surgical debridement done 01/22/[address] Toledo: cutaneous and subcutaneous debridement of sacral and gluteal closed decubitus ulcers 3 Bilateral Leg Cellulitis, present on admission. Resolved - skin breakdown of lower extremities, with associated erythema extending to the distal toes. The bilateral involvement brings into question as to whether or not cellulitis truly is the correct diagnosis. - Differential diagnosis includes worsening stasis dermatitis, versus other inflammatory process such as her worsening psoriasis. - Of note patient does have history of stasis dermatitis. - Antibiotic and wound care as above. 4 Elevated troponin, present on admission. Active - Most likely due to demand ischemia from sepsis - Denies chest pain, heart palpitations, shortness of breath, diaphoresis - EKG showed sinus rhythm with a rate of 95, normal axis, P waves before each QRS, normal R-wave progression, slight [address] segment depression leads V4-5. 5 Acute encephalopathy, present on admission. resolved - Etiologies include infectious, severe pain, dehydration, illicit drug abuse to include methamphetamine, THC, and opiates. 6 Methamphetamine abuse, present on admission. Active - Urine tox returned positive for methamphetamine. 7 Psoriasis, chronic, present on admission. Active - Dermatology follow up as an outpatient 8 Multiple Sclerosis diagnosed in 2003, present on admission. Active - Followed by Dr. Alvarado, Neurologist, was last seen 1 year ago - For leg muscle spasms continue with Baclofen and prn methocarbamol 9 Anemia, normocytic hypochromic, chronic, present on admission. Stable 10 Degenerative Disc Disease - Continue with supportive care . Exam Vital Signs (Last) Date Time Temp Pulse Resp B/P Pulse Ox O2 Delivery O2 Flow Rate FiO2 02/03/17 08:47 36.6 76 20 112/72 96 Room Air Exam General: Alert, Cooperative, No Acute Distress Head: Normal Eyes: Scleral Anicteric Nose: Mucous Moist/[place] Mouth: Mucous Moist/[place] Neck: Supple Chest & Lungs: Chest Wall Normal, Clear to auscultation bilat Cardiovascular: Regular Rate/Rhythm Abdomen: Non-tender, Non-distended, Normoactive bowel tones, Soft Extremities: No cyanosis/clubbing/edema bilateral Neurological: Cranial Nerves 2-12 Intact, Normal Speech Test 01/20/17 15:20 01/20/17 15:37 01/21/17 13:50 01/23/17 04:55 Hemoglobin A1c 5.8% (4.8-5.6) Lactic Acid Level 1.6mmol/L (0.4-2.0) Total Creatine Kinase 92U/L (21-215) Pro-B-Type Natriuretic Peptide 86.13pg/mL (0-249) Urine Color Dark yellow (YELLOW) Urine Appearance Clear (CLEAR,HAZY) Urine pH 6.0 (5.0-8.0) Urine Specific [place] 1.025 (1.003-1.035) Urine Protein Negativemg/dL (NEG,TRACE) Urine Glucose (UA) Negativemg/dL (NEGATIVE) Urine Ketones Negativemg/dL (NEGATIVE) Urine Occult Blood Negative (NEGATIVE) Urine Nitrite Negative (NEGATIVE) Urine Bilirubin Negative (NEGATIVE) Urine Urobilinogen Normalmg/dL (NORMAL) Urine Leukocyte Esterase Negative (NEGATIVE) Urine RBC 0-2/hpf (0-2) Urine WBC 0-5/hpf (0-5) Urine Epithelial Cells Occasional/hpf (NONE-MOD) Urine Crystals None seen (NONE SEEN) Urine Bacteria None/hpf (NONE-FEW) Urine Hyaline Casts None/lpf (NONE) Urine Granular Casts None seen (NONE SEEN) Urine Waxy Casts None seen (NONE SEEN) Urine Red Blood Cell Casts None seen (NONE SEEN) Urine White Blood Cell Casts None seen (NONE SEEN) Urine Mucus None seen (None Seen) Urine Trichomonas None seen (NONE SEEN) Urine Yeast None (NONE SEEN) Urinalysis Comment None Urine Culture Reflexed Not indicated Troponin T 0.088ug/L (0.0-0.011) Procalcitonin 0.05ng/mL (0.00-0.08) Vancomycin Level Trough 15.9mcg/mL Test 01/24/17 04:40 01/31/17 05:25 Total Bilirubin 0.2mg/dL (0.0-1.2) Aspartate Amino Transf (AST/SGOT) 5U/L (0-50) Alanine Aminotransferase (ALT/SGPT) 11U/L (0-32) Alkaline Phosphatase 65U/L (25-150) Total Protein 5.3g/dL (6.4-8.4) Albumin 2.4g/dL (3.4-5.0) Prealbumin 10mg/dL (20-40) White Blood Count 7.5th/mm3 (3.8-10.1) Red Blood Count 3.75mil/mm3 (3.90-5.20) Hemoglobin 9.5g/dL (12.0-15.6) Hematocrit 31.2% (35.0-46.0) Mean Corpuscular Volume 83.2fL (81-100) Mean Corpuscular Hemoglobin 25.3pg (27.0-35.0) Mean Corpuscular Hemoglobin Concent 30.4% (32.0-37.0) Red Cell Distribution Width 17.9% (12.3-15.4) Platelet Count 516bil/L (150-400) Neutrophils (%) (Auto) 51.2% (40-74) Lymphocytes (%) (Auto) 25.7% (14-46) Monocytes (%) (Auto) 15.7% (4-12) Eosinophils (%) (Auto) 6.4% (0-5) Basophils (%) (Auto) 0.7% (0-3) Prothrombin Time 9.9sec (8.1-12.5) Prothromb Time International Ratio 0.93ratio Activated Partial Thromboplast Time 28.5sec (22.8-33.0) Sodium Level 139mEq/L (134-144) Potassium Level 4.7mEq/L (3.5-5.2) Chloride Level 102mEq/L (97-108) Carbon Dioxide Level 22mmol/L (18-29) Blood Urea Nitrogen 21mg/dL (6-24) Creatinine 0.53mg/dL (0.57-1.00) Estimat Glomerular Filtration Rate 174mL/min (>59) Glucose Level 99mg/dL (60-99) Calcium Level 9.2mg/dL (8.5-10.1) Magnesium Level 2.0mg/dL (1.6-2.6) Discharge Medications Discharge Medications Aspirin Chew (Aspirin Chew) 81 Mg Chew 324 MG PO QID (Reported) Cholecalciferol (Vitamin D3) (Vitamin D3) 2,000 Unit Tablet 2,000 UNIT PO DAILY (Reported) Cyanocobalamin (Vitamin B12) 500 Mcg Tablet 1,000 MCG PO DAILY (Reported) Ibuprofen (Ibuprofen) 200 Mg Capsule 800-1,000 MG PO QID (Reported) Pantoprazole DR (Pantoprazole DR) 40 Mg Tablet.dr 40 MG PO 0630 Prescribed by: MARIAH OCRRALES MD As needed ([Bisacodyl]) 10 MG SUPP 10 MG RECTAL DAILY PRN PRN For Constipation Prescribed by: MARIO CASTLE MD Baclofen (Baclofen) 10 Mg Tablet 5 MG PO TID PRN PRN For Spasm (Reported) Methocarbamol (Methocarbamol) 750 Mg Tablet 750 MG PO QID PRN PRN For Spasm ( Reported) Mineral Oil (Mineral Oil Enema) 133 Ml Enema 133 ML RECTAL DAILY PRN PRN For Constipation Prescribed by: MARIO CASTLE MD Polyethylene Glycol 3350 (Miralax) 17 Gm Powd.pack 17-34 GM PO DAILY PRN PRN For Constipation Prescribed by: MARIO CASTLE MD Sennosides (Senna) 8.6 Mg Tablet 17.2-34.4 MG PO BID PRN PRN For Constipation Prescribed by: MARIO CASTLE MD oxyCODONE-Acetaminophen 5-325 mg (oxyCODONE-Acetaminophen 5-325 mg) 1 Each Tablet 1-2 TAB PO Q4H PRN PRN For Pain Prescribed by: MARIO CASTLE MD oxyCODONE-Acetaminophen 5-325 mg (oxyCODONE-Acetaminophen 5-325 mg) 1 Each Tablet 1-2 TAB PO Q4H PRN PRN For Pain Prescribed by: MARIAH CORRALES MD Followup Plan Disposition: [facility] [place] under Dr Sanders Follow-up plan You will be followed by Doctor at the senior living Discharge Diet: Other (dysphagia mechanical diet) Discharge Activity: Other Patient Instructions You have recovered from a serious infection and continue antibiotics You are going to senior living to continue to recover Time spent 33 minutes spend Mariah Corrales MD Feb 03, 2017 10:25
[2017-03-12] MEDS ORDERED: GABA100C PO (07:57)
[2017-03-12] MEDS ORDERED: METR500T PO (07:57)
[2017-03-12] MEDS ORDERED: TRAM-14 PO (07:57)
== END 2017-02-03 14:50 | DRG 720 ==
LOC: EDUNIT# 14:05 → EDBD 14:05 → SED 14:05 → PCC 21:20 → OSC 01-24 16:06
PROVIDERS: ADMIT Hospitalist; ATTEND Hospitalist
PROC: 0JB90ZZ Excision of Buttock Subcutaneous Tissue and Fascia, Open Approach (ICD-10-PCS; 2017-01-22)
PROC: 0JB70ZZ Excision of Back Subcutaneous Tissue and Fascia, Open Approach (ICD-10-PCS; principal; 2017-01-22 09:00)
DX: A41.9 Sepsis, unspecified organism (principal); G93.40 Encephalopathy, unspecified; L89.159 Pressure ulcer of sacral region, unspecified stage; I24.8 Other forms of acute ischemic heart disease; L03.116 Cellulitis of left lower limb; L03.115 Cellulitis of right lower limb; D64.9 Anemia, unspecified; F17.210 Nicotine dependence, cigarettes, uncomplicated; G35 Multiple sclerosis; F15.10 Other stimulant abuse, uncomplicated; L89.310 Pressure ulcer of right buttock, unstageable